=== PATIENT | male | born 1950 | race Caucasian/White ===

== ENCOUNTER 2016-11-30 08:10 | Inpatient (IN) ==
[2016-11-30 09:45] LABS: Basophils % 0.3 %; Eosinophils # 0.1 K/mcL (0.0-0.6); Eosinophils % 0.9 %; Hematocrit 42.3 % (37.5-50.1); Hemoglobin 13.8 g/dL (12.9-16.9); Immature Granulocytes % 0.4 % (0-4); Immature Platelets 8.9 % (1.1-6.1); Lymphocytes # 1.2 K/mcL (0.6-4.6); Mean Corpuscular HGB Conc 32.6 g/dL (31.6-35.5); Mean Corpuscular Hemoglobin 29.9 pg (28.0-33.3); Mean Corpuscular Volume 91.8 fL (83.0-100.0); Mean Platelet Volume 10.7 fL (9.4-12.4); Monocytes # 0.5 K/mcL (0.0-1.3); Monocytes % 6.9 %; Neutrophils # 5.2 K/mcL (1.6-8.9); Platelet Count 144 K/mcL (140-400); Red Blood Count 4.61 M/mcL (4.19-5.50); Red Cell Distribution Width 14.6 % (11.5-14.5); Segmented Neutrophils % 74.5 %
[2016-11-30 09:52] LABS: INR 1.1; Prothrombin Time 12.3 Seconds (9.4-12.1)
[2016-11-30 09:55] LABS: Activated Partial Thrombo Time 33.8 Seconds (26.0-36.0)
[2016-11-30 09:56] LABS: BUN/Creatinine Ratio 23 (6-26); Blood Urea Nitrogen 14 mg/dL (8-26); Calcium 8.8 mg/dL (8.6-10.8); Carbon Dioxide 27 mEq/L (19-29); Chloride 95 mEq/L (98-109); Glucose 80 mg/dL (70-99); Osmolality,Calculated 269 (280-300); Potassium 4.4 mEq/L (3.5-4.5); Sodium 130 mEq/L (136-145); eGFR For African Americans > 60 (> 60); eGFR For Non-African Americans > 60 (> 60)
[2016-12-01 07:22] LABS: Basophils % 0.1 %; Eosinophils % 0.4 %; Hematocrit 39.6 % (37.5-50.1); Immature Granulocytes % 0.1 % (0-4); Lymphocytes % 13.3 %; Mean Corpuscular HGB Conc 32.8 g/dL (31.6-35.5); Mean Corpuscular Hemoglobin 30.4 pg (28.0-33.3); Mean Corpuscular Volume 92.7 fL (83.0-100.0); Mean Platelet Volume 11.7 fL (9.4-12.4); Monocytes # 0.5 K/mcL (0.0-1.3); Platelet Count 122 K/mcL (140-400); Red Blood Count 4.27 M/mcL (4.19-5.50); Red Cell Distribution Width 14.6 % (11.5-14.5); Segmented Neutrophils % 79.1 %
[2016-12-01 08:06] LABS: BUN/Creatinine Ratio 18 (6-26); Blood Urea Nitrogen 12 mg/dL (8-26); Calcium 8.4 mg/dL (8.6-10.8); Carbon Dioxide 29 mEq/L (19-29); Chloride 90 mEq/L (98-109); Glucose 76 mg/dL (70-99); Osmolality,Calculated 265 (280-300); Potassium 3.9 mEq/L (3.5-4.5); Sodium 128 mEq/L (136-145); eGFR For African Americans > 60 (> 60); eGFR For Non-African Americans > 60 (> 60)
[2016-12-01 14:44] LABS: ABG Base Excess 3.9 mEq/L (-2.0 to 3.0); ABG HCO3 36.8 mEQ/L (21-27); ABG Oxygen Saturation 90 % (95-98); ABG PO2 75 mmHg (85-104); ABG TCO2 40.1 mEq/L (20-26)
[2016-12-01 14:46] LABS: ABG PCO2 108 mmHg (35-45); ABG PH 7.14 pH Units (7.32-7.45)
[2016-12-01 14:47] LABS: Blood Gas FiO2 28 %
[2016-12-01 16:58] LABS: ABG Base Excess 4.8 mEq/L (-2.0 to 3.0); ABG Oxygen Saturation 96 % (95-98); ABG PO2 98 mmHg (85-104)
[2016-12-01 17:00] LABS: ABG PCO2 99 mmHg (35-45); ABG PH 7.18 pH Units (7.32-7.45); Blood Gas FiO2 35 %
[2016-12-01 18:42] LABS: ABG Base Excess 8.4 mEq/L (-2.0 to 3.0); ABG HCO3 34.9 mEQ/L (21-27); ABG Oxygen Saturation 96 % (95-98); ABG PCO2 55 mmHg (35-45); ABG PH 7.41 pH Units (7.32-7.45); ABG PO2 79 mmHg (85-104); ABG TCO2 36.6 mEq/L (20-26); Blood Gas FiO2 35 %
[2016-12-02 04:37] LABS: Basophils % 0.3 %; Eosinophils # 0.1 K/mcL (0.0-0.6); Eosinophils % 0.9 %; Hematocrit 41.5 % (37.5-50.1); Hemoglobin 13.8 g/dL (12.9-16.9); Immature Granulocytes % 0.3 % (0-4); Lymphocytes # 1.5 K/mcL (0.6-4.6); Lymphocytes % 21.6 %; Mean Corpuscular HGB Conc 33.3 g/dL (31.6-35.5); Mean Corpuscular Hemoglobin 29.7 pg (28.0-33.3); Mean Corpuscular Volume 89.4 fL (83.0-100.0); Mean Platelet Volume 11.5 fL (9.4-12.4); Monocytes # 0.8 K/mcL (0.0-1.3); Monocytes % 11.6 %; Neutrophils # 4.4 K/mcL (1.6-8.9); Platelet Count 127 K/mcL (140-400); Red Blood Count 4.64 M/mcL (4.19-5.50); Red Cell Distribution Width 14.6 % (11.5-14.5); Segmented Neutrophils % 65.3 %
[2016-12-02 04:48] LABS: Ionized Calcium 1.09 mmol/L (1.15-1.35)
[2016-12-02 04:58] LABS: Alanine Aminotransferase 16 Units/L (0-55); Albumin 2.9 g/dL (3.5-5.0); Albumin/Globulin Ratio 0.7 (1.1-2.2); Alkaline Phosphatase 115 Units/L (38-126); Aspartate Amino Transferase 16 Units/L (5-34); BUN/Creatinine Ratio 13 (6-26); Bilirubin,Direct 0.5 mg/dL (0.0-0.5); Bilirubin,Indirect 0.5 mg/dL (0.0-1.2); Blood Urea Nitrogen 12 mg/dL (8-26); Carbon Dioxide 30 mEq/L (19-29); Chloride 93 mEq/L (98-109); Globulin 3.9 g/dL (2.4-3.5); Glucose 64 mg/dL (70-99); Magnesium 1.3 mg/dL (1.6-2.6); Osmolality,Calculated 274 (280-300); Phosphorous 1.2 mg/dL (2.3-4.7); Potassium 3.6 mEq/L (3.5-4.5); Sodium 133 mEq/L (136-145); Total Protein 6.8 g/dL (6.0-8.3); eGFR For African Americans > 60 (> 60); eGFR For Non-African Americans > 60 (> 60)
[2016-12-02 05:28] LABS: ABG Base Excess 12.2 mEq/L (-2.0 to 3.0); ABG HCO3 34.4 mEQ/L (21-27); ABG Oxygen Saturation 91 % (95-98); ABG PCO2 35 mmHg (35-45); ABG TCO2 35.5 mEq/L (20-26)
[2016-12-02 05:31] LABS: ABG PO2 50 mmHg (85-104)
[2016-12-03 04:00] LABS: ABG Base Excess 7.5 mEq/L (-2.0 to 3.0); ABG HCO3 33.7 mEQ/L (21-27); ABG Oxygen Saturation 96 % (95-98); ABG PCO2 52 mmHg (35-45); ABG PH 7.42 pH Units (7.32-7.45); ABG PO2 83 mmHg (85-104); ABG TCO2 35.3 mEq/L (20-26)
[2016-12-03 04:01] LABS: Blood Gas FiO2 40 %
[2016-12-03 04:45] LABS: Basophils % 0.2 %; Eosinophils # 0.1 K/mcL (0.0-0.6); Eosinophils % 0.6 %; Hematocrit 40.1 % (37.5-50.1); Hemoglobin 13.1 g/dL (12.9-16.9); Immature Granulocytes % 0.5 % (0-4); Lymphocytes # 1.4 K/mcL (0.6-4.6); Lymphocytes % 14.6 %; Mean Corpuscular HGB Conc 32.7 g/dL (31.6-35.5); Mean Corpuscular Hemoglobin 30.5 pg (28.0-33.3); Mean Corpuscular Volume 93.3 fL (83.0-100.0); Mean Platelet Volume 11.3 fL (9.4-12.4); Monocytes # 1.2 K/mcL (0.0-1.3); Monocytes % 12.2 %; Platelet Count 120 K/mcL (140-400); Red Cell Distribution Width 15.4 % (11.5-14.5); Segmented Neutrophils % 71.9 %
[2016-12-03 04:47] LABS: Ionized Calcium 1.09 mmol/L (1.15-1.35)
[2016-12-03 05:01] LABS: Albumin 2.7 g/dL (3.5-5.0); Albumin/Globulin Ratio 0.7 (1.1-2.2); Bilirubin,Direct 0.7 mg/dL (0.0-0.5); Bilirubin,Indirect 0.5 mg/dL (0.0-1.2); Bilirubin,Total 1.2 mg/dL (0.2-1.2); Calcium 8.9 mg/dL (8.6-10.8); Globulin 3.9 g/dL (2.4-3.5); Magnesium 1.4 mg/dL (1.6-2.6); Potassium 3.7 mEq/L (3.5-4.5); Total Protein 6.6 g/dL (6.0-8.3)
[2016-12-03 05:03] LABS: Phosphorous 3.1 mg/dL (2.3-4.7)
[2016-12-04 05:36] LABS: Ionized Calcium 1.03 mmol/L (1.15-1.35)
[2016-12-04 05:44] LABS: Basophils % 0.2 %; Eosinophils % 0.2 %; Hemoglobin 12.6 g/dL (12.9-16.9); Immature Granulocytes % 0.5 % (0-4); Lymphocytes # 1.5 K/mcL (0.6-4.6); Lymphocytes % 11.7 %; Mean Corpuscular HGB Conc 32.3 g/dL (31.6-35.5); Mean Corpuscular Hemoglobin 30.2 pg (28.0-33.3); Mean Corpuscular Volume 93.5 fL (83.0-100.0); Mean Platelet Volume 11.6 fL (9.4-12.4); Monocytes # 1.2 K/mcL (0.0-1.3); Monocytes % 9.4 %; Neutrophils # 9.8 K/mcL (1.6-8.9); Platelet Count 139 K/mcL (140-400); Red Blood Count 4.17 M/mcL (4.19-5.50)
[2016-12-04 05:47] LABS: Alanine Aminotransferase 16 Units/L (0-55); Albumin 2.6 g/dL (3.5-5.0); Albumin/Globulin Ratio 0.6 (1.1-2.2); Alkaline Phosphatase 93 Units/L (38-126); Aspartate Amino Transferase 27 Units/L (5-34); BUN/Creatinine Ratio 14 (6-26); Bilirubin,Direct 0.9 mg/dL (0.0-0.5); Blood Urea Nitrogen 15 mg/dL (8-26); Calcium 8.9 mg/dL (8.6-10.8); Carbon Dioxide 28 mEq/L (19-29); Chloride 94 mEq/L (98-109); Globulin 4.4 g/dL (2.4-3.5); Glucose 94 mg/dL (70-99); Magnesium 1.8 mg/dL (1.6-2.6); Osmolality,Calculated 279 (280-300); Phosphorous 3.2 mg/dL (2.3-4.7); Potassium 4.1 mEq/L (3.5-4.5); Sodium 134 mEq/L (136-145); eGFR For African Americans > 60 (> 60); eGFR For Non-African Americans > 60 (> 60)
[2016-12-04 05:48] LABS: Bilirubin,Total 1.9 mg/dL (0.2-1.2)
[2016-12-04 12:04] LABS: ABG Base Excess 6.8 mEq/L (-2.0 to 3.0); ABG HCO3 33.7 mEQ/L (21-27); ABG Oxygen Saturation 93 % (95-98); ABG PCO2 57 mmHg (35-45); ABG PH 7.38 pH Units (7.32-7.45); ABG PO2 69 mmHg (85-104); ABG TCO2 35.4 mEq/L (20-26)
[2016-12-04 12:05] LABS: Blood Gas FiO2 70 %
[2016-12-05 05:36] LABS: BUN/Creatinine Ratio 19 (6-26); Blood Urea Nitrogen 16 mg/dL (8-26); Calcium 8.8 mg/dL (8.6-10.8); Carbon Dioxide 29 mEq/L (19-29); Chloride 96 mEq/L (98-109); Glucose 86 mg/dL (70-99); Osmolality,Calculated 284 (280-300); Phosphorous 2.6 mg/dL (2.3-4.7); Potassium 4.1 mEq/L (3.5-4.5); Sodium 137 mEq/L (136-145); eGFR For African Americans > 60 (> 60); eGFR For Non-African Americans > 60 (> 60)
[2016-12-05 06:25] LABS: Basophils % 0.2 %; Eosinophils # 0.1 K/mcL (0.0-0.6); Eosinophils % 1.3 %; Hematocrit 41.1 % (37.5-50.1); Hemoglobin 13.2 g/dL (12.9-16.9); Immature Granulocytes % 0.5 % (0-4); Lymphocytes # 1.3 K/mcL (0.6-4.6); Lymphocytes % 12.8 %; Mean Corpuscular HGB Conc 32.1 g/dL (31.6-35.5); Mean Corpuscular Hemoglobin 30.3 pg (28.0-33.3); Mean Corpuscular Volume 94.5 fL (83.0-100.0); Mean Platelet Volume 11.8 fL (9.4-12.4); Monocytes % 9.9 %; Neutrophils # 7.4 K/mcL (1.6-8.9); Platelet Count 136 K/mcL (140-400); Red Blood Count 4.35 M/mcL (4.19-5.50); Red Cell Distribution Width 14.8 % (11.5-14.5); Segmented Neutrophils % 75.3 %
[2016-12-05 13:56] VITALS: BP 112/72
== END 2016-12-05 16:20 | disposition home or self-care (01) | DRG 208 ==
LOC: EMEROO 08:10 → 2NENU 08:10 → SUATTDRO 12-01 18:13 → 2NNU 12-03 16:34
PROVIDERS: ADMIT Internal Medicine; ATTEND Internal Medicine

== ENCOUNTER 2018-04-11 22:11 | Observation (INO) ==
[2018-04-11] MEDS ORDERED: 0.9 % Sodium Chloride 1,000 ML IVC ONE (22:38)
[2018-04-11 23:41] LABS: VBG HCO3 22 mEq/L (21-27); VBG PCO2 35 mmHg (41-51); VBG PH 7.42 pH Units (7.32-7.42); VBG PO2 105 mmHg (25-50)
--- NOTE | 2018-04-11 23:42 | Emergency Department Note ---
Disposition Clinical Impression: UTI (urinary tract infection) Qualifiers: Urinary tract infection type: acute cystitis Hematuria presence: with hematuria Qualified Code(s): N30.01 - Acute cystitis with hematuria Hydronephrosis Qualifiers: Qualified Code(s): N13.30 - Disposition: Admitted As Inpatient Condition: Good General Adult HPI - General Chief complaint: ED Urogenital-Male Stated complaint: UTI, headache Time Seen by Provider: 04/11/18 22:25 Source: patient Mode of arrival: private vehicle Limitations: no limitations Nursing Notes Reviewed: Yes Vital Signs Reviewed: Yes - History of Present Illness HPI Narrative: 68-year-old male with a history of quadriplegia, COPD, chronic A. fib without anticoagulation, pacer, colostomy, nephrectomy status post kidney cancer, chronic Rasheed catheter, pressure ulcers presents emergency department for UTI [address] Alfaro from urology. Dr. Alfaro had placed patient on doxycycline for this UTI which failed, they changed another antibiotic which he has been on for 7 days. Patient comes to the emergency department due to his catheter leaking, noticing heterogenous drainage which appears to be "pus". Patient also complaining of new onset headaches to the top of his head for the last week and half. Patient and family states he is unsure why they came on but they are throbbing, they are associated with his catheter leaking as states that when he has a really bad headache the catheter leaks even more. Patient follows with [facility] for his wounds and is status post debridement, orthopedic surgery for wound a few months ago. Patient family deny fever, difficulty breathing, shortness of breath. Patient is unable to feel if he becomes nauseous or not. states that he has had adequate production of stool in his bag and urine from the catheter. Patient does take aspirin 81 mg every day for the chronic A. fib. Apparently, he had been on anticoagulation however, this resulting in bleeding through his catheter so it was stopped. Patient and family deny confusion, alteration of mental status, increased weakness, visual disturbances, strokelike symptoms. Onset (ago): week(s) Pain Scale: 6 - Related Data Home Medications Medication Instructions Recorded Confirmed Aspirin Enteric Coated [Aspirin EC] 81 mg PO HS 05/25/15 11/25/17 Dantrolene Sodium 100 mg PO TID 05/30/16 11/25/17 traZODone [TraZODone] 50 mg PO HS 11/30/16 11/25/17 Ascorbate Calcium [Vitamin C] 500 mg PO DAILY 01/15/17 11/25/17 Multivit-Min/FA/Lycopen/Lutein 1 each PO DAILY 01/15/17 11/25/17 [Adults 50+ Multivitamin Tablet] Acidophilus Lactobacilli 02/03/18 Fluticasone Propionate Nasal 02/03/18 [Flonase] Furosemide [Lasix] 20 mg PO 04/12/18 04/12/18 Allergies Allergy/AdvReac Type Severity Reaction Status Date / Time latex Allergy Rash Verified 04/11/18 22:23 Sulfa (Sulfonamide Allergy Difficulty Verified 11/30/16 13:00 Antibiotics) Breathing All systems ED: reviewed and negative except as stated. Review of Systems: As Per HPI Past Medical History - Past Medical History Attestation: Yes The following information was validated with the patient. Source: patient Medical history: Reports: cancer, CHF, COPD Surgical history: Reports: cancer surgery, cholecystectomy, colostomy, pacemaker /AICD, other Psychiatric history: Reports: no psych history - Social History Smoking Status: Never smoker Smokeless Tobacco Status: No Alcohol use: Reports: none Drug use: Reports: none Physical Exam - General Limitations: no limitations General appearance: alert, in no apparent distress - Head Head exam: atraumatic, normocephalic, normal inspection - Eye Eye exam: Present: normal appearance, PERRL, EOMI - ENT ENT exam: mucous membranes moist - Neck Neck exam: Present: normal inspection, full ROM, trachea midline. Absent: tenderness, lymphadenopathy - Chest Chest inspection: Present: normal inspection, symmetric chest wall rise - Respiratory Respiratory exam: Present: normal lung sounds bilaterally - Cardiovascular Cardiovascular exam: Present: regular rate, normal rhythm, normal heart sounds - Abdominal Exam Abdominal exam: Present: soft, normal bowel sounds. Absent: distention, guarding, rebound, rigidity - Male exam: Present: scrotal swelling (Chronic), other (Full catheter in place noted with heterogenous urine, urine dark yellow, small amount of drainage from catheter at penile site) - Back Exam Back exam: Present: normal inspection, full ROM. Absent: tenderness - Neurological Exam Neurological exam: Present: alert, oriented X3 - Psychiatric Psychiatric exam: Present: normal affect, normal mood - Skin Skin exam: Present: warm, dry, intact, normal color, other (Wound VAC to right hip, drainage sanguinous, no signs of infection around wound, no pustular drainage to container) Course Course Narrative: Nontoxic appearing male in no acute distress. He is resting quietly in the bed. Alert and oriented 3, neurologically intact-to baseline. He follows conversation well. Respirations are easy and even, lungs clear to auscultate. Abdomen soft colostomy in place; scrotal swelling, chronic hydrocele, rasheed catheter patent and draining dark yellow urine with some heterogenous particles , small amount of leaking around insertion area, catheter clean. Wound VAC to right hip sealed, draining fluid without signs of purulence, kevin-wound in good condition. We will obtain basic labs, head CT, abd CT and reevaluate. Spoke with attending Dr. Koehler who is agreeable to plan of care - Reevaluation(s) Reevaluation #1: Patient has been resting comfortably, catheter change with a 20-[place] Rasheed which is what he uses at home, any urinary return and then noted with clots. Rasheed irrigated with minimal return, why states this is common and that Dr. Alfaro sometimes irrigates where he actually has to remove the clots due to bladder collapsing. I spoke with Dr. Haro who is on-call for urology regarding possibility of CBI, Dr. Haro states he is okay was CBI though it does take a very large bore catheter, he states attempt manual irrigation or just await consultation in AM. Time: 00:52 Reevaluation #2: CT scans returned, head CT negative for intercranial bleeding or acute abnormality. Abdominal CT shows mild hydronephrosis to a kidney obstruction or stricture at the UVJ. Patient has been resting quietly, speaking with his . No change in physical assessment. Urinalysis to be sent by culture. Started linezold IV. Spoke with hospitalist regarding admission, accepted patient and will add ceftriaxone as well for double coverage of recent cultures of urine. Urology will be consulted for admission. At this time patient will be admitted to the hospital. Family is agreeable with plan of care. After initially entering hospital hypersensitive, but admitted to hospital patient blood pressure had normalized, he remained afebrile, non-tachycardic, not hypoxic. I did not appreciate any signs of sepsis. Time: 02:37 Vital Signs Temperature 98.0 F 04/11/18 22:14 Pulse Rate 86 04/11/18 22:14 Respiratory Rate 16 04/11/18 22:14 Blood Pressure 91/71 04/11/18 22:14 O2 Sat by Pulse Oximetry 94 04/11/18 22:14 Temperature 98.0 F 04/12/18 03:40 Pulse Rate 77 04/12/18 03:40 Respiratory Rate 14 04/12/18 03:40 Blood Pressure 103/66 04/12/18 03:40 O2 Sat by Pulse Oximetry 96 04/12/18 03:40 Oxygen Delivery Oxygen Delivery Room Air Medical Decision Making - Medical Records Medical records reviewed: Yes I reviewed the patient's medical records. - Lab Data Lab results reviewed: Yes I reviewed the patient's lab results. Result diagrams: 04/11/18 23:22 04/11/18 23:22 Lab Results 04/11/18 04/11/18 04/11/18 Range/Units 23:22 23:22 23:22 WBC 10.7 (4.3-11.1) K/mcL RBC 4.64 (4.19-5.50) M/mcL Hgb 13.3 (12.9-16.9) g/dL Hct 41.9 (37.5-50.1) % MCV 90.3 (83.0-100.0) fL MCH 28.7 (28.0-33.3) pg MCHC 31.7 (31.6-35.5) g/dL RDW 17.4 H (11.5-14.5) % Plt Count 207 (140-400) K/mcL MPV 11.2 (9.4-12.4) fL Immature Gran % 0.8 (0-4) % Seg Neutrophils % 67.2 % Lymphocytes % 24.1 % Monocytes % 4.9 % Eosinophils % 2.5 % Basophils % 0.5 % Neutrophils # 7.2 (1.6-8.9) K/mcL Lymphocytes # 2.6 (0.6-4.6) K/mcL Monocytes # 0.5 (0.0-1.3) K/mcL Eosinophils # 0.3 (0.0-0.6) K/mcL Basophils # 0.1 (0.0-0.2) K/mcL PT 13.6 H (9.4-12.1) Seconds INR 1.2 APTT 34.0 (26.0-36.0) Seconds VBG pH (7.32-7.42) pH Units VBG pCO2 (41-51) mmHg VBG pO2 (25-50) mmHg VBG HCO3 (21-27) mEq/L Sodium 140 (136-145) mEq/L Potassium 3.8 (3.5-5.1) mEq/L Chloride 110 H (98-107) mEq/L Carbon Dioxide 21 L (23-29) mEq/L BUN 24 H (8-23) mg/dL Creatinine 0.79 (0.70-1.30) mg/dL Est GFR ( Amer) > 60 (> 60) Est GFR (Non-Af Amer) > 60 (> 60) BUN/Creatinine Ratio 30 H (6-26) Glucose 98 (70-105) mg/dL Calculated Osmolality 294 (280-300) Lactic Acid (0.5-2.2) mmol/L Calcium 8.5 L (8.6-10.3) mg/dL Ur Specimen Adequacy Urine Color (Yellow) Urine Clarity (Clear) Urine pH (5.0-8.0) pH Units Ur Specific [place] (1.010-1.025) Urine Protein (Neg-Trace) mg/dL Urine Glucose (UA) (Normal) mg/dL Urine Ketones (Negative) mg/dL Urine Blood (Negative) Urine Nitrite (Negative) Urine Bilirubin (Negative) Urine Urobilinogen (Normal) mg/dL Ur Leukocyte Esterase (Negative) Ur Culture Indicated? (NO) 04/11/18 04/11/18 04/12/18 Range/Units 23:22 23:32 00:40 WBC (4.3-11.1) K/mcL RBC (4.19-5.50) M/mcL Hgb (12.9-16.9) g/dL Hct (37.5-50.1) % MCV (83.0-100.0) fL MCH (28.0-33.3) pg MCHC (31.6-35.5) g/dL RDW (11.5-14.5) % Plt Count (140-400) K/mcL MPV (9.4-12.4) fL Immature Gran % (0-4) % Seg Neutrophils % % Lymphocytes % % Monocytes % % Eosinophils % % Basophils % % Neutrophils # (1.6-8.9) K/mcL Lymphocytes # (0.6-4.6) K/mcL Monocytes # (0.0-1.3) K/mcL Eosinophils # (0.0-0.6) K/mcL Basophils # (0.0-0.2) K/mcL PT (9.4-12.1) Seconds INR APTT (26.0-36.0) Seconds VBG pH 7.42 (7.32-7.42) pH Units VBG pCO2 35 L (41-51) mmHg VBG pO2 105 H (25-50) mmHg VBG HCO3 22 (21-27) mEq/L Sodium (136-145) mEq/L Potassium (3.5-5.1) mEq/L Chloride (98-107) mEq/L Carbon Dioxide (23-29) mEq/L BUN (8-23) mg/dL Creatinine (0.70-1.30) mg/dL Est GFR ( Amer) (> 60) Est GFR (Non-Af Amer) (> 60) BUN/Creatinine Ratio (6-26) Glucose (70-105) mg/dL Calculated Osmolality (280-300) Lactic Acid 1.5 (0.5-2.2) mmol/L Calcium (8.6-10.3) mg/dL Ur Specimen Adequacy See below A Urine Color Red A (Yellow) Urine Clarity Turbid A (Clear) Urine pH 7.0 (5.0-8.0) pH Units Ur Specific [place] 1.021 (1.010-1.025) Urine Protein >=1000 H (Neg-Trace) mg/dL Urine Glucose (UA) Normal (Normal) mg/dL Urine Ketones Negative (Negative) mg/dL Urine Blood Large H (Negative) Urine Nitrite Positive A (Negative) Urine Bilirubin Negative (Negative) Urine Urobilinogen Normal (Normal) mg/dL Ur Leukocyte Esterase Large H (Negative) Ur Culture Indicated? YES A (NO) - Radiology Data Radiology results reviewed: Yes I reviewed the patient's radiology results. Head CT 04/12/18 23:38 IMPRESSION: No acute intracranial abnormality. D/ / Mikhail Carter MD / Mikhail Carter MD Interpreting Provider: Mikhail Carter MD Abdomen/Pelvis CT 04/12/18 23:56 IMPRESSION: There has been interval development of mild right hydronephrosis and hydroureter with point of obstruction apparently at the UVJ. There is no evidence of an obstructing calculus. Obstruction may be secondary to stricture at the UVJ, bladder wall hypertrophy, outflow obstruction, acute/chronic cystitis and/or tumor. Correlation with cystoscopy and right retrograde may be helpful. D/ / Mikhail Carter MD / Mikhail Carter MD Interpreting Provider: Mikhail Carter MD
[2018-04-11 23:43] LABS: INR 1.2; Prothrombin Time 13.6 Seconds (9.4-12.1)
[2018-04-11 23:52] LABS: BUN/Creatinine Ratio 30 (6-26); Blood Urea Nitrogen 24 mg/dL (8-23); Calcium 8.5 mg/dL (8.6-10.3); Carbon Dioxide 21 mEq/L (23-29); Chloride 110 mEq/L (98-107); Glucose 98 mg/dL (70-105); Osmolality,Calculated 294 (280-300); Potassium 3.8 mEq/L (3.5-5.1); Sodium 140 mEq/L (136-145); eGFR For African Americans > 60 (> 60); eGFR For Non-African Americans > 60 (> 60)
[2018-04-12 00:10] LABS: Basophils # 0.1 K/mcL (0.0-0.2); Basophils % 0.5 %; Eosinophils # 0.3 K/mcL (0.0-0.6); Eosinophils % 2.5 %; Hematocrit 41.9 % (37.5-50.1); Hemoglobin 13.3 g/dL (12.9-16.9); Immature Granulocytes % 0.8 % (0-4); Lymphocytes # 2.6 K/mcL (0.6-4.6); Lymphocytes % 24.1 %; Mean Corpuscular HGB Conc 31.7 g/dL (31.6-35.5); Mean Corpuscular Hemoglobin 28.7 pg (28.0-33.3); Mean Corpuscular Volume 90.3 fL (83.0-100.0); Mean Platelet Volume 11.2 fL (9.4-12.4); Monocytes # 0.5 K/mcL (0.0-1.3); Monocytes % 4.9 %; Neutrophils # 7.2 K/mcL (1.6-8.9); Platelet Count 207 K/mcL (140-400); Red Blood Count 4.64 M/mcL (4.19-5.50); Red Cell Distribution Width 17.4 % (11.5-14.5); Segmented Neutrophils % 67.2 %
[2018-04-12 00:52] LABS: Bilirubin,Urine Negative (Negative); Blood,Urine Large (Negative); Clarity,Urine Turbid (Clear); Color,Urine Red (Yellow); Glucose,Urine (UA) Normal (Normal); Ketones,Urine Negative (Negative); Leukocyte Esterase,Urine Large (Negative); Nitrite,Urine Positive (Negative); Protein,Urine >=1000 mg/dL (Neg-Trace); Specific Gravity,Urine 1.021 (1.010-1.025); Urobilinogen,Urine Normal (Normal)
[2018-04-12] MEDS ORDERED: cefTRIAXone 1,000 MG in Water for inj. (sterile) 20 ML 10 ML IVP ONE (02:33)
--- NOTE | 2018-04-12 03:50 | Internal Med History&Physical ---
<Ivet Davis - Last Filed: 04/12/18 04:47> Date of Encounter: 04/12/18 Time of Encounter: 03:40 Internal Medicine - H&P: HPI Chief complaint: UTI and headache Admitted From: Emergency Dept Plans for Post Hospital Care: Home History of present illness: Mr. Garrido is a 68 year old male with past medical history of chronic indwelling catheter, paraplegia, colostomy, atrial fibrillation, pacemaker, nephrectomy status post kidney cancer presented to [facility] complaining of a UTI. He reported that he has had the UTI since January 2018 and that his urologist Dr. Alfaro has placed them on 3 different types of antibiotics which have failed in treatment such as doxycycline and the most recently a different antibiotic that he cannot remember. He reported that 2 weeks he started noticing blood and pus in his urine catheter bag so Dr. Alfaro had him stop taking his eliquis that he takes for his atrial fibrillation, however there is still no resolution to the hematuria and pus. Additionally, he has had "splitting" headaches over his forehead that worsen in intensity when his catheter gets clogged from the blood. He notes the urine in his catheter bag is foul-smelling and and leaking. He denies fever, chills, abdominal pain, nausea, vomiting, dysuria, chest pain, shortness of breath. Of note, he is a paraplegic for the past 22 years after a traumatic fall down stairs and has a colostomy bag, and a wound VAC over his left buttock from a decubitus ulcer that he follows with [facility] for. He has a DNR CCA. In the ED abdominal CT showed mild right hydronephrosis and hydroureter with obstruction at UVJ that may be due to stricture, bladder wall hypertrophy, outflow obstruction, tumor. Urinalysis indicated UTI with positive leukocyte esterase, nitrite, blood. Head CT was negative for acute intracranial process. They urologist Dr. Haro was consulted and is to evaluate the patient in the a.m. The patient was given a dose of IV fluids, Rocephin, and linezolid. Urine culture was sent. Past Med Surg Social Fam HX - Past Medical History Attestation: Yes The following information was validated with the patient. Source: patient Medical history: atrial fibrillation, cancer, CHF, COPD Additional medical history: Paraplegic. kidney cancer Psychiatric history: no psych history - Past Surgical History Surgical History: cancer surgery, cholecystectomy, colostomy, pacemaker/AICD, other Additional surgical history: colostomy,left nephrectomy, chronic catheter. wound surgery - Social History Smoking Status: Never smoker Smokeless Tobacco Status: No Alcohol use: none Drug use: none - Family History Mother Living Status: Father Family Member Ethnicity: Non- Living Status: Hx Family Cardiac Disorders: No Hx Family Respiratory Disorders: No Hx Family Cancer: Yes Hx Family GI Disorders: No Hx Family Endocrine Disorder: Yes Hx Family Neuromuscular Disorders: No Hx Family Neurologic Disorders: Yes Hx Family HEENT Disorders: No Hx Family Autoimmune Disorders: No Brother Hx Family GI Disorders: Yes Internal Medicine - H&P: Meds Aspirin Enteric Coated [Aspirin EC] 81 mg PO HS 05/25/15 [History] Dantrolene Sodium 100 mg PO TID 05/30/16 [History] traZODone [TraZODone] 50 mg PO HS 11/30/16 [History] Ascorbate Calcium [Vitamin C] 500 mg PO DAILY 01/15/17 [History] Multivit-Min/FA/Lycopen/Lutein [Adults 50+ Multivitamin Tablet] 1 each PO DAILY 01/15/17 [History] Acidophilus Lactobacilli 02/03/18 [History] Fluticasone Propionate Nasal [Flonase] 02/03/18 [History] Furosemide [Lasix] 20 mg PO 04/12/18 [History] 3 Allergy/AdvReac Type Severity Reaction Status Date / Time latex Allergy Rash Verified 04/11/18 22:23 Sulfa (Sulfonamide Allergy Difficulty Verified 11/30/16 13:00 Antibiotics) Breathing All Systems PM: A 10-system review of systems was performed and is negative for pertinent findings except as documented above in the HPI. - Constitutional Constitutional: no chills, no fever(s), no weakness - EENT Eyes: no loss of vision - Cardiovascular Cardiovascular ROS IM: no chest pain, no diaphoresis, no syncope - Respiratory Respiratory: no cough, no dyspnea, no wheezing - Gastrointestinal Gastrointestinal: no abdominal pain, no change in stool character, no nausea, no vomiting - Genitourinary Genitourinary ROS male: hematuria, other (Pus and urine), no dysuria - Musculoskeletal Musculoskeletal ROS IM: no back pain - Integumentary Integumentary IM: no erythema, no new lesions - Neurological Neurological ROS: headache(s), no confusion - Psychiatric Psychiatric: no confusion - Endocrine Endocrine IM: no cold intolerance - Hematologic/Lymphatic Hematologic/Lymphatic: easy bleeding - Constitutional Vitals: Temp Pulse Resp BP Pulse Ox 98.0 F 77 14 103/66 96 04/12/18 03:40 04/12/18 03:40 04/12/18 03:40 04/12/18 03:40 04/12/18 03:40 General appearance: Present: A&O X 3, pleasant, no acute distress - Head Head exam: Present: atraumatic, normal inspection - Respiratory Respiratory exam: Present: CTAB. Absent: rales, rhonchi - Cardiovascular Cardiovascular exam: Present: irregular rhythm. Absent: systolic murmur - GI/Abdominal GI/Abdominal exam: Present: normal bowel sounds, soft. Absent: guarding, rigid , tenderness Additional comments: Colostomy bag in place - Extremities Exam Extremities exam: Present: pedal edema. Absent: cyanotic, tenderness - Neurological Exam Neurological exam: Present: alert, oriented X3 - Psychiatric Psychiatric exam: Present: normal affect, normal mood - Skin Additional comments: Wound VAC in place over right buttocks Internal Med - H&P Results - Labs CBC & Chem 7: 04/11/18 23:22 04/11/18 23:22 - Impressions ITS Impressions Head CT 04/12/18 23:38 IMPRESSION: No acute intracranial abnormality. D/ / Mikhail Carter MD / Mikhail Carter MD Interpreting Provider: Mikhail Carter MD Abdomen/Pelvis CT 04/12/18 23:56 IMPRESSION: There has been interval development of mild right hydronephrosis and hydroureter with point of obstruction apparently at the UVJ. There is no evidence of an obstructing calculus. Obstruction may be secondary to stricture at the UVJ, bladder wall hypertrophy, outflow obstruction, acute/chronic cystitis and/or tumor. Correlation with cystoscopy and right retrograde may be helpful. D/ / Mikhail Carter MD / Mikhail Carter MD Interpreting Provider: Mikhail Carter MD - Assessment and plan (1) Hydronephrosis Current Visit: Yes Status: Acute Assessment and plan: Abdominal CT showed mild right hydronephrosis and hydroureter with obstruction at UVJ that may be due to stricture, bladder wall hypertrophy, outflow obstruction, tumor. -Urinalysis indicated UTI with positive leukocyte esterase, nitrite, blood -Urology consulted and will evaluate patient in a.m. -continue chronic indwelling Ulloa catheter Qualifiers: Qualified Code(s): N13.30 - Unspecified hydronephrosis (2) Hematuria Current Visit: Yes Status: Acute Assessment and plan: This is likely secondary to anticoagulation with eliquis for the patient's atrial fibrillation. He stopped taking his eliquis 2 weeks ago when hematuria started per recommendation of his urologist Dr. Alfaro. -Urinalysis demonstrated gross hematuria -hold eliquis Qualifiers: Qualified Code(s): R31.9 - Hematuria, unspecified (3) Chronic UTI Current Visit: No Status: Acute Assessment and plan: He has had chronic UTI since January 2018 for which he has failed out treatment therapy. He has a chronic indwelling catheter which is likely contributing. -Urinalysis demonstrated positive leukocyte esterase, nitrite, blood -afebrile, WBC WNL, lactic acid 1.5 plan -continue IV linezolid due to past urine culture 02/21/2018 positive for VRE. Will de-escalate antibiotics as able. -continue IV Rocephin -urine culture pending (4) Head ache Current Visit: Yes Status: Acute Assessment and plan: Most likely headache vs migraine. He has had "splitting" headaches on his forehead for the past week and a half since he started noticing the hematuria. He notices increase in headaches when the Ulloa calf gets clogged and an improvement of symptoms when the Ulloa catheter is flushed and blood is taken out of it. No nuchal rigidity, fever, chills, loss of vision. -Head CT negative for intracranial abnormality -he reports headache has improved since flushing of the catheter -Tylenol as needed -continue to monitor Qualifiers: Headache type: primary stabbing headache Qualified Code(s): G44.85 - Primary stabbing headache (5) Chronic indwelling Ulloa catheter Current Visit: No Status: Acute Assessment and plan: Chronic indwelling catheter due to paraplegia (6) Atrial fibrillation Current Visit: No Status: Chronic Assessment and plan: History of atrial fibrillation not taking rate limiting medication. He stopped taking his Eliquis for 2 weeks now since noticing the hematuria -hold eliquis Qualifiers: Atrial fibrillation type: chronic Qualified Code(s): I48.2 - Chronic atrial fibrillation (7) Paraplegia following spinal cord injury Current Visit: No Status: Chronic (8) Morbid obesity with BMI of 40.0-44.9, adult Current Visit: No Status: Chronic (9) Colostomy in place Current Visit: Yes Status: Acute Assessment and plan: chronic (10) DVT prophylaxis Current Visit: Yes Status: Acute Assessment and plan: SCD (11) Decubitus ulcer of ischial area Current Visit: Yes Status: Acute Assessment and plan: wound vac in place over ischial decubitus ulcer. -consult wound care Qualifiers: Qualified Code(s): L89.309 - Pressure ulcer of unspecified buttock, unspecified stage - Time Spent With Patient Total time spent is greater than 50% in coordination of care (as documented) at patient's floor/unit and/or counseling patient: <Bethany Salmeron - Last Filed: 04/12/18 05:18> Date of Encounter: 04/12/18 Internal Medicine - H&P: HPI History of present illness: Mr. Garrido is a 68 year old male All Systems PM: A 10-system review of systems was performed and is negative for pertinent findings except as documented above in the HPI. - Constitutional Vitals: Temp Pulse Resp BP Pulse Ox 98.0 F 77 14 103/66 96 04/12/18 03:40 04/12/18 03:40 04/12/18 03:40 04/12/18 03:40 04/12/18 03:40 Internal Med - H&P Results - Labs CBC & Chem 7: 04/11/18 23:22 04/11/18 23:22 - Impressions ITS Impressions Head CT 04/12/18 23:38 IMPRESSION: No acute intracranial abnormality. D/ / Mikhail Carter MD / Mikhail Carter MD Interpreting Provider: Mikhail Carter MD Abdomen/Pelvis CT 04/12/18 23:56 IMPRESSION: There has been interval development of mild right hydronephrosis and hydroureter with point of obstruction apparently at the UVJ. There is no evidence of an obstructing calculus. Obstruction may be secondary to stricture at the UVJ, bladder wall hypertrophy, outflow obstruction, acute/chronic cystitis and/or tumor. Correlation with cystoscopy and right retrograde may be helpful. D/ / Mikhail Carter MD / Mikhail Carter MD Interpreting Provider: Mikhail Carter MD - Attending Attestation Personally examined the patient, reviewed the resident's note. 68-year-old patient who is bedridden due to paraplegia secondary to trauma in the C-spine years ago, history of left renal cancer restart her post left nephrectomy,, status post colostomy done by Dr. Van in the past, chronic indwelling catheter with recurrent UTI with multiple organism such as Escherichia coli, Proteus mirabilis, VRE etc. Recently patient was given doxycycline for VRE treatment. Patient had hematuria therefore Eliquis was put on hold by his urologist but no improvement in hematuria in fact he noticed pus with generalized weakness and not feeling good. In ER initial lab with normal white count, no fever but had slightly low blood pressure therefore IV fluid bolus was given and CT abdomen performed with finding of right mild hydronephrosis and hydroureter with obstruction at the UVJ that could be due to stricture, bladder wall hypertrophy, outflow obstruction. ER physician talked to on-call urologist Dr. benito who advised to admit patient under hospitalist service continue antibiotic and he will consult. Reviewed previous urine culture and based on different sensitivity and failed outpatient therapy it was decided to his start linezolid light and Rocephin. Will make further decision on antibiotic based on urine culture report. Will consult ID if needed. Patient has wound VAC on right hip-surgery done at [facility]. Will consult wound care. Patient is high risk for decubitus ulcer therefore air mattress for pressure reduction will be ordered. - Assessment and plan (1) Chronic indwelling Ulloa catheter Current Visit: No Status: Acute (2) Chronic UTI Current Visit: No Status: Acute (3) Paraplegia following spinal cord injury Current Visit: No Status: Chronic (4) Morbid obesity with BMI of 40.0-44.9, adult Current Visit: No Status: Chronic (5) Atrial fibrillation Current Visit: No Status: Chronic Qualifiers: Atrial fibrillation type: chronic Qualified Code(s): I48.2 - Chronic atrial fibrillation (6) Hydronephrosis Current Visit: Yes Status: Acute Qualifiers: Qualified Code(s): N13.30 - Unspecified hydronephrosis (7) DVT prophylaxis Current Visit: Yes Status: Acute (8) Head ache Current Visit: Yes Status: Acute Qualifiers: Headache type: primary stabbing headache Qualified Code(s): G44.85 - Primary stabbing headache (9) Hematuria Current Visit: Yes Status: Acute Qualifiers: Qualified Code(s): R31.9 - Hematuria, unspecified (10) Colostomy in place Current Visit: Yes Status: Acute (11) Decubitus ulcer of ischial area Current Visit: Yes Status: Acute Qualifiers: Qualified Code(s): L89.309 - Pressure ulcer of unspecified buttock, unspecified stage - Time Spent With Patient Total time spent is greater than 50% in coordination of care (as documented) at patient's floor/unit and/or counseling patient:
[2018-04-12] MEDS ORDERED: Naloxone 0.4 MG/ML INJ IVP PRN ×2 (03:52→05:06)
[2018-04-12 06:19] LABS: Hematocrit 41.3 % (37.5-50.1); Hemoglobin 13.6 g/dL (12.9-16.9); Mean Corpuscular HGB Conc 32.9 g/dL (31.6-35.5); Mean Corpuscular Hemoglobin 29.9 pg (28.0-33.3); Mean Corpuscular Volume 90.8 fL (83.0-100.0); Mean Platelet Volume 11.3 fL (9.4-12.4); Platelet Count 174 K/mcL (140-400); Red Blood Count 4.55 M/mcL (4.19-5.50); Red Cell Distribution Width 17.2 % (11.5-14.5)
[2018-04-12 06:36] LABS: BUN/Creatinine Ratio 29 (6-26); Blood Urea Nitrogen 23 mg/dL (8-23); Calcium 8.5 mg/dL (8.6-10.3); Carbon Dioxide 23 mEq/L (23-29); Chloride 109 mEq/L (98-107); Glucose 100 mg/dL (70-105); Osmolality,Calculated 294 (280-300); Potassium 3.8 mEq/L (3.5-5.1); Sodium 140 mEq/L (136-145); eGFR For African Americans > 60 (> 60); eGFR For Non-African Americans > 60 (> 60)
--- NOTE | 2018-04-12 07:28 | Emergency Department Note ---
Disposition Clinical Impression: UTI (urinary tract infection) Qualifiers: Urinary tract infection type: acute cystitis Hematuria presence: with hematuria Qualified Code(s): N30.01 - Acute cystitis with hematuria Hydronephrosis Qualifiers: Qualified Code(s): N13.30 - Disposition: Admitted As Inpatient Condition: Good General Adult HPI - General Chief complaint: ED Urogenital-Male Stated complaint: UTI, headache Time Seen by Provider: 04/11/18 22:25 Source: patient Mode of arrival: private vehicle Limitations: no limitations Nursing Notes Reviewed: Yes Vital Signs Reviewed: Yes - History of Present Illness Pain Scale: 6 - Related Data Home Medications Medication Instructions Recorded Confirmed Aspirin Enteric Coated [Aspirin EC] 81 mg PO HS 05/25/15 11/25/17 Dantrolene Sodium 100 mg PO TID 05/30/16 11/25/17 traZODone [TraZODone] 50 mg PO HS 11/30/16 11/25/17 Ascorbate Calcium [Vitamin C] 500 mg PO DAILY 01/15/17 11/25/17 Multivit-Min/FA/Lycopen/Lutein 1 each PO DAILY 01/15/17 11/25/17 [Adults 50+ Multivitamin Tablet] Acidophilus Lactobacilli 02/03/18 Fluticasone Propionate Nasal 02/03/18 [Flonase] Furosemide [Lasix] 20 mg PO 04/12/18 04/12/18 Allergies Allergy/AdvReac Type Severity Reaction Status Date / Time latex Allergy Rash Verified 04/11/18 22:23 Sulfa (Sulfonamide Allergy Difficulty Verified 11/30/16 13:00 Antibiotics) Breathing Past Medical History - Past Medical History Medical history: Reports: cancer, CHF, COPD Surgical history: Reports: cancer surgery, cholecystectomy, colostomy, pacemaker /AICD, other Psychiatric history: Reports: no psych history - Social History Smoking Status: Never smoker Smokeless Tobacco Status: No Alcohol use: Reports: none Drug use: Reports: none Physical Exam - General Limitations: no limitations General appearance: alert, in no apparent distress Course Course Narrative: Patient seen in conjunction with [facility]. Patient with concern for complicated UTI and complaints about headache. Patient received CT of the abdomen showed hydronephrosis. Patient had catheter flushed and fixed and states that removal of the blood clot and properly functioning catheter has relieved a lot of his symptoms. Patient's abdomen is soft and nontender to palpation on my evaluation. He is comfortable and in no distress. Patient is nontoxic during my evaluation Patient's headache is now resolved. Patient will receive antibiotics for complicated UTI. CAT scan with concern for proximal obstruction leading to hydronephrosis. Urology has been consulted. Please see [facility]AP's note for further details. Vital Signs Temperature 98.0 F 04/11/18 22:14 Pulse Rate 86 04/11/18 22:14 Respiratory Rate 16 04/11/18 22:14 Blood Pressure 91/71 04/11/18 22:14 O2 Sat by Pulse Oximetry 94 04/11/18 22:14 Temperature 98.0 F 04/12/18 03:40 Pulse Rate 77 04/12/18 03:40 Respiratory Rate 14 04/12/18 03:40 Blood Pressure 103/66 04/12/18 03:40 O2 Sat by Pulse Oximetry 96 04/12/18 03:40 Oxygen Delivery Oxygen Delivery Room Air Medical Decision Making - Lab Data Result diagrams: 04/12/18 06:01 04/12/18 06:01 Lab Results 04/11/18 04/11/18 04/11/18 Range/Units 23:22 23:22 23:22 WBC 10.7 (4.3-11.1) K/mcL RBC 4.64 (4.19-5.50) M/mcL Hgb 13.3 (12.9-16.9) g/dL Hct 41.9 (37.5-50.1) % MCV 90.3 (83.0-100.0) fL MCH 28.7 (28.0-33.3) pg MCHC 31.7 (31.6-35.5) g/dL RDW 17.4 H (11.5-14.5) % Plt Count 207 (140-400) K/mcL MPV 11.2 (9.4-12.4) fL Immature Gran % 0.8 (0-4) % Seg Neutrophils % 67.2 % Lymphocytes % 24.1 % Monocytes % 4.9 % Eosinophils % 2.5 % Basophils % 0.5 % Neutrophils # 7.2 (1.6-8.9) K/mcL Lymphocytes # 2.6 (0.6-4.6) K/mcL Monocytes # 0.5 (0.0-1.3) K/mcL Eosinophils # 0.3 (0.0-0.6) K/mcL Basophils # 0.1 (0.0-0.2) K/mcL PT 13.6 H (9.4-12.1) Seconds INR 1.2 APTT 34.0 (26.0-36.0) Seconds VBG pH (7.32-7.42) pH Units VBG pCO2 (41-51) mmHg VBG pO2 (25-50) mmHg VBG HCO3 (21-27) mEq/L Sodium 140 (136-145) mEq/L Potassium 3.8 (3.5-5.1) mEq/L Chloride 110 H (98-107) mEq/L Carbon Dioxide 21 L (23-29) mEq/L BUN 24 H (8-23) mg/dL Creatinine 0.79 (0.70-1.30) mg/dL Est GFR ( Amer) > 60 (> 60) Est GFR (Non-Af Amer) > 60 (> 60) BUN/Creatinine Ratio 30 H (6-26) Glucose 98 (70-105) mg/dL Calculated Osmolality 294 (280-300) Lactic Acid (0.5-2.2) mmol/L Calcium 8.5 L (8.6-10.3) mg/dL Ur Specimen Adequacy Urine Color (Yellow) Urine Clarity (Clear) Urine pH (5.0-8.0) pH Units Ur Specific Gilbert (1.010-1.025) Urine Protein (Neg-Trace) mg/dL Urine Glucose (UA) (Normal) mg/dL Urine Ketones (Negative) mg/dL Urine Blood (Negative) Urine Nitrite (Negative) Urine Bilirubin (Negative) Urine Urobilinogen (Normal) mg/dL Ur Leukocyte Esterase (Negative) Ur Culture Indicated? (NO) 04/11/18 04/11/18 04/12/18 Range/Units 23:22 23:32 00:40 WBC (4.3-11.1) K/mcL RBC (4.19-5.50) M/mcL Hgb (12.9-16.9) g/dL Hct (37.5-50.1) % MCV (83.0-100.0) fL MCH (28.0-33.3) pg MCHC (31.6-35.5) g/dL RDW (11.5-14.5) % Plt Count (140-400) K/mcL MPV (9.4-12.4) fL Immature Gran % (0-4) % Seg Neutrophils % % Lymphocytes % % Monocytes % % Eosinophils % % Basophils % % Neutrophils # (1.6-8.9) K/mcL Lymphocytes # (0.6-4.6) K/mcL Monocytes # (0.0-1.3) K/mcL Eosinophils # (0.0-0.6) K/mcL Basophils # (0.0-0.2) K/mcL PT (9.4-12.1) Seconds INR APTT (26.0-36.0) Seconds VBG pH 7.42 (7.32-7.42) pH Units VBG pCO2 35 L (41-51) mmHg VBG pO2 105 H (25-50) mmHg VBG HCO3 22 (21-27) mEq/L Sodium (136-145) mEq/L Potassium (3.5-5.1) mEq/L Chloride (98-107) mEq/L Carbon Dioxide (23-29) mEq/L BUN (8-23) mg/dL Creatinine (0.70-1.30) mg/dL Est GFR ( Amer) (> 60) Est GFR (Non-Af Amer) (> 60) BUN/Creatinine Ratio (6-26) Glucose (70-105) mg/dL Calculated Osmolality (280-300) Lactic Acid 1.5 (0.5-2.2) mmol/L Calcium (8.6-10.3) mg/dL Ur Specimen Adequacy See below A Urine Color Red A (Yellow) Urine Clarity Turbid A (Clear) Urine pH 7.0 (5.0-8.0) pH Units Ur Specific Gilbert 1.021 (1.010-1.025) Urine Protein >=1000 H (Neg-Trace) mg/dL Urine Glucose (UA) Normal (Normal) mg/dL Urine Ketones Negative (Negative) mg/dL Urine Blood Large H (Negative) Urine Nitrite Positive A (Negative) Urine Bilirubin Negative (Negative) Urine Urobilinogen Normal (Normal) mg/dL Ur Leukocyte Esterase Large H (Negative) Ur Culture Indicated? YES A (NO)
--- NOTE | 2018-04-12 10:19 | Urology - Consult Note ---
Date of Encounter: 04/12/18 Time of Encounter: 10:17 - Assessment and Plan (1) Hematuria Current Visit: Yes Status: Acute Assessment and plan: 68-year-old woman with a history of gross hematuria. His urine seems to be clearing now. I would avoid anticoagulants at this time. He does not require clot evacuation. We can continue with the Ulloa catheter and hand irrigate as needed. I would avoid placing a 3-way catheter as the irrigation will probably just leak around the catheter. Qualifiers: Hematuria type: gross Qualified Code(s): R31.0 - Gross hematuria (2) UTI (urinary tract infection) Current Visit: Yes Status: Acute Assessment and plan: Await urine culture results. He is currently on ceftriaxone and linezolid. Management of his chronic UTI will be difficult given his chronic colonization. Qualifiers: Urinary tract infection type: acute cystitis Hematuria presence: with hematuria Qualified Code(s): N30.01 - Acute cystitis with hematuria (3) Hydronephrosis Current Visit: Yes Status: Acute Assessment and plan: He has right-sided hydroureteronephrosis. This may be due to poor compliance of his bladder and reflux. His renal function is remaining stable. He is making good urine output. I recommend observation at this time. He does not require stent placement.. Qualifiers: Qualified Code(s): N13.30 - Unspecified hydronephrosis Urology CN:HPI Consult date: 04/12/18 Reason for consult Urology: Other (hematuria) History of present illness: 68-year-old man presents with a history of hematuria and headaches. He is well- known to the urology service. He has a history of spinal cord injury and typically follows with Dr. Alfaro. He has an indwelling Ulloa catheter and has had chronic urinary tract infections. He was recently on Ellik was which led to hematuria and this was stopped. Over the last day he reported worsening hematuria and headaches. He came to the emergency department. A CT scan was obtained which showed evidence of right hydronephrosis as well as a good position to the Ulloa catheter. He has previously had a left nephrectomy. His renal function has remained stable and he continues to have good urine output. His catheter was irrigated. He was admitted for IV antibiotic and management. Today, his urine has a small amount of blood in it, but the tubing is mostly clear. He has some incontinence around his catheter. Past Med Surg Social Fam HX - Past Medical History Medical history: cancer, CHF, COPD Additional medical history: Paraplegic. kidney cancer Psychiatric history: no psych history - Past Surgical History Surgical History: cancer surgery, cholecystectomy, colostomy, pacemaker/AICD, other Additional surgical history: colostomy,left nephrectomy, chronic catheter. wound surgery - Social History Smoking Status: Never smoker Smokeless Tobacco Status: No Alcohol use: none Drug use: none - Family History Mother Name: janice Living Status: Father Name: Roc Garrido Family Member Ethnicity: Non- Living Status: Age at : 57 Hx Family Cardiac Disorders: No Hx Family Respiratory Disorders: No Hx Family Cancer: Yes Hx Family GI Disorders: No Hx Family Endocrine Disorder: Yes Hx Family Neuromuscular Disorders: No Hx Family Neurologic Disorders: Yes Hx Family HEENT Disorders: No Hx Family Autoimmune Disorders: No Brother Hx Family GI Disorders: Yes Medications and Allergies Aspirin Enteric Coated [Aspirin EC] 81 mg PO HS 05/25/15 [History] Dantrolene Sodium 100 mg PO TID 05/30/16 [History] traZODone [TraZODone] 50 mg PO HS 11/30/16 [History] Ascorbate Calcium [Vitamin C] 500 mg PO DAILY 01/15/17 [History] Multivit-Min/FA/Lycopen/Lutein [Adults 50+ Multivitamin Tablet] 1 each PO DAILY 01/15/17 [History] Acidophilus Lactobacilli 02/03/18 [History] Fluticasone Propionate Nasal [Flonase] 02/03/18 [History] Furosemide [Lasix] 20 mg PO 04/12/18 [History] 3 Allergy/AdvReac Type Severity Reaction Status Date / Time latex Allergy Rash Verified 04/11/18 22:23 Sulfa (Sulfonamide Allergy Difficulty Verified 11/30/16 13:00 Antibiotics) Breathing Review of Systems - Constitutional no chills, no fever(s) - EENT Nose, mouth and throat: headache(s), no dizziness - Cardiovascular no chest pain - Respiratory no dyspnea - Gastrointestinal no nausea, no vomiting - Genitourinary hematuria, no flank pain - Musculoskeletal no back pain - Integumentary no erythema, no rash - Neurological as per HPI, weakness - Psychiatric no suicidal ideation - Hematologic/Lymphatic easy bleeding - Allergic/Immunologic no wheezing Exam Initial Vital Signs Temp Pulse Resp BP Pulse Ox 98.0 F 86 16 91/71 94 04/11/18 22:14 04/11/18 22:14 04/11/18 22:14 04/11/18 22:14 04/11/18 22:14 - General physical appearance Present: well developed, well nourished, no distress - Eyes Absent: icteric - ENT Present: normal nares - Neck Present: trachea midline - Respiratory Present: normal respiratory effort - Cardiovascular Cardiovascular exam IM: RRR - Abdomen Abdomen: Present: soft - Genitourinary other ([address] [place] [address] Catheter irrigates only a small amount, and there is leakage around it. Minimal blood in tubing.) Urology Results - Labs 04/12/18 06:01 04/12/18 06:01 Abnormal lab results RDW 17.2 % (11.5-14.5) H 04/12/18 06:01 PT 13.6 Seconds (9.4-12.1) H 04/11/18 23:22 VBG pCO2 35 mmHg (41-51) L 04/11/18 23:32 VBG pO2 105 mmHg (25-50) H 04/11/18 23:32 Chloride 109 mEq/L (98-107) H 04/12/18 06:01 BUN/Creatinine Ratio 29 (6-26) H 04/12/18 06:01 Calcium 8.5 mg/dL (8.6-10.3) L 04/12/18 06:01 Ur Specimen Adequacy See below A 04/12/18 00:40 Urine Color Red (Yellow) A 04/12/18 00:40 Urine Clarity Turbid (Clear) A 04/12/18 00:40 Urine Protein >=1000 mg/dL (Neg-Trace) H 04/12/18 00:40 Urine Blood Large (Negative) H 04/12/18 00:40 Urine Nitrite Positive (Negative) A 04/12/18 00:40 Ur Leukocyte Esterase Large (Negative) H 04/12/18 00:40 Ur Culture Indicated? YES (NO) A 04/12/18 00:40 Diabetes panel 04/12/18 Range/Units 06:01 Sodium 140 (136-145) mEq/L Potassium 3.8 (3.5-5.1) mEq/L Chloride 109 H (98-107) mEq/L Carbon Dioxide 23 (23-29) mEq/L BUN 23 (8-23) mg/dL Creatinine 0.80 (0.70-1.30) mg/dL Glucose 100 (70-105) mg/dL Calcium 8.5 L (8.6-10.3) mg/dL Calcium panel 04/12/18 Range/Units 06:01 Calcium 8.5 L (8.6-10.3) mg/dL Pituitary panel 04/12/18 Range/Units 06:01 Sodium 140 (136-145) mEq/L Potassium 3.8 (3.5-5.1) mEq/L Chloride 109 H (98-107) mEq/L Carbon Dioxide 23 (23-29) mEq/L BUN 23 (8-23) mg/dL Creatinine 0.80 (0.70-1.30) mg/dL Glucose 100 (70-105) mg/dL Calcium 8.5 L (8.6-10.3) mg/dL Adrenal panel 04/12/18 Range/Units 06:01 Sodium 140 (136-145) mEq/L Potassium 3.8 (3.5-5.1) mEq/L Chloride 109 H (98-107) mEq/L Carbon Dioxide 23 (23-29) mEq/L BUN 23 (8-23) mg/dL Creatinine 0.80 (0.70-1.30) mg/dL Glucose 100 (70-105) mg/dL Calcium 8.5 L (8.6-10.3) mg/dL All other labs normal. - Imaging CT scan - abdomen: report reviewed, image reviewed CT scan - pelvis: report reviewed, image reviewed Consult Discharge Plan - Plan Referrals: Patrice Tejeda MD [Primary Care Provider] -
--- NOTE | 2018-04-12 18:22 | Event Note ---
Date of Encounter: 04/12/18 Time of Encounter: 14:16 Patient has no complaints currently. Headache resolved. Denies fevers/chills, n/v. VS: Reviewed Physical exam: gen NAD, AAOx3. CVS: RRR, Lungs: CTAB, ext: no edema A/P: 1. Hydronephrosis 2. Hematuria 3. Chronic UTI 4. Headache 5. Chronic indwelling rasheed catheter 6. Atrial fibrillation 7. Paraplegia following spinal injury 8. morbid obesity - Continue antibiotics - Urology following, recommendations appreciated - Follow- up cultures, will be best benefit to obtain culture to aid in treatment.
[2018-04-12] MEDS: traZODone 50 MG TABLET PO SCH (21:25)
[2018-04-13] MEDS: cefTRIAXone 1,000 MG in Water for inj. (sterile) 20 ML 10 ML IVP SCH ×2 (02:00→08:20)
[2018-04-13 05:27] LABS: BUN/Creatinine Ratio 21 (6-26); Blood Urea Nitrogen 16 mg/dL (8-23); Calcium 8.4 mg/dL (8.6-10.3); Carbon Dioxide 23 mEq/L (23-29); Chloride 110 mEq/L (98-107); Glucose 75 mg/dL (70-105); Osmolality,Calculated 288 (280-300); Sodium 139 mEq/L (136-145); eGFR For African Americans > 60 (> 60); eGFR For Non-African Americans > 60 (> 60)
[2018-04-13] MEDS ORDERED: Ondansetron 4 MG/2 ML VIAL IVP PRN (11:14)
--- NOTE | 2018-04-13 16:15 | Internal Med Progress Note ---
Date of Encounter: 04/13/18 Time of Encounter: 16:13 - Assessment and plan (1) Chronic UTI Current Visit: No Status: Acute Assessment and plan: He has had chronic UTI since January 2018 for which he has failed out treatment therapy. He has a chronic indwelling catheter which is likely contributing. -Urinalysis demonstrated positive leukocyte esterase, nitrite, blood -afebrile, WBC WNL, lactic acid 1.5 plan -continue IV linezolid due to past urine culture 02/21/2018 positive for VRE. Will de-escalate antibiotics as able. -continue IV Rocephin -urine culture pending (2) Chronic indwelling Ulloa catheter Current Visit: No Status: Acute Assessment and plan: Chronic indwelling catheter due to paraplegia (3) Paraplegia following spinal cord injury Current Visit: No Status: Chronic (4) Morbid obesity with BMI of 40.0-44.9, adult Current Visit: No Status: Chronic (5) Atrial fibrillation Current Visit: No Status: Chronic Assessment and plan: History of atrial fibrillation not taking rate limiting medication. He stopped taking his Eliquis for 2 weeks now since noticing the hematuria -hold eliquis Qualifiers: Atrial fibrillation type: chronic Qualified Code(s): I48.2 - Chronic atrial fibrillation (6) Hydronephrosis Current Visit: Yes Status: Acute Assessment and plan: Abdominal CT showed mild right hydronephrosis and hydroureter with obstruction at UVJ that may be due to stricture, bladder wall hypertrophy, outflow obstruction, tumor. -Urinalysis indicated UTI with positive leukocyte esterase, nitrite, blood -Urology consulted and will evaluate patient in a.m. -continue chronic indwelling Luloa catheter Qualifiers: Qualified Code(s): N13.30 - Unspecified hydronephrosis (7) DVT prophylaxis Current Visit: Yes Status: Acute Assessment and plan: SCD (8) Head ache Current Visit: Yes Status: Acute Assessment and plan: Most likely headache vs migraine. He has had "splitting" headaches on his forehead for the past week and a half since he started noticing the hematuria. He notices increase in headaches when the Ulloa calf gets clogged and an improvement of symptoms when the Ulloa catheter is flushed and blood is taken out of it. No nuchal rigidity, fever, chills, loss of vision. -Head CT negative for intracranial abnormality -he reports headache has improved since flushing of the catheter -Tylenol as needed -continue to monitor Qualifiers: Headache type: primary stabbing headache Qualified Code(s): G44.85 - Primary stabbing headache (9) Hematuria Current Visit: Yes Status: Acute Assessment and plan: This is likely secondary to anticoagulation with eliquis for the patient's atrial fibrillation. He stopped taking his eliquis 2 weeks ago when hematuria started per recommendation of his urologist Dr. Alfaro. -Urinalysis demonstrated gross hematuria -hold eliquis Qualifiers: Hematuria type: gross Qualified Code(s): R31.0 - Gross hematuria (10) Colostomy in place Current Visit: Yes Status: Acute Assessment and plan: chronic (11) Decubitus ulcer of ischial area Current Visit: Yes Status: Acute Assessment and plan: wound vac in place over ischial decubitus ulcer. -consult wound care Qualifiers: Qualified Code(s): L89.309 - Pressure ulcer of unspecified buttock, unspecified stage - Time Spent With Patient Total time spent is greater than 50% in coordination of care (as documented) at patient's floor/unit and/or counseling patient: - Subjective Interval history: Patient had SBP in 180s earlier, now was running 82/59 with HR 81. Now is back within normal limits. He denies chest pain, fevers/chills, n/v. - Constitutional Vitals: Temp Pulse Resp BP Pulse Ox 97.9 F 81 16 108/77 94 04/13/18 15:03 04/13/18 15:03 04/13/18 15:03 04/13/18 16:03 04/13/18 15:03 General appearance: Present: A&O X 3, pleasant, no acute distress Exam: - Head Head exam: Present: atraumatic, normal inspection - Respiratory Respiratory exam: Present: CTAB. Absent: rales, rhonchi - Cardiovascular Cardiovascular exam: Present: irregular rhythm. Absent: systolic murmur - GI/Abdominal GI/Abdominal exam: Present: normal bowel sounds, soft. Absent: guarding, rigid , tenderness Additional comments: Colostomy bag in place - Extremities Exam Extremities exam: Present: pedal edema. Absent: cyanotic, tenderness - Neurological Exam Neurological exam: Present: alert, oriented X3 - Psychiatric Psychiatric exam: Present: normal affect, normal mood - Skin Additional comments: Wound VAC in place over right buttocks Internal Medicine: Result - Labs CBC & Chem 7: 04/12/18 06:01 04/13/18 04:04 Labs: BMP 04/13/18 04:04 Sodium 139 Potassium 4.0 Chloride 110 H Carbon Dioxide 23 BUN 16 Creatinine 0.75 Glucose 75 Calcium 8.4 L - ABG Interpretation ABG results: PT/INR, D-dimer PT 13.6 Seconds (9.4-12.1) H 04/11/18 23:22 - VTE Documentation of Mechanical Device: Intermittent pneumatic compression device Consult Discharge Plan - Plan Referrals: Patrice Tejeda MD [Primary Care Provider] -
[2018-04-13] MEDS: traZODone 50 MG TABLET PO SCH (21:41)
--- NOTE | 2018-04-14 06:50 | Urology Progress Note ---
Date of Encounter: 04/13/18 Time of Encounter: 08:30 - Assessment and Plan (1) Hematuria Current Visit: Yes Status: Acute Assessment and plan: Resolved at this time. Will monitor. Qualifiers: Hematuria type: gross Qualified Code(s): R31.0 - Gross hematuria (2) UTI (urinary tract infection) Current Visit: Yes Status: Acute Assessment and plan: Await culture results. Qualifiers: Urinary tract infection type: acute cystitis Hematuria presence: with hematuria Qualified Code(s): N30.01 - Acute cystitis with hematuria (3) Hydronephrosis Current Visit: Yes Status: Acute Assessment and plan: Urine output is good. Creatinine is stable. Will monitor. Qualifiers: Qualified Code(s): N13.30 - Unspecified hydronephrosis Progress Note Narrative: Doing well. Urine is clear. He is noting some nausea. Mild incontinence around catheter at times. Objective Initial Vital Signs Temp Pulse Resp BP Pulse Ox 98.0 F 86 16 91/71 94 04/11/18 22:14 04/11/18 22:14 04/11/18 22:14 04/11/18 22:14 04/11/18 22:14 - General physical appearance Present: well developed, well nourished, no distress - Respiratory Present: normal respiratory effort - Abdomen Present: soft - Genitourinary Urine Appearance: Present: Clear - Labs 04/12/18 06:01 04/13/18 04:04 - VTE Documentation of Mechanical Device: Intermittent pneumatic compression device Consult Discharge Plan - Plan Referrals: Patrice Tejeda MD [Primary Care Provider] -
[2018-04-14 07:28] LABS: BUN/Creatinine Ratio 19 (6-26); Blood Urea Nitrogen 15 mg/dL (8-23); Calcium 8.4 mg/dL (8.6-10.3); Carbon Dioxide 23 mEq/L (23-29); Chloride 109 mEq/L (98-107); Glucose 96 mg/dL (70-105); Osmolality,Calculated 289 (280-300); Potassium 3.8 mEq/L (3.5-5.1); Sodium 139 mEq/L (136-145); eGFR For African Americans > 60 (> 60); eGFR For Non-African Americans > 60 (> 60)
[2018-04-14] MEDS ORDERED: Aspirin Enteric Coated 81 MG Tablet PO SCH (09:00)
[2018-04-14] MEDS ORDERED: Loratadine 10 MG TABLET PO SCH (09:00)
[2018-04-14] MEDS ORDERED: Furosemide 20 MG TABLET PO SCH (09:00)
[2018-04-14] MEDS ORDERED: Ascorbic Acid 500 MG TABLET PO SCH (09:00)
--- NOTE | 2018-04-14 09:35 | Internal Med Progress Note ---
Date of Encounter: 04/14/18 Time of Encounter: 09:15 - Assessment and plan (1) Chronic UTI Current Visit: Yes Status: Acute Assessment and plan: Pt has had multiple attempts at outpt tx for UTI. Has had a UTI since 01/22. Chonic indwelling catheter at this time shows no erythema or s/s of infxn however it is most likely contributing to the uti. UA (+) for leukocyte esterase, blood, nitrite, protein >1000 Pt is afrebile. 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 Pt is on IV rocephin. Urine cx pending. (2) Hematuria Current Visit: Yes Status: Acute Assessment and plan: Most likely due to the anticoagulation with eliquis. Eliquis held for the last 2 wks as per urologist. UA was (+) for blood. Eliquis held. Qualifiers: Hematuria type: gross Qualified Code(s): R31.0 - Gross hematuria (3) Hydronephrosis Current Visit: Yes Status: Acute Assessment and plan: Abdominal CT showed mild right hydronephrosis and hydroureter with obstruction at UVJ that may be due to stricture, bladder wall hypertrophy, outflow obstruction, tumor. -Urinalysis indicated UTI with positive leukocyte esterase, nitrite, blood -Urology consulted -continue chronic indwelling Ulloa catheter likely contributig to the chronic UTI Qualifiers: Qualified Code(s): N13.30 - Unspecified hydronephrosis (4) Chronic indwelling Ulloa catheter Current Visit: No Status: Chronic Assessment and plan: Chronic indwelling catheter due to paraplegia . No s/s of infxn at this time but may be contributing to chronic UTI (5) Paraplegia following spinal cord injury Current Visit: No Status: Chronic Assessment and plan: Pt has no sensation from nipple area down. (6) Morbid obesity with BMI of 40.0-44.9, adult Current Visit: No Status: Chronic Assessment and plan: Encourage low fat, low cholesterol diet. (7) Atrial fibrillation Current Visit: No Status: Chronic Assessment and plan: Not on rate control rx. His eliquis was held due to the hematuria he noticed. Continue to hold eliquis. Qualifiers: Atrial fibrillation type: chronic Qualified Code(s): I48.2 - Chronic atrial fibrillation (8) DVT prophylaxis Current Visit: Yes Status: Acute Assessment and plan: SCD . Hold anticoag because of hematuria. (9) Head ache Current Visit: Yes Status: Resolved Assessment and plan: Tylonal prn. Continue to monitor s/s of headache. He had a headache when he started noticing the hematuria. He says his headache has improved and that he currently doesn't have one. Denies any neck pain, fever, vision changes, chills. No nuchal rigifity. CT negative for intracranial abnormality Qualifiers: Headache type: primary stabbing headache Qualified Code(s): G44.85 - Primary stabbing headache (10) Colostomy in place Current Visit: No Status: Chronic Assessment and plan: Chronic issue. Continue to montior for erythema or infxn. (11) Decubitus ulcer of ischial area Current Visit: No Status: Chronic Assessment and plan: wound vac in place over ischial decubitus ulcer. -consult wound care Qualifiers: Pressure injury stage: unspecified pressure injury stage Laterality: left Qualified Code(s): L89.329 - Pressure ulcer of left buttock, unspecified stage - Time Spent With Patient Total time spent is greater than 50% in coordination of care (as documented) at patient's floor/unit and/or counseling patient: 25 - 35 minutes - Subjective Interval history: Pt is seen at bedside. He was admitted 2/2 chronic UTI that was resistant to tx. He is currently on Linezolid and rocephin IV day 2. He has no new complaints. He is a paraplegic from the nipple area down. He denies any pain, CP , SOB, N/V/D. He denies any headache at this time, states that since catheter was changed he has been headache free. - Constitutional Vitals: Temp Pulse Resp BP Pulse Ox 97.6 F 68 16 93/63 94 04/14/18 07:11 04/14/18 07:11 04/14/18 07:11 04/14/18 07:11 04/14/18 07:11 General appearance: Present: A&O X 3, pleasant, no acute distress, obese - Head Head exam: Present: atraumatic, normal inspection - Neck Neck exam general surgery: Present: supple - Respiratory Respiratory exam: Present: decreased breath sounds Additional comments: decreased breath sounds 2/2 body habitus - Cardiovascular Cardiovascular exam: Present: RRR, +S1, +S2 - GI/Abdominal GI/Abdominal exam: Present: soft, no peritoneal signs Additional comments: obese abdomen makes exam difficult , cannot palpate any masses - Additional comments: no signs of erythema around the catheter - Extremities Exam Extremities exam: Present: normal capillary refill Additional comments: cannot perform strength testing due to paraplegia - Neurological Exam Neurological exam: Present: altered, oriented X3 - Skin Skin exam: Present: intact Additional comments: wound vac on left sided pressure ulcer Internal Medicine: Result - Labs CBC & Chem 7: 04/12/18 06:01 04/14/18 06:53 Labs: BMP 04/14/18 06:53 Sodium 139 Potassium 3.8 Chloride 109 H Carbon Dioxide 23 BUN 15 Creatinine 0.81 Glucose 96 Calcium 8.4 L - ABG Interpretation ABG results: PT/INR, D-dimer PT 13.6 Seconds (9.4-12.1) H 04/11/18 23:22 - VTE Documentation of Mechanical Device: Intermittent pneumatic compression device Consult Discharge Plan - Plan Referrals: Saroj Munoz DO [Partnered Physician] - 04/23/18 11:30 am Patrice Tejeda MD [Primary Care Provider] - 04/28/18 2:00 pm Tomas Del Angel MD [Partnered Physician] - 05/27/18 1:45 pm
[2018-04-14] MEDS: cefTRIAXone 1,000 MG in Water for inj. (sterile) 20 ML 10 ML IVP SCH (10:04)
[2018-04-14 11:22] VITALS: BP 92/58
--- NOTE | 2018-04-14 13:40 | Discharge Summary ---
<Andrei Odell S - Last Filed: 04/14/18 14:02> - NOTES TO OUTPATIENT PROVIDER Notes to Outpatient Provider: Pt has hx of chronic UTI most likely secondary to chronic indwelling catheter, he was admitted for hematuria and multiple failed outpt tx. Pt is to be on outpt IV rocephin and Linezolid. Hematuria resolves after eliquis d/c. This needs to be evaluated outpt to determine if Eliquis can be restarted. Orders not resulted at time of discharge: Pending orders 04/14/18 10:32 Culture,Urine [RM] Routine 04/15/18 04:00 BMP [Basic Metabolic Panel] AM 0400 Complete Blood Count [HEME] AM 0400 Date of Encounter: 04/14/18 Time of Encounter: 13:37 - Discharge Diagnosis (1) Chronic UTI Priority: Primary Status: Chronic Assessment and Plan: Pt has had multiple attempts at outpt tx for UTI. Has had a UTI since 01/22. Chonic indwelling catheter at this time shows no erythema or s/s of infxn however it is most likely contributing to the uti. UA (+) for leukocyte esterase, blood, nitrite, protein >1000 Pt is afrebile. 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 Pt is on IV rocephin. Pt to be tx at home with rocephin and Linezolid (2) Hematuria Priority: Primary Status: Resolved Assessment and Plan: Most likely due to the anticoagulation with eliquis. Eliquis held for the last 2 wks as per urologist. UA was (+) for blood. Eliquis held. Follow up outpatient basis to determine if eliquis should be restarted Qualifiers: Hematuria type: gross Qualified Code(s): R31.0 - Gross hematuria (3) Hydronephrosis Priority: Primary Status: Resolved Assessment and Plan: Abdominal CT showed mild right hydronephrosis and hydroureter with obstruction at UVJ that may be due to stricture, bladder wall hypertrophy, outflow obstruction, tumor. -Urinalysis indicated UTI with positive leukocyte esterase, nitrite, blood -Urology consulted -continue chronic indwelling Ulloa catheter likely contributig to the chronic UTI Resolving as per second renal study (4) Chronic indwelling Ulloa catheter Priority: Secondary Status: Chronic Assessment and Plan: Chronic indwelling catheter due to paraplegia . 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 (6) Morbid obesity with BMI of 40.0-44.9, adult Priority: Secondary Status: Chronic Assessment and Plan: Encourage low fat, low cholesterol diet. (7) Atrial fibrillation Priority: Secondary Status: Chronic Assessment and Plan: Not on rate control rx. His eliquis was held due to the hematuria he noticed. Continue to hold eliquis. Pt should be worked up on outpatient basis for eliquis to be restaretd Qualifiers: Atrial fibrillation type: chronic Qualified Code(s): I48.2 - Chronic atrial fibrillation (8) DVT prophylaxis Priority: Secondary Status: Acute Assessment and Plan: SCD . Hold anticoag because of hematuria. (9) Head ache Priority: Secondary Status: Resolved Assessment and Plan: Tylonal prn. Continue to monitor s/s of headache. He had a headache when he started noticing the hematuria. He says his headache has improved and that he currently doesn't have one. Denies any neck pain, fever, vision changes, chills. No nuchal rigifity. CT negative for intracranial abnormality Qualifiers: Headache type: primary stabbing headache Qualified Code(s): G44.85 - Primary stabbing headache (10) Colostomy in place Priority: Secondary Status: Chronic Assessment and Plan: Chronic issue. Continue to montior for erythema or infxn. (11) Decubitus ulcer of ischial area Priority: Secondary Status: Chronic Assessment and Plan: wound vac in place over ischial decubitus ulcer. -consult wound care Qualifiers: Pressure injury stage: unspecified pressure injury stage Laterality: left Qualified Code(s): L89.329 - Pressure ulcer of left buttock, unspecified stage Hospital course: Mr. Garrido is a 68 year old male who was admitted for chronic UTI with multiple failed outpt abx therapies. He had hematuria that was discontinued 2 weeks ago 2 /2 hematuria noticed in the urine, hematuria has since resolved. He also had c/ o headache, which have also resolved. There was hydronephrosis seen on CT scan, which has also resolved. Pt to be d/c on Linzeolid and Rocephin. Trazodone discontinued because of possible serotonin syndrome as an adverse affect and given hydroxyzine for prn insomnia. Pt to have home health and is encouraged to eat a low fat low cholesterol diet. Discharge discussed with: patient Time spent discussing smoking cessation with patient: 3 to 10 minutes - Time Spent with Patient Total time spent providing and/or coordinating discharge services: Less than 30 minutes - Discharge Medications Prescriptions: HydrOXYzine 10 mg PO HS 10 Days #10 tablet Ondansetron [Zuplenz] 4 mg PO 1-2XD PRN 10 Days #10 tab PRN Reason: Nausea Home Medications: Ascorbate Calcium [Vitamin C] 500 mg PO DAILY 04/12/18 [History] Aspirin [Lo-Dose Aspirin EC] 81 mg PO DAILY 04/12/18 [History] Cetirizine HCl [Zyrtec] 10 mg PO DAILY 04/12/18 [History] Furosemide [Lasix] 20 mg PO DAILY 04/12/18 [History] Linezolid [Zyvox] 600 mg PO BID 04/12/18 [History] HydrOXYzine 10 mg PO HS 10 Days #10 tablet 04/14/18 [Rx] Ondansetron [Zuplenz] 4 mg PO 1-2XD PRN 10 Days #10 tab 04/14/18 [Rx] hydrALAZINE [HydrALAZINE] 10 mg IVP Q6H PRN vial 04/14/18 [Rx] Allergies/Adverse Reactions: 3 Allergy/AdvReac Type Severity Reaction Status Date / Time latex Allergy Rash Verified 04/11/18 22:23 Sulfa (Sulfonamide Allergy Difficulty Verified 11/30/16 13:00 Antibiotics) Breathing Date of admission: 04/12/18 02:46 Primary care physician: Patrice Tejeda MD Consults: 04/12/18 03:54 Consult to Urology [CONS] Routine Consulting Provider: Urology Mady Reason for Consult: right hydronephrosis and hydroureter with obstruction at UVJ. no calculus. ED called already Call Completed: Yes Consult to Wound Care [CONS] Routine Reason for Consult: wound vac on right buttock Call Completed: No 04/12/18 05:27 Consult to [employer] Worker [CONS] Routine Reason for SW Consult: may need home health care for wound - Constitutional Vitals: Temp Pulse Resp BP Pulse Ox 97.5 F L 89 16 92/58 95 04/14/18 11:21 04/14/18 11:21 04/14/18 11:21 04/14/18 11:21 04/14/18 11:21 General appearance: Present: A&O X 3, pleasant, no acute distress, obese - Head Head exam: Present: atraumatic, normal inspection - Neck Neck exam general surgery: Present: supple - Respiratory Respiratory exam: Present: decreased breath sounds Additional comments: secondary to body habitus - Cardiovascular Cardiovascular exam: Present: irregular rhythm - GI/Abdominal GI/Abdominal exam: Present: soft, no peritoneal signs - Neurological Exam Neurological exam: Present: no focal deficits - Skin Additional comments: wound vac on left sided sacral decubitus ulcer - Patient Status Disposition: Home Health Service Condition: Good Functional capacity at discharge: bed bound Overall status at discharge: patient is progressing back to baseline - Discharge Instructions Follow Up With: Saroj Munoz DO [Partnered Physician] - 04/23/18 11:30 am Patrice Tejeda MD [Primary Care Provider] - 04/28/18 2:00 pm Tomas Del Angel MD [Partnered Physician] - 05/27/18 1:45 pm - Diet and Activity Activity: other Diet: low fat, low cholesterol, low salt diet - VTE Documentation of Mechanical Device: Intermittent pneumatic compression device <Naz Ryan - Last Filed: 04/14/18 18:08> Orders not resulted at time of discharge: Pending orders 04/14/18 10:32 Culture,Urine [RM] Routine Date of Encounter: 04/14/18 - Discharge Diagnosis (1) Chronic indwelling Ulloa catheter Status: Chronic (2) Chronic UTI Status: Chronic (3) Paraplegia following spinal cord injury Status: Chronic (4) Morbid obesity with BMI of 40.0-44.9, adult Status: Chronic (5) Atrial fibrillation Status: Chronic Qualifiers: Atrial fibrillation type: chronic Qualified Code(s): I48.2 - Chronic atrial fibrillation (6) Hydronephrosis Status: Resolved Qualifiers: Qualified Code(s): N13.30 - Unspecified hydronephrosis (7) DVT prophylaxis Status: Acute (8) Head ache Status: Resolved Qualifiers: Headache type: primary stabbing headache Qualified Code(s): G44.85 - Primary stabbing headache (9) Hematuria Status: Resolved Qualifiers: Hematuria type: gross Qualified Code(s): R31.0 - Gross hematuria (10) Colostomy in place Status: Chronic (11) Decubitus ulcer of ischial area Status: Chronic Qualifiers: Pressure injury stage: unspecified pressure injury stage Laterality: left Qualified Code(s): L89.329 - Pressure ulcer of left buttock, unspecified stage Hospital course: Mr. Garrido is a 68 year old male - Time Spent with Patient Total time spent providing and/or coordinating discharge services: Date of admission: 04/12/18 02:46 Primary care physician: Patrice Tejeda MD Consults: 04/12/18 03:54 Consult to Urology [CONS] Routine Consulting Provider: Urology Mady Reason for Consult: right hydronephrosis and hydroureter with obstruction at UVJ. no calculus. ED called already Call Completed: Yes Consult to Wound Care [CONS] Routine Reason for Consult: wound vac on right buttock Call Completed: No 04/12/18 05:27 Consult to [employer] Worker [CONS] Routine Reason for SW Consult: may need home health care for wound - Constitutional Vitals: Temp Pulse Resp BP Pulse Ox 97.5 F L 89 16 92/58 95 04/14/18 11:21 04/14/18 11:21 04/14/18 11:21 04/14/18 11:21 04/14/18 11:21 - Attending Attestation I examined this patient and my medical decision-making was reviewed with the Resident Physician. I agree with the documented findings, disposition and treatment plan as described except to the extent set forth below.
--- NOTE | 2018-04-14 13:59 | Physician Discharge Referral ---
Home Health/Hosp Referral Info Transfer to: Home Health Attending Provider: Dr. 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 For more information, call the [facility] Quit Line at 5-649-FZUY-NOW. - Diet/Nutrition Diet/Nutrition Orders: Cardiac - Activity Activity Orders: Bedrest - Services Needed Following services are medically necessary services: Home Health Aide - Transfer Medications Prescriptions: HydrOXYzine 10 mg PO HS 10 Days #10 tablet Ondansetron [Zuplenz] 4 mg PO 1-2XD PRN 10 Days #10 tab PRN Reason: Nausea Home Medications: Ascorbate Calcium [Vitamin C] 500 mg PO DAILY 04/12/18 [History] Aspirin [Lo-Dose Aspirin EC] 81 mg PO DAILY 04/12/18 [History] Cetirizine HCl [Zyrtec] 10 mg PO DAILY 04/12/18 [History] Furosemide [Lasix] 20 mg PO DAILY 04/12/18 [History] Linezolid [Zyvox] 600 mg PO BID 04/12/18 [History] HydrOXYzine 10 mg PO HS 10 Days #10 tablet 04/14/18 [Rx] Ondansetron [Zuplenz] 4 mg PO 1-2XD PRN 10 Days #10 tab 04/14/18 [Rx] hydrALAZINE [HydrALAZINE] 10 mg IVP Q6H PRN vial 04/14/18 [Rx] Allergies/Adverse Reactions: 3 Allergy/AdvReac Type Severity Reaction Status Date / Time latex Allergy Rash Verified 04/11/18 22:23 Sulfa (Sulfonamide Allergy Difficulty Verified 11/30/16 13:00 Antibiotics) Breathing Certification: Further, I certify that my clinical findings support that this patient is homebound (i.e. absences from home require considerable and taxing effort and are for medical reasons or [facility] services or infrequently or short duration when for other reasons) because: Homebound Reason: Patient requires assistance of a person or device to safely leave home Attestation: My signature below is to certify that this patient is under my care and that I, or nurse practitioner, or a physician's museum assistant working with me, has a face-to -face encounter with this patient.
== END 2018-04-14 15:46 | disposition home health service (06) ==
LOC: EMEROO 22:11 → 3BNU 22:11
PROVIDERS: ADMIT General Practice; ATTEND General Practice

== ENCOUNTER 2019-02-04 20:41 | Inpatient (IN) ==
--- NOTE | 2019-02-04 21:26 | Emergency Department Note ---
Disposition Clinical Impression: Cellulitis of scrotum, Paraplegia following spinal cord injury, Chronic indwelling Ulloa catheter Disposition: Admitted As Inpatient General Adult HPI - General Chief complaint: ED General Medical Stated complaint: scrotal problem Time Seen by Provider: 02/04/19 20:48 Source: patient, EMS Limitations: no limitations - History of Present Illness Pain Scale: 10 - Related Data Home Medications Medication Instructions Recorded Confirmed Ascorbate Calcium [Vitamin C] 500 mg PO DAILY 04/12/18 04/12/18 Aspirin [Lo-Dose Aspirin EC] 81 mg PO DAILY 04/12/18 04/12/18 Cetirizine HCl [Zyrtec] 10 mg PO DAILY 04/12/18 04/12/18 Furosemide [Lasix] 20 mg PO DAILY 04/12/18 04/12/18 Previous Rx's Medication Instructions Recorded HydrOXYzine 10 mg PO HS 10 Days #10 tablet 04/14/18 Ondansetron [Zuplenz] 4 mg PO 1-2XD PRN 10 Days #10 tab 04/14/18 hydrALAZINE [HydrALAZINE] 10 mg IVP Q6H PRN vial 04/14/18 Allergies Allergy/AdvReac Type Severity Reaction Status Date / Time latex Allergy Rash Verified 04/11/18 22:23 Sulfa (Sulfonamide Allergy Difficulty Verified 11/30/16 13:00 Antibiotics) Breathing Past Medical History - Past Medical History Medical history: Reports: cancer, CHF, COPD Surgical history: Reports: cancer surgery, cholecystectomy, colostomy, pacemaker/AICD, other Psychiatric history: Reports: no psych history - Social History Smoking Status: Never smoker Smokeless Tobacco Status: No Alcohol use: Reports: none Drug use: Reports: none Physical Exam - General Limitations: no limitations General appearance: alert, in no apparent distress Course Vital Signs Temperature 98.7 F 02/04/19 20:46 Pulse Rate 76 02/04/19 20:46 Respiratory Rate 15 02/04/19 20:46 Blood Pressure 115/83 02/04/19 20:46 O2 Sat by Pulse Oximetry 94 02/04/19 20:46 Temperature 98.3 F 02/04/19 23:17 Pulse Rate 77 02/05/19 00:37 Respiratory Rate 18 02/05/19 00:37 Blood Pressure 123/76 02/05/19 00:37 O2 Sat by Pulse Oximetry 91 02/05/19 00:37 Oxygen Delivery Oxygen Delivery Room Air Medical Decision Making - Lab Data Result diagrams: 02/04/19 21:59 02/04/19 21:59 Lab Results 02/04/19 02/04/19 02/04/19 Range/Units 21:59 21:59 21:59 WBC 23.7 H (4.3-11.1) K/mcL RBC 4.03 L (4.19-5.50) M/mcL Hgb 11.9 L (12.9-16.9) g/dL Hct 37.8 (37.5-50.1) % MCV 93.8 (83.0-100.0) fL MCH 29.5 (28.0-33.3) pg MCHC 31.5 L (31.6-35.5) g/dL RDW 16.0 H (11.5-14.5) % Plt Count 132 L (140-400) K/mcL MPV 11.4 (9.4-12.4) fL Immature Gran % 0.9 (0-4) % Seg Neutrophils % 82.7 % Lymphocytes % 6.1 % Monocytes % 10.2 % Eosinophils % 0.0 % Basophils % 0.1 % Neutrophils # 19.6 H (1.6-8.9) K/mcL Lymphocytes # 1.4 (0.6-4.6) K/mcL Monocytes # 2.4 H (0.0-1.3) K/mcL Eosinophils # 0.0 (0.0-0.6) K/mcL Basophils # 0.0 (0.0-0.2) K/mcL Sodium 134 L (136-145) mEq/L Potassium 3.5 (3.5-5.1) mEq/L Chloride 97 L (98-107) mEq/L Carbon Dioxide 29 (23-29) mEq/L BUN 19 (8-23) mg/dL Creatinine 0.91 (0.70-1.30) mg/dL Est GFR ( Amer) > 60 (> 60) Est GFR (Non-Af Amer) > 60 (> 60) BUN/Creatinine Ratio 21 (6-26) Glucose 106 H (70-105) mg/dL Calculated Osmolality 281 (280-300) Lactic Acid 0.9 (0.5-2.2) mmol/L Calcium 8.8 (8.6-10.3) mg/dL Urine Color (Yellow) Urine Clarity (Clear) Urine pH (5.0-8.0) pH Units Ur Specific [place] (1.010-1.025) Urine Protein (Neg-Trace) mg/dL Urine Glucose (UA) (Normal) mg/dL Urine Ketones (Negative) mg/dL Urine Blood (Negative) Urine Nitrite (Negative) Urine Bilirubin (Negative) Urine Urobilinogen (Normal) mg/dL Ur Leukocyte Esterase (Negative) Urine Microscopic RBC (0-3) per hpf Urine Microscopic WBC (0-3) per hpf Ur Squamous Epith Cells (None-Few) per lpf Amorphous Sediment (Few) Urine Bacteria (None-Few) per hpf Hyaline Casts (None-Few) per lpf Ur Culture Indicated? (NO) 02/04/19 Range/Units 23:56 WBC (4.3-11.1) K/mcL RBC (4.19-5.50) M/mcL Hgb (12.9-16.9) g/dL Hct (37.5-50.1) % MCV (83.0-100.0) fL MCH (28.0-33.3) pg MCHC (31.6-35.5) g/dL RDW (11.5-14.5) % Plt Count (140-400) K/mcL MPV (9.4-12.4) fL Immature Gran % (0-4) % Seg Neutrophils % % Lymphocytes % % Monocytes % % Eosinophils % % Basophils % % Neutrophils # (1.6-8.9) K/mcL Lymphocytes # (0.6-4.6) K/mcL Monocytes # (0.0-1.3) K/mcL Eosinophils # (0.0-0.6) K/mcL Basophils # (0.0-0.2) K/mcL Sodium (136-145) mEq/L Potassium (3.5-5.1) mEq/L Chloride (98-107) mEq/L Carbon Dioxide (23-29) mEq/L BUN (8-23) mg/dL Creatinine (0.70-1.30) mg/dL Est GFR ( Amer) (> 60) Est GFR (Non-Af Amer) (> 60) BUN/Creatinine Ratio (6-26) Glucose (70-105) mg/dL Calculated Osmolality (280-300) Lactic Acid (0.5-2.2) mmol/L Calcium (8.6-10.3) mg/dL Urine Color Yellow (Yellow) Urine Clarity Turbid A (Clear) Urine pH 6.5 (5.0-8.0) pH Units Ur Specific [place] < 1.005 L (1.010-1.025) Urine Protein 30 H (Neg-Trace) mg/dL Urine Glucose (UA) Normal (Normal) mg/dL Urine Ketones Negative (Negative) mg/dL Urine Blood Small H (Negative) Urine Nitrite Negative (Negative) Urine Bilirubin Negative (Negative) Urine Urobilinogen Normal (Normal) mg/dL Ur Leukocyte Esterase Large H (Negative) Urine Microscopic RBC 0-3 (0-3) per hpf Urine Microscopic WBC TNTC H (0-3) per hpf Ur Squamous Epith Cells Many H (None-Few) per lpf Amorphous Sediment Few (Few) Urine Bacteria Many H (None-Few) per hpf Hyaline Casts None Seen (None-Few) per lpf Ur Culture Indicated? YES A (NO) Critical Care Time Critical Care Time: Yes Total Critical Care Time: 30 Attestation: The high probability of a clinically significant, sudden or life threatening deterioration of the [] system(s) required my full and direct attention, intervention and personal management. The aggregate critical care time was [] minutes. This time is in addition to time spent performing reported procedures but includes the following: [] Data Review and interpretation [] Patient assessment and monitoring of vital signs [] Documentation [] Medication orders and management Attestation Statement - Attestation Attestation: I reviewed the residents documentation and agree with the residents assessment and plan of care. I have personally had face to face time with the patient. (Brief History, Brief Exam, and MDM) I personally supervised and was present for the rushing/critical portions of the following procedures completed by the resident: (add procedures performed here). [id number] time provided Patient arrives by EMS. He has a history of paraplegia. Concern for fever and scrotal swelling. Case discussed by me with the resident physician
--- NOTE | 2019-02-04 21:45 | Emergency Department Note ---
Disposition Clinical Impression: Cellulitis of scrotum, Paraplegia following spinal cord injury, Chronic indwelling Ulloa catheter Disposition: Admitted As Inpatient General Adult HPI - General Chief complaint: ED General Medical Stated complaint: scrotal problem Time Seen by Provider: 02/04/19 20:48 Source: patient, EMS Limitations: no limitations Nursing Notes Reviewed: Yes Vital Signs Reviewed: Yes - History of Present Illness HPI Narrative: 68-year-old male with history of paraplegic from T7 who presents the emergency department with complaints of scrotal swelling and fever. The patient has reportedly had this problem before and been treated with Lasix but over the last 2 days it has become increasingly red, warm and significantly more swollen than previously. He otherwise had a fever up to 100.2. He has had no vomiting, chest pain, shortness of breath. There is been no changes in his urination though he does have an indwelling Ulloa catheter. History is limited given the patient has no sensation below the nipples. Pain Scale: 10 - Related Data Home Medications Medication Instructions Recorded Confirmed Ascorbate Calcium [Vitamin C] 500 mg PO DAILY 04/12/18 04/12/18 Aspirin [Lo-Dose Aspirin EC] 81 mg PO DAILY 04/12/18 04/12/18 Cetirizine HCl [Zyrtec] 10 mg PO DAILY 04/12/18 04/12/18 Furosemide [Lasix] 20 mg PO DAILY 04/12/18 04/12/18 Previous Rx's Medication Instructions Recorded HydrOXYzine 10 mg PO HS 10 Days #10 tablet 04/14/18 Ondansetron [Zuplenz] 4 mg PO 1-2XD PRN 10 Days #10 tab 04/14/18 hydrALAZINE [HydrALAZINE] 10 mg IVP Q6H PRN vial 04/14/18 Allergies Allergy/AdvReac Type Severity Reaction Status Date / Time latex Allergy Rash Verified 04/11/18 22:23 Sulfa (Sulfonamide Allergy Difficulty Verified 11/30/16 13:00 Antibiotics) Breathing Review of Systems: ROS per history of present illness, all other systems reviewed and negative or normal. All systems ED: reviewed and negative except as stated. Review of Systems: As Per HPI Past Medical History - Past Medical History Medical history: Reports: cancer, CHF, COPD Surgical history: Reports: cancer surgery, cholecystectomy, colostomy, pacemaker/AICD, other Psychiatric history: Reports: no psych history - Social History Smoking Status: Never smoker Smokeless Tobacco Status: No Alcohol use: Reports: none Drug use: Reports: none Physical Exam General: Conversant. No apparent distress. Follow commands. Appears stated age. Obese Neck: No JVD. Trachea midline. Neck supple. Eyes: PERRL. No scleral icterus. HENT: Normocephalic and atraumatic. Moist mucus membranes. Cardiovascular: Regular rate and rhythm. Normal S1 and S2. No murmurs appreciated. Normal capillary refill. Extremities well perfused with 2+ distal pulses bilaterally. No edema. Pulmonary: Normal and equal breath sounds bilaterally, anteriorly and posteriorly. No wheezes, rales, or rhonchi. Not in respiratory distress. Speaks in full sentences. Abdomen: Soft, nondistended, and tontender. No bruits or masses. No guarding. Exam limited by body habitus. Neuro: Alert and oriented x3. No slurred speech. No focal deficits noted. Skin: No rashes noted on visualized skin. Musculoskeletal: Moves upper extremity without complaints, unable to move lower extremities due to paraplegia. Psych: Normal mood. Pleasant. Makes appropriate eye contact. - General Limitations: no limitations General appearance: alert, in no apparent distress Course - Consultations Consultation #1: Discussed case with Dr. Alfaro, urology who advises not to remove the catheter as he is a very difficult to obtain catheterization. He recommends sending the urine for culture regardless of urinalysis. He recommends broad-spectrum antibiotics and he will see the patient in consultation during admission. Time: 23:54 Vital Signs Temperature 98.7 F 02/04/19 20:46 Pulse Rate 76 02/04/19 20:46 Respiratory Rate 15 02/04/19 20:46 Blood Pressure 115/83 02/04/19 20:46 O2 Sat by Pulse Oximetry 94 02/04/19 20:46 Temperature 98.3 F 02/04/19 23:17 Pulse Rate 77 02/05/19 00:37 Respiratory Rate 18 02/05/19 00:37 Blood Pressure 123/76 02/05/19 00:37 O2 Sat by Pulse Oximetry 91 02/05/19 00:37 Oxygen Delivery Oxygen Delivery Room Air Medical Decision Making - [facility] Narrative Medical decision making narrative: 68 yo M with history of T7 paraplegia who presents to the emergency department for scrotal swelling/erythema and fever. Upon arrival he is not tachycardic, febrile. He is normotensive. The patient does have scrotal edema and that erythema concerning for cellulitis. Given he is a paraplegic we did obtain ultrasound Doppler to evaluate for torsion since he does not have sensation. Otherwise we obtained a septic evaluation including CBC, BMP, lactate, cultures and urine culture. The patient does have a significant leukocytosis of 23.7 without lactic acidosis. BMP appears proximally the patient's baseline without significant electrolyte abnormality. Chest x-ray shows questionable pneumonia but given that he does not feel short of breath do not believe this is in fact infectious. CT abdomen shows no evidence of kidney stone but does show evidence of hydrocele vs pyocele which is confirmed by scrotal ultrasound. I did contact urology, Dr. Alfaro who knows the patient very well and he advises us not to remove the Ulloa catheter as he is a very difficult to obtain patient. He recommends urinalysis and urine culture. We started the patient on vancomycin and Zosyn and obtained blood cultures. Discussed the case with on- call hospitalist, Dr. Dumont who agrees with plan for admission and accepts the patient on to the inpatient service. All the patient agrees with and understands the course of treatment plan including plan for admission. All questions answered. - Medical Records Medical records reviewed: Yes I reviewed the patient's medical records. - Lab Data Lab results reviewed: Yes I reviewed the patient's lab results. Result diagrams: 02/04/19 21:59 02/04/19 21:59 Lab Results 02/04/19 02/04/19 02/04/19 Range/Units 21:59 21:59 21:59 WBC 23.7 H (4.3-11.1) K/mcL RBC 4.03 L (4.19-5.50) M/mcL Hgb 11.9 L (12.9-16.9) g/dL Hct 37.8 (37.5-50.1) % MCV 93.8 (83.0-100.0) fL MCH 29.5 (28.0-33.3) pg MCHC 31.5 L (31.6-35.5) g/dL RDW 16.0 H (11.5-14.5) % Plt Count 132 L (140-400) K/mcL MPV 11.4 (9.4-12.4) fL Immature Gran % 0.9 (0-4) % Seg Neutrophils % 82.7 % Lymphocytes % 6.1 % Monocytes % 10.2 % Eosinophils % 0.0 % Basophils % 0.1 % Neutrophils # 19.6 H (1.6-8.9) K/mcL Lymphocytes # 1.4 (0.6-4.6) K/mcL Monocytes # 2.4 H (0.0-1.3) K/mcL Eosinophils # 0.0 (0.0-0.6) K/mcL Basophils # 0.0 (0.0-0.2) K/mcL Sodium 134 L (136-145) mEq/L Potassium 3.5 (3.5-5.1) mEq/L Chloride 97 L (98-107) mEq/L Carbon Dioxide 29 (23-29) mEq/L BUN 19 (8-23) mg/dL Creatinine 0.91 (0.70-1.30) mg/dL Est GFR ( Amer) > 60 (> 60) Est GFR (Non-Af Amer) > 60 (> 60) BUN/Creatinine Ratio 21 (6-26) Glucose 106 H (70-105) mg/dL Calculated Osmolality 281 (280-300) Lactic Acid 0.9 (0.5-2.2) mmol/L Calcium 8.8 (8.6-10.3) mg/dL Urine Color (Yellow) Urine Clarity (Clear) Urine pH (5.0-8.0) pH Units Ur Specific [place] (1.010-1.025) Urine Protein (Neg-Trace) mg/dL Urine Glucose (UA) (Normal) mg/dL Urine Ketones (Negative) mg/dL Urine Blood (Negative) Urine Nitrite (Negative) Urine Bilirubin (Negative) Urine Urobilinogen (Normal) mg/dL Ur Leukocyte Esterase (Negative) 02/04/19 Range/Units 23:56 WBC (4.3-11.1) K/mcL RBC (4.19-5.50) M/mcL Hgb (12.9-16.9) g/dL Hct (37.5-50.1) % MCV (83.0-100.0) fL MCH (28.0-33.3) pg MCHC (31.6-35.5) g/dL RDW (11.5-14.5) % Plt Count (140-400) K/mcL MPV (9.4-12.4) fL Immature Gran % (0-4) % Seg Neutrophils % % Lymphocytes % % Monocytes % % Eosinophils % % Basophils % % Neutrophils # (1.6-8.9) K/mcL Lymphocytes # (0.6-4.6) K/mcL Monocytes # (0.0-1.3) K/mcL Eosinophils # (0.0-0.6) K/mcL Basophils # (0.0-0.2) K/mcL Sodium (136-145) mEq/L Potassium (3.5-5.1) mEq/L Chloride (98-107) mEq/L Carbon Dioxide (23-29) mEq/L BUN (8-23) mg/dL Creatinine (0.70-1.30) mg/dL Est GFR ( Amer) (> 60) Est GFR (Non-Af Amer) (> 60) BUN/Creatinine Ratio (6-26) Glucose (70-105) mg/dL Calculated Osmolality (280-300) Lactic Acid (0.5-2.2) mmol/L Calcium (8.6-10.3) mg/dL Urine Color Yellow (Yellow) Urine Clarity Turbid A (Clear) Urine pH 6.5 (5.0-8.0) pH Units Ur Specific [place] < 1.005 L (1.010-1.025) Urine Protein 30 H (Neg-Trace) mg/dL Urine Glucose (UA) Normal (Normal) mg/dL Urine Ketones Negative (Negative) mg/dL Urine Blood Small H (Negative) Urine Nitrite Negative (Negative) Urine Bilirubin Negative (Negative) Urine Urobilinogen Normal (Normal) mg/dL Ur Leukocyte Esterase Large H (Negative) - Radiology Data Radiology results reviewed: Yes I reviewed the patient's radiology results. Scrotum Ultrasound 02/04/19 21:24 IMPRESSION: 1. Large complex left hydrocele. Differential considerations include hematocele versus pyocele. Clinical correlation is necessary. 2. No sonographic evidence of testicular torsion. 3. Left epididymis is not visualized. 4. Small simple right hydrocele. D/ / Indy Kidd / Indy Kidd Interpreting Provider: Indy Kidd Chest X-Ray 02/04/19 21:27 IMPRESSION: Left-sided airspace disease and effusion may represent pneumonia. D/ / Edison Sky MD / Edison Sky MD Interpreting Provider: Edison Sky MD Abdomen/Pelvis CT 02/04/19 21:45 IMPRESSION: Fluid is seen in the scrotum with overlying skin thickening. No obvious soft tissue gas. Correlate with clinical exam Asymmetric injection of the fat is seen surrounding the proximal right and left thigh. Focal fluid collection is seen posterior to the right femur, the sterility of which is indeterminate. Correlate for signs of cellulitis Small pleural effusions with adjacent airspace disease, either atelectasis or pneumonia Sclerotic foci in the vertebral body, either bone islands or sclerotic mets, similar to prior D/ / Clay Contreras MD / Clay Contreras MD Interpreting Provider: Clay Contreras MD - EKG Data EKG #1 EKG attestation: Yes I reviewed and interpreted this EKG. EKG results narrative: Ventricularly paced rhythm rate of 66. Normal axis. Negative [place]. No change when compared with prior from 01/15/17.
[2019-02-04 22:09] LABS: Basophils % 0.1 %; Hematocrit 37.8 % (37.5-50.1); Hemoglobin 11.9 g/dL (12.9-16.9); Immature Granulocytes % 0.9 % (0-4); Lymphocytes # 1.4 K/mcL (0.6-4.6); Lymphocytes % 6.1 %; Mean Corpuscular HGB Conc 31.5 g/dL (31.6-35.5); Mean Corpuscular Hemoglobin 29.5 pg (28.0-33.3); Mean Corpuscular Volume 93.8 fL (83.0-100.0); Mean Platelet Volume 11.4 fL (9.4-12.4); Monocytes # 2.4 K/mcL (0.0-1.3); Monocytes % 10.2 %; Neutrophils # 19.6 K/mcL (1.6-8.9); Platelet Count 132 K/mcL (140-400); Red Blood Count 4.03 M/mcL (4.19-5.50); Segmented Neutrophils % 82.7 %
[2019-02-04 22:28] LABS: BUN/Creatinine Ratio 21 (6-26); Blood Urea Nitrogen 19 mg/dL (8-23); Calcium 8.8 mg/dL (8.6-10.3); Carbon Dioxide 29 mEq/L (23-29); Chloride 97 mEq/L (98-107); Glucose 106 mg/dL (70-105); Osmolality,Calculated 281 (280-300); Potassium 3.5 mEq/L (3.5-5.1); Sodium 134 mEq/L (136-145); eGFR For Non-African Americans > 60 (> 60)
[2019-02-04] MEDS ORDERED: Piperacillin/Tazobactam 3.375 GM in 0.9 % Sodium Chloride Mini Bag 100 ML IVPB ONE (23:35)
[2019-02-04] MEDS ORDERED: 0.9 % Sodium Chloride 1,000 ML IVC STA (23:35)
[2019-02-05 00:26] LABS: Bilirubin,Urine Negative (Negative); Blood,Urine Small (Negative); Clarity,Urine Turbid (Clear); Color,Urine Yellow (Yellow); Glucose,Urine (UA) Normal (Normal); Ketones,Urine Negative (Negative); Leukocyte Esterase,Urine Large (Negative); Nitrite,Urine Negative (Negative); PH,Urine 6.5 pH Units (5.0-8.0); Protein,Urine 30 mg/dL (Neg-Trace); Specific Gravity,Urine < 1.005 (1.010-1.025); Urobilinogen,Urine Normal (Normal)
[2019-02-05 00:28] LABS: Bacteria,Urine Many per hpf (None-Few); Hyaline Casts,Urine None Seen per lpf (None-Few); Squamous Epithelial Cell,Urine Many per lpf (None-Few); WBC,Urine TNTC per hpf (0-3)
[2019-02-05] MEDS ORDERED: *HR* HYDROcodone/Acet 5/325 mg TABLET PO ONE (00:30)
[2019-02-05 00:39] LABS: Amorphous Sediment,Urine Few (Few); RBC,Urine 0-3 per hpf (0-3)
[2019-02-05] MEDS ORDERED: Naloxone 0.4 MG/ML INJ IVP PRN (02:40)
[2019-02-05] MEDS ORDERED: Acetaminophen 325 MG TABLET PO PRN (02:40)
[2019-02-05] MEDS ORDERED: 0.9 % Sodium Chloride w KCl 20 MEQ/1,000 ML MLS IVC SCH (02:45)
--- NOTE | 2019-02-05 02:57 | Internal Med History&Physical ---
Date of Encounter: 02/05/19 Time of Encounter: : Internal Medicine - H&P: HPI Chief complaint: fever, scrotal redness and swelling Admitted From: Emergency Dept Plans for Post Hospital Care: Home History of present illness: Mr. Garrido is a 68 year old male who presents to the ER tonight with complaints of fevers, chills, and redness and swelling in the scrotum. Because of the symptom development and fevers, his brought him to ER for evaluation. He was found to have evidence of cellulitis of the scrotum. Imaging with ultrasound and pelvis CT did not suggest any surgical emergency. ER staff contacted Dr. Alfaro from urology and discussed the case with him as well. He recommended treatment with IV antibiotics for suspected cellulitis, admission to hospitalist service, and that he would see patient in consultation. Furthermore, he recommended not removing or replacing the Ulloa catheter due to difficulty replacing it. Upon my assessment of the patient in the ER, he is lying in bed comfortably w ithout any complaints. He has a chronic indwelling Ulloa catheter due to neurogenic bladder. He has an old T7 spinal cord injury rendering him paralyzed from his chest down. He does not have any sensation in his scrotum/pelvis and cannot tell if he is having pain, redness, or swelling. However, with the fever onset and prior history of scrotal cellulitis, his checked the scrotum and noted the significant change. Regarding the catheter, he has it changed periodically by urology. It is technically difficult to replace and, therefore, Dr. Alfaro requested from the ER that the Ulloa catheter not be changed until he sees patient. Past Med Surg Social Fam HX - Past Medical History Attestation: Yes The following information was validated with the patient. Source: patient, old records reviewed, obtained from family Medical history: cancer, CHF, COPD Additional medical history: Paraplegic. kidney cancer (1999) Psychiatric history: no psych history - Past Surgical History Surgical History: cancer surgery, cholecystectomy, colostomy, pacemaker/AICD, other Additional surgical history: colostomy,left nephrectomy, chronic catheter. wound surgery - Social History Smoking Status: Never smoker Smokeless Tobacco Status: No Alcohol use: none Drug use: none Current living situation: Home, With Family Activity Level: Mostly sedentary Recent Out of Country Travel Within the Last 8 Weeks: No - Family History Mother Living Status: Father Family Member Ethnicity: Non- Living Status: Hx Family Cardiac Disorders: No Hx Family Respiratory Disorders: No Hx Family Cancer: Yes Hx Family GI Disorders: No Hx Family Endocrine Disorder: Yes Hx Family Neuromuscular Disorders: No Hx Family Neurologic Disorders: Yes Hx Family HEENT Disorders: No Hx Family Autoimmune Disorders: No Brother Hx Family GI Disorders: Yes Internal Medicine - H&P: Meds Ascorbate Calcium [Vitamin C] 500 mg PO DAILY 04/12/18 [History] Aspirin [Lo-Dose Aspirin EC] 81 mg PO DAILY 04/12/18 [History] Cetirizine HCl [Zyrtec] 10 mg PO DAILY 04/12/18 [History] Furosemide [Lasix] 40 mg PO BID 04/12/18 [History] Dantrolene Sodium PO TID 02/05/19 [History] traZODone [TraZODone] 100 mg PO HS 02/05/19 [History] Allergy/AdvReac Type Severity Reaction Status Date / Time latex Allergy Rash Verified 04/11/18 22:23 Sulfa (Sulfonamide Allergy Difficulty Verified 11/30/16 13:00 Antibiotics) Breathing - Constitutional Constitutional: chills, fatigue, fever(s), no night sweats - EENT Eyes: no blurry vision, no change in vision Ears: no ear pain, no tinnitus Nose, mouth and throat: no nasal congestion, no sinus pressure, no sore throat - Cardiovascular Cardiovascular ROS IM: no chest pain, no dyspnea - Respiratory Respiratory: no cough, no chest congestion, no excessive phlegm production - Gastrointestinal Gastrointestinal: no abdominal pain, no diarrhea, no hematemesis, no hematochezia, no melena, no vomiting - Genitourinary Genitourinary ROS male: no difficulty urinating, no dysuria - Musculoskeletal Musculoskeletal ROS IM: no arthralgias - Integumentary Integumentary IM: no rash, no jaundice - Neurological Neurological ROS: no dizziness, no focal weakness, no headache(s) - Psychiatric Psychiatric: no anxiety, no depression - Endocrine Endocrine IM: no polydipsia, no polyuria - Allergic/Immunologic Allergic/Immunologic: no GI upset with certain foods - Constitutional Vitals: Temp Pulse Resp BP Pulse Ox 98.3 F 62 18 116/72 90 02/04/19 23:17 02/05/19 01:09 02/05/19 01:09 02/05/19 01:09 02/05/19 01:09 General appearance: Present: cooperative, A&O X 3, pleasant, no acute distress, answers questions appropriately Exam: ill, non-toxic appearing - Head Head exam: Present: atraumatic, normal inspection - Eye Eye exam: Present: EOMI, PERRL. Absent: scleral icterus Pupils: Present: normal accommodation - ENT ENT exam: Present: mucous membranes dry, normal exam, normal oropharynx - Neck Neck exam general surgery: Present: full ROM, supple, trachea midline. Absent: lymphadenopathy, tenderness, nuchal rigidity, thyromegaly - Respiratory Respiratory exam: Present: CTAB. Absent: chest wall tenderness, rales, respiratory distress, rhonchi, wheezes - Cardiovascular Cardiovascular exam: Present: +S1, +S2. Absent: diastolic murmur, systolic murmur Additional comments: palpable pacer in chest - GI/Abdominal GI/Abdominal exam: Present: normal bowel sounds, soft. Absent: guarding, hepatomegaly, mass, rebound, splenomegaly, tenderness - exam: Present: scrotal swelling External exam: Present: erythema Additional comments: large left hydrocele, mild redness to scrotum - Extremities Exam Extremities exam: Present: pedal edema (non-pitting), warm, radial pulses palpable and symmetrical - Neurological Exam Neurological exam: Present: alert, CN II-XII intact, oriented X3 Additional comments: paralyzed from nipples down - Psychiatric Psychiatric exam: Present: normal affect, normal mood - Skin Skin exam: Present: dry, intact, warm Internal Med - H&P Results - Labs CBC & Chem 7: 02/04/19 21:59 02/04/19 21:59 Labs: Short CBC 02/04/19 Range/Units 21:59 WBC 23.7 H (4.3-11.1) K/mcL Hgb 11.9 L (12.9-16.9) g/dL Hct 37.8 (37.5-50.1) % Plt Count 132 L (140-400) K/mcL Neutrophils # 19.6 H (1.6-8.9) K/mcL BMP 02/04/19 21:59 Sodium 134 L Potassium 3.5 Chloride 97 L Carbon Dioxide 29 BUN 19 Creatinine 0.91 Glucose 106 H Calcium 8.8 Urine 02/04/19 Range/Units 23:56 Urine Color Yellow (Yellow) Urine Clarity Turbid A (Clear) Urine pH 6.5 (5.0-8.0) pH Units Ur Specific [place] < 1.005 L (1.010-1.025) Urine Protein 30 H (Neg-Trace) mg/dL Urine Glucose (UA) Normal (Normal) mg/dL - EKG Data -: EKG Interpreted by Myself - EKG Data Prior EKG available for review: yes EKG comments: 02/05/19 03:41 paced rhythm - Impressions ITS Impressions Scrotum Ultrasound 02/04/19 21:24 IMPRESSION: 1. Large complex left hydrocele. Differential considerations include hematocele versus pyocele. Clinical correlation is necessary. 2. No sonographic evidence of testicular torsion. 3. Left epididymis is not visualized. 4. Small simple right hydrocele. D/ / Indy Kidd / Indy Kidd Interpreting Provider: Indy Kidd Chest X-Ray 02/04/19 21:27 IMPRESSION: Left-sided airspace disease and effusion may represent pneumonia. D/ / Edison Sky MD / Edison Sky MD Interpreting Provider: Edison Sky MD Abdomen/Pelvis CT 02/04/19 21:45 IMPRESSION: Fluid is seen in the scrotum with overlying skin thickening. No obvious soft tissue gas. Correlate with clinical exam Asymmetric injection of the fat is seen surrounding the proximal right and left thigh. Focal fluid collection is seen posterior to the right femur, the sterility of which is indeterminate. Correlate for signs of cellulitis Small pleural effusions with adjacent airspace disease, either atelectasis or pneumonia Sclerotic foci in the vertebral body, either bone islands or sclerotic mets, similar to prior D/ / Clay Contreras MD / Clay Contreras MD Interpreting Provider: Clay Contreras MD - Diagnostic Studies Chest x-ray Status: image reviewed by me (LLL infiltrate) - Assessment and Plan (1) Catheter-associated urinary tract infection Current Visit: Yes Status: Acute Assessment and plan: 1. Urine culture and blood culture obtained. 2. Will continue IV antibiotics and monitor clinically. 3. IVF hydration. 4. Monitor hemodyamics. Qualifiers: Indwelling urinary catheter type: indwelling urethral catheter Encounter type: initial encounter Qualified Code(s): T83.511A - Infection and inflammatory reaction due to indwelling urethral catheter, initial encounter; N39.0 - Urinary tract infection, site not specified (2) LLL pneumonia Current Visit: Yes Status: Acute Assessment and plan: 1. Will continue antibiotics and follow clinically. 2. Oxygen and aerosols as needed for support. 3. Will ask RT to perform chest physiotherapy. Qualifiers: Pneumonia type: due to unspecified organism Qualified Code(s): J18.1 - Lobar pneumonia, unspecified organism (3) Cellulitis of scrotum Current Visit: Yes Status: Acute Assessment and plan: 1. Antibiotics as above. 2. Urology consult -- ER discussed with Dr. Alfaro. (4) DVT prophylaxis Current Visit: Yes Status: Acute Assessment and plan: 1. Heparin SQ.
[2019-02-05] MEDS: *HR* Heparin 5,000 UNIT/ML VIAL SQ SCH ×3 (05:28→20:57)
[2019-02-05 05:36] LABS: Monocytes % 9.1 %
[2019-02-05 05:37] LABS: Basophils % 0.1 %; Hematocrit 38.2 % (37.5-50.1); Hemoglobin 11.8 g/dL (12.9-16.9); Immature Granulocytes % 1.6 % (0-4); Lymphocytes # 1.1 K/mcL (0.6-4.6); Lymphocytes % 4.1 %; Mean Corpuscular HGB Conc 30.9 g/dL (31.6-35.5); Mean Corpuscular Hemoglobin 29.7 pg (28.0-33.3); Mean Corpuscular Volume 96.2 fL (83.0-100.0); Mean Platelet Volume 11.9 fL (9.4-12.4); Monocytes # 2.3 K/mcL (0.0-1.3); Neutrophils # 21.9 K/mcL (1.6-8.9); Platelet Count 128 K/mcL (140-400); Red Blood Count 3.97 M/mcL (4.19-5.50); Red Cell Distribution Width 16.3 % (11.5-14.5); Segmented Neutrophils % 85.1 %
[2019-02-05 06:00] LABS: Platelet Estimate Decreased (Normal)
[2019-02-05 06:01] LABS: Anisocytosis 1+ (Not Present)
[2019-02-05 06:19] LABS: Alanine Aminotransferase 5 Units/L (7-52); Albumin 3.1 g/dL (3.5-5.7); Albumin/Globulin Ratio 0.9 (1.1-2.2); Alkaline Phosphatase 105 Units/L (34-104); Aspartate Amino Transferase 9 Units/L (13-39); BUN/Creatinine Ratio 21 (6-26); Bilirubin,Total 1.8 mg/dL (0.3-1.0); Blood Urea Nitrogen 20 mg/dL (8-23); Calcium 8.2 mg/dL (8.6-10.3); Carbon Dioxide 29 mEq/L (23-29); Chloride 99 mEq/L (98-107); Globulin 3.6 g/dL (2.4-3.5); Glucose 95 mg/dL (70-105); Magnesium 1.8 mg/dL (1.6-2.6); Osmolality,Calculated 284 (280-300); Phosphorous 3.1 mg/dL (2.7-4.5); Potassium 3.5 mEq/L (3.5-5.1); Sodium 136 mEq/L (136-145); Total Protein 6.7 g/dL (6.4-8.9); eGFR For Non-African Americans > 60 (> 60)
--- NOTE | 2019-02-05 07:12 | Urology - Consult Note ---
Date of Encounter: 02/05/19 Time of Encounter: 07:10 - Assessment and Plan (1) Cellulitis of scrotum Current Visit: Yes Status: Acute Assessment and plan: I agree there is evidence of cellulitis of the scrotum. At the same time I do not see any signs of abscess or necrotizing fasciitis. At this point no surgical intervention is required. It is possible for the patient to develop infection of a hydrocele and if he does not improve clinically over the next few days may need to consider drainage of the hydrocele. I do not want to consider this at this time as it can introduce worsening infection into the scrotum. We will have the nurses change the catheter today. Follow urine culture. Continue broad-spectrum antibiotics. Urology CN:KATHRYN Consult date: 02/05/19 Reason for consult Urology: Other History of present illness: Patient well-known to the urology service. History of quadriplegia. Neurogenic bladder. Admitted with possible scrotal cellulitis. He has had fever at home. States he still feels "rough" Past Med Surg Social Fam HX - Past Medical History Medical history: cancer, CHF, COPD Additional medical history: Paraplegic. kidney cancer (1999) Psychiatric history: no psych history - Past Surgical History Surgical History: cancer surgery, cholecystectomy, colostomy, pacemaker/AICD, other Additional surgical history: colostomy,left nephrectomy, chronic catheter. wound surgery - Social History Smoking Status: Never smoker Smokeless Tobacco Status: No Alcohol use: none Drug use: none - Family History Mother Living Status: Father Family Member Ethnicity: Non- Living Status: Hx Family Cardiac Disorders: No Hx Family Respiratory Disorders: No Hx Family Cancer: Yes Hx Family GI Disorders: No Hx Family Endocrine Disorder: Yes Hx Family Neuromuscular Disorders: No Hx Family Neurologic Disorders: Yes Hx Family HEENT Disorders: No Hx Family Autoimmune Disorders: No Brother Hx Family GI Disorders: Yes Medications and Allergies Ascorbate Calcium [Vitamin C] 500 mg PO DAILY 04/12/18 [History] Aspirin [Lo-Dose Aspirin EC] 81 mg PO DAILY 04/12/18 [History] Cetirizine HCl [Zyrtec] 10 mg PO DAILY 04/12/18 [History] Furosemide [Lasix] 40 mg PO BID 04/12/18 [History] Dantrolene Sodium PO TID 02/05/19 [History] traZODone [TraZODone] 100 mg PO HS 02/05/19 [History] Allergy/AdvReac Type Severity Reaction Status Date / Time latex Allergy Rash Verified 04/11/18 22:23 Sulfa (Sulfonamide Allergy Difficulty Verified 11/30/16 13:00 Antibiotics) Breathing Review of Systems - Constitutional chills, fatigue, fever(s), malaise, weakness - EENT Nose, mouth and throat: no dizziness - Cardiovascular no chest pain - Respiratory no cough - Gastrointestinal no abdominal pain - Genitourinary no hematuria - Musculoskeletal no back pain - Neurological no confusion - Psychiatric no anxiety - Hematologic/Lymphatic no easy bleeding - Allergic/Immunologic no throat swelling Exam Initial Vital Signs Temp Pulse Resp BP Pulse Ox 98.7 F 76 15 115/83 94 02/04/19 20:46 02/04/19 20:46 02/04/19 20:46 02/04/19 20:46 02/04/19 20:46 - General physical appearance Present: no distress - Eyes Present: PERRL - Neck Present: no masses, no lymphadenopathy - Respiratory Present: normal respiratory effort - Cardiovascular Cardiovascular exam IM: RRR - Abdomen Abdomen: Present: soft - Neurologic Absent: disoriented, confused - Additional Findings Patient with spastic quadriplegia Abdomen is obese but soft and benign Ulloa catheter in place draining slightly cloudy urine Penis without evidence of edema or erythema Enlarged scrotum consistent with known hydrocele. Overlying skin is somewhat taut and only mildly erythematous this morning. I did not appreciate any signs of abscess. Urology Results - Labs 02/05/19 04:43 02/05/19 04:43 Abnormal lab results WBC 25.7 K/mcL (4.3-11.1) H 02/05/19 04:43 RBC 3.97 M/mcL (4.19-5.50) L 02/05/19 04:43 Hgb 11.8 g/dL (12.9-16.9) L 02/05/19 04:43 MCHC 30.9 g/dL (31.6-35.5) L 02/05/19 04:43 RDW 16.3 % (11.5-14.5) H 02/05/19 04:43 Plt Count 128 K/mcL (140-400) L 02/05/19 04:43 21.9 K/mcL (1.6-8.9) H 02/05/19 04:43 2.3 K/mcL (0.0-1.3) H 02/05/19 04:43 Decreased (Normal) L 02/05/19 04:43 1+ (Not Present) A 02/05/19 04:43 Sodium 134 mEq/L (136-145) L 02/04/19 21:59 Chloride 97 mEq/L (98-107) L 02/04/19 21:59 Glucose 106 mg/dL (70-105) H 02/04/19 21:59 Calcium 8.2 mg/dL (8.6-10.3) L 02/05/19 04:43 1.8 mg/dL (0.3-1.0) H 02/05/19 04:43 AST 9 Units/L (13-39) L 02/05/19 04:43 ALT 5 Units/L (7-52) L 02/05/19 04:43 105 Units/L (34-104) H 02/05/19 04:43 3.1 g/dL (3.5-5.7) L 02/05/19 04:43 3.6 g/dL (2.4-3.5) H 02/05/19 04:43 0.9 (1.1-2.2) L 02/05/19 04:43 Turbid (Clear) A 02/04/19 23:56 Ur Specific [place] < 1.005 (1.010-1.025) L 02/04/19 23:56 30 mg/dL (Neg-Trace) H 02/04/19 23:56 Small (Negative) H 02/04/19 23:56 Ur Leukocyte Esterase Large (Negative) H 02/04/19 23:56 TNTC per hpf (0-3) H 02/04/19 23:56 Ur Squamous Epith Cells Many per lpf (None-Few) H 02/04/19 23:56 Many per hpf (None-Few) H 02/04/19 23:56 Ur Culture Indicated? YES (NO) A 02/04/19 23:56 Diabetes panel 02/04/19 02/05/19 Range/Units 21:59 04:43 Sodium 134 L 136 (136-145) mEq/L Potassium 3.5 3.5 (3.5-5.1) mEq/L Chloride 97 L 99 (98-107) mEq/L Carbon Dioxide 29 29 (23-29) mEq/L BUN 19 20 (8-23) mg/dL Creatinine 0.91 0.96 (0.70-1.30) mg/dL Glucose 106 H 95 (70-105) mg/dL Calcium 8.8 8.2 L (8.6-10.3) mg/dL AST 9 L (13-39) Units/L ALT 5 L (7-52) Units/L Alkaline Phosphatase 105 H (34-104) Units/L Albumin 3.1 L (3.5-5.7) g/dL Calcium panel 02/04/19 02/05/19 Range/Units 21:59 04:43 Calcium 8.8 8.2 L (8.6-10.3) mg/dL Phosphorus 3.1 (2.7-4.5) mg/dL Albumin 3.1 L (3.5-5.7) g/dL Pituitary panel 02/04/19 02/05/19 Range/Units 21:59 04:43 Sodium 134 L 136 (136-145) mEq/L Potassium 3.5 3.5 (3.5-5.1) mEq/L Chloride 97 L 99 (98-107) mEq/L Carbon Dioxide 29 29 (23-29) mEq/L BUN 19 20 (8-23) mg/dL Creatinine 0.91 0.96 (0.70-1.30) mg/dL Glucose 106 H 95 (70-105) mg/dL Calcium 8.8 8.2 L (8.6-10.3) mg/dL Adrenal panel 02/04/19 02/05/19 Range/Units 21:59 04:43 Sodium 134 L 136 (136-145) mEq/L Potassium 3.5 3.5 (3.5-5.1) mEq/L Chloride 97 L 99 (98-107) mEq/L Carbon Dioxide 29 29 (23-29) mEq/L BUN 19 20 (8-23) mg/dL Creatinine 0.91 0.96 (0.70-1.30) mg/dL Glucose 106 H 95 (70-105) mg/dL Calcium 8.8 8.2 L (8.6-10.3) mg/dL Total Bilirubin 1.8 H (0.3-1.0) mg/dL AST 9 L (13-39) Units/L ALT 5 L (7-52) Units/L Alkaline Phosphatase 105 H (34-104) Units/L Albumin 3.1 L (3.5-5.7) g/dL All other labs normal. Consult Discharge Plan - Plan Referrals: Patrice Tejeda MD [Primary Care Provider] -
[2019-02-05] MEDS ORDERED: Aminoglycoside Consult 1 EACH MC ONE (07:31)
[2019-02-05] MEDS: Loratadine 10 MG TABLET PO SCH (08:57)
[2019-02-05] MEDS: Aspirin Enteric Coated 81 MG Tablet PO SCH (08:57)
[2019-02-05] MEDS: Piperacillin/Tazobactam 3.375 GM in 0.9 % Sodium Chloride Mini Bag 100 ML IVPB SCH ×2 (08:57→15:57)
[2019-02-05] MEDS: Ascorbic Acid 500 MG TABLET PO SCH (08:57)
[2019-02-05] MEDS: Acetaminophen 325 MG TABLET PO PRN (10:59)
[2019-02-05] MEDS ORDERED: 0.9 % Sodium Chloride 500 ML IVC ONE (12:24)
[2019-02-05] MEDS: Ondansetron 4 MG/2 ML VIAL IVP PRN (12:25)
[2019-02-05] MEDS ORDERED: D5% in 0.9% NACL 1,000 ML IVC SCH (12:55)
--- NOTE | 2019-02-05 14:41 | Event Note ---
Date of Encounter: 02/05/19 Time of Encounter: 14:31 I have seen and evaluated the patient at bedside. patient reports feeling weakness. denies chest pain, shortness of breath, nausea or vomiting. denies abdominal pain. Physical exam Vitals: reviewed General: Alert and oriented x3. In mild distress due to generalized weakness HEENT: EOM, pupils equal, round and reactive. Cardiovascular: Irregularly irregular, normal S1 & S2, no rubs, murmurs or gallops. Lungs: CTA b/l, no wheezes or crackles. Abdomen: Obese, soft, non-tender, no rigidity. Extremities: paraplegic : scrotal erythema and edema. Neurological: No acute focal neurological deficits Rest of the physical exam is non contributory Assessment 1. Sepsis 2. UTI 3. Scrotal cellulitis 4. Hydrocele 5. tachybrady syndrome s/p pacemaker 6. VTE prophylaxis 7. CHF? 8. 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 discontinue vancomycin started on linezolid discontinue trazadone continue piperacillin/tazobactam 3.375mg/IV Q8HRs blood culture: no growth, pending final report Urine culture: incubating Will repeat TTE, patient with a Hx of CHF per and needs aggressive IV fluids resuscitation last echo 2 years ago. NS 500 ml blous D5NS @100 ml/hr for maintenance fluid heparin subQ for DVT prophylaxis Urologist recommendations appreciated
--- NOTE | 2019-02-05 14:53 | Urology Procedure Note ---
Date of Encounter: 02/05/19 Time of Encounter: 14:30 Procedures:Urology - Catheter Insertion (Urinary) Prophylactic antibiotics given: No Bladder Scan/Ultrasound used before catheterization: No Preparation: Povidone-Iodine, Lidocaine Jelly Type of catheter inserted: 2 way, silastic Catheter Tamazight Size: 20 Topical anesthesia used: No Results: successfully catheterized-immediate flow Urine Appearance: Clear Patient tolerated procedure: well, no complications Complications: none Additional comments: I was called to place a catheter after multiple attempts from nursing staff. Patient has significant scrotal edema and uncircumcised, buried penis. Patient lying in dorsolithotomy position with his at bedside. Patient was prepped and draped in normal sterile fashion. Patient's nurse assisted me with suprapu bic retraction, and I was able to visualize the urethra. A 20-Tamazight Silastic catheter was passed through the urethra into the bladder. I met some resistance proximally but was able to advance with minimal resistance. I instilled 20 mL into the catheter balloon. Scant return of urine was observed, but patient's nurse reports he soaked his bed prior to catheter insertion. Patient tolerated the procedure well without complication.
--- NOTE | 2019-02-05 14:54 | Electrocardiograph Report ---
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
[2019-02-05] MEDS ORDERED: Perflutren Lipid Microsphere 1.3 ML in 0.9 % Sodium Chloride 8.7 ML IVP ONE (17:42)
[2019-02-05] MEDS: D5% in 0.9% NACL 1,000 ML IVC SCH (20:58)
[2019-02-05] MEDS ORDERED: traZODone 50 MG TABLET PO SCH (21:00)
[2019-02-06] MEDS: Piperacillin/Tazobactam 3.375 GM in 0.9 % Sodium Chloride Mini Bag 100 ML IVPB SCH ×3 (00:02→16:40)
[2019-02-06] MEDS: *HR* Heparin 5,000 UNIT/ML VIAL SQ SCH ×3 (05:12→23:59)
[2019-02-06 07:15] LABS: BUN/Creatinine Ratio 20 (6-26); Blood Urea Nitrogen 24 mg/dL (8-23); Calcium 8.5 mg/dL (8.6-10.3); Carbon Dioxide 29 mEq/L (23-29); Chloride 99 mEq/L (98-107); Glucose 118 mg/dL (70-105); Magnesium 1.8 mg/dL (1.6-2.6); Osmolality,Calculated 289 (280-300); Phosphorous 3.5 mg/dL (2.7-4.5); Potassium 3.9 mEq/L (3.5-5.1); Sodium 137 mEq/L (136-145); eGFR For Non-African Americans 59 (> 60)
[2019-02-06 07:18] LABS: Hemoglobin 11.5 g/dL (12.9-16.9); Red Cell Distribution Width 16.3 % (11.5-14.5)
[2019-02-06 07:19] LABS: Lymphocytes # 0.9 K/mcL (0.6-4.6); Mean Corpuscular HGB Conc 30.3 g/dL (31.6-35.5); Mean Corpuscular Hemoglobin 29.7 pg (28.0-33.3); Mean Corpuscular Volume 98.2 fL (83.0-100.0); Mean Platelet Volume 11.8 fL (9.4-12.4); Monocytes # 1.6 K/mcL (0.0-1.3); Platelet Count 122 K/mcL (140-400); Red Blood Count 3.87 M/mcL (4.19-5.50)
[2019-02-06 07:47] LABS: Platelet Estimate Slight Decrease (Normal)
[2019-02-06 07:54] LABS: Neutrophils # 22.8 K/mcL (1.6-8.9)
[2019-02-06] MEDS: Loratadine 10 MG TABLET PO SCH (09:00)
[2019-02-06] MEDS: Aspirin Enteric Coated 81 MG Tablet PO SCH (09:00)
[2019-02-06] MEDS: Acetaminophen 325 MG TABLET PO PRN (09:00)
[2019-02-06] MEDS: Ondansetron 4 MG/2 ML VIAL IVP PRN (09:00)
[2019-02-06] MEDS: Ascorbic Acid 500 MG TABLET PO SCH (09:00)
--- NOTE | 2019-02-06 09:27 | Urology Progress Note ---
<Violeta Schmitt N - Last Filed: 02/06/19 09:24> Date of Encounter: 02/06/19 Time of Encounter: 08:00 - Assessment and Plan (1) Cellulitis of scrotum Current Visit: Yes Status: Acute Assessment and plan: Patient is a 68-year-old male who presents with scrotal cellulitis. Vital signs are stable and afebrile. Patient is receiving IV Zosyn and vancomycin. Dr. Alfaro will be in to reevaluate patient later today. Progress Note Subjective: no new complaints Narrative: Patient seen and examined lying in bed in no apparent distress. Ulloa catheter is indwelling and draining cloudy, yellow urine into bedside bag. Patient denies any fever or chills. Objective Initial Vital Signs Temp Pulse Resp BP Pulse Ox 98.7 F 76 15 115/83 94 02/04/19 20:46 02/04/19 20:46 02/04/19 20:46 02/04/19 20:46 02/04/19 20:46 - General physical appearance Present: no distress, no pain, obese - Respiratory Present: normal expansion, normal respiratory effort - Abdomen Present: soft, non tender - Genitourinary scrotal mass/hydrocele: bilateral (Diffuse erythematous, edematous scrotum) Urine Appearance: Present: Cloudy - Integumentary Present: no rash, no growths - Musculoskeletal Present: other (Bilateral contracted lower extremities) - Psychiatric Present: oriented to time, oriented to person, oriented to place, speech is normal, memory intact - Labs 02/06/19 06:23 02/06/19 06:23 Diabetes panel 02/06/19 Range/Units 06:23 Sodium 137 (136-145) mEq/L Potassium 3.9 (3.5-5.1) mEq/L Chloride 99 (98-107) mEq/L Carbon Dioxide 29 (23-29) mEq/L BUN 24 H (8-23) mg/dL Creatinine 1.22 (0.70-1.30) mg/dL Glucose 118 H (70-105) mg/dL Calcium 8.5 L (8.6-10.3) mg/dL Calcium panel 02/06/19 Range/Units 06:23 Calcium 8.5 L (8.6-10.3) mg/dL Phosphorus 3.5 (2.7-4.5) mg/dL Pituitary panel 02/06/19 Range/Units 06:23 Sodium 137 (136-145) mEq/L Potassium 3.9 (3.5-5.1) mEq/L Chloride 99 (98-107) mEq/L Carbon Dioxide 29 (23-29) mEq/L BUN 24 H (8-23) mg/dL Creatinine 1.22 (0.70-1.30) mg/dL Glucose 118 H (70-105) mg/dL Calcium 8.5 L (8.6-10.3) mg/dL Adrenal panel 02/06/19 Range/Units 06:23 Sodium 137 (136-145) mEq/L Potassium 3.9 (3.5-5.1) mEq/L Chloride 99 (98-107) mEq/L Carbon Dioxide 29 (23-29) mEq/L BUN 24 H (8-23) mg/dL Creatinine 1.22 (0.70-1.30) mg/dL Glucose 118 H (70-105) mg/dL Calcium 8.5 L (8.6-10.3) mg/dL Consult Discharge Plan - Plan Referrals: Patrice Tejeda MD [Primary Care Provider] - <Dennis Alfaro - Last Filed: 02/07/19 07:50> Date of Encounter: 02/07/19 - Assessment and Plan (1) Cellulitis of scrotum Current Visit: Yes Status: Acute Assessment and plan: Agree with assessment from physician clothing sales assistant. Exam not concerning. No need for surgical intervention at this time Objective Initial Vital Signs Temp Pulse Resp BP Pulse Ox 98.7 F 76 15 115/83 94 02/04/19 20:46 02/04/19 20:46 02/04/19 20:46 02/04/19 20:46 02/04/19 20:46 - Labs 02/07/19 02:20 02/07/19 02:20 Diabetes panel 02/07/19 Range/Units 02:20 Sodium 136 (136-145) mEq/L Potassium 4.1 (3.5-5.1) mEq/L Chloride 103 (98-107) mEq/L Carbon Dioxide 24 (23-29) mEq/L BUN 28 H (8-23) mg/dL Creatinine 1.46 H (0.70-1.30) mg/dL Glucose 114 H (70-105) mg/dL Calcium 8.3 L (8.6-10.3) mg/dL Calcium panel 02/07/19 Range/Units 02:20 Calcium 8.3 L (8.6-10.3) mg/dL Phosphorus 3.8 (2.7-4.5) mg/dL Pituitary panel 02/07/19 Range/Units 02:20 Sodium 136 (136-145) mEq/L Potassium 4.1 (3.5-5.1) mEq/L Chloride 103 (98-107) mEq/L Carbon Dioxide 24 (23-29) mEq/L BUN 28 H (8-23) mg/dL Creatinine 1.46 H (0.70-1.30) mg/dL Glucose 114 H (70-105) mg/dL Calcium 8.3 L (8.6-10.3) mg/dL Adrenal panel 02/07/19 Range/Units 02:20 Sodium 136 (136-145) mEq/L Potassium 4.1 (3.5-5.1) mEq/L Chloride 103 (98-107) mEq/L Carbon Dioxide 24 (23-29) mEq/L BUN 28 H (8-23) mg/dL Creatinine 1.46 H (0.70-1.30) mg/dL Glucose 114 H (70-105) mg/dL Calcium 8.3 L (8.6-10.3) mg/dL
[2019-02-06] MEDS: D5% in 0.9% NACL 1,000 ML IVC SCH (11:30)
--- NOTE | 2019-02-06 12:06 | Internal Med Progress Note ---
Hospitalist Progress Note - Encounter Date of Encounter: 02/06/19 Time of Encounter: 12:04 - Subjective Interval History: I have seen and evaluated the patient at bedside. Patient reports feeling better than yesterday, stronger. Reports feeling nauseated after he took some medications. denies shortness of breath, or chest pain. denies abdominal pain. - Exam Vitals: Temp Pulse Resp BP Pulse Ox 97.9 F 84 19 99/57 94 02/06/19 10:40 02/06/19 10:40 02/06/19 10:40 02/06/19 10:40 02/06/19 10:40 Exam: Vitals: reviewed General: Alert and oriented x3. In mild distress due to nausea Cardiovascular: RRR, normal S1 & S2, no rubs, murmurs or gallops. Lungs: CTA b/l, no wheezes or crackles. Abdomen: Obese, soft, non-tender, no rigidity. ostomy bag. Extremities: paraplegic : scrotal erythema and edema. Neurological: No acute focal neurological deficits Rest of the physical exam is non contributory - Assessment and Plan (1) Sepsis Current Visit: Yes Status: Acute Assessment and Plan: Secondary to pneumonia, scrotal cellulitis, and urinary tract infection. patient hypotensive on presentation. Appropriately resuscitated. Plan Discontinue linezolid We will restart vancomycin per pharmacy protocol Continue piperacillin/tazobactam 3.375 mg IV every 8 hours. Continue D5/0.9NS @75ml/hr Urine culture: Gram-negative rods, pending sensitivity and specificity. Blood cultures: no growth, pending final report. IR consulted. 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 patient off anticoagulation and medications for rate control potline monitor (7) NAN on CPAP Current Visit: No Status: Chronic Assessment and Plan: Nocturnal BiPAP. (8) Hydrocele Current Visit: Yes Status: Chronic Assessment and Plan: Urology recommendation appreciated. DVT Prophylaxis: On heparin 5000 units subcutaneous twice a day. - Time Spent with Patient Total time spent is greater than 50% in coordination of care (as documented) at patient's floor/unit and/or counseling patient: Greater than 35 minutes (45) Plan of Care Discussed with: patient (his and the nurse.) Internal Medicine: Result - Labs CBC & Chem 7: 02/06/19 06:23 02/06/19 06:23 Labs: Short CBC 02/06/19 Range/Units 06:23 WBC 24.6 H (4.3-11.1) K/mcL Hgb 11.5 L (12.9-16.9) g/dL Hct 38.0 (37.5-50.1) % Plt Count 122 L (140-400) K/mcL Neutrophils # 22.8 H (1.6-8.9) K/mcL BMP 02/06/19 06:23 Sodium 137 Potassium 3.9 Chloride 99 Carbon Dioxide 29 BUN 24 H Creatinine 1.22 Glucose 118 H Calcium 8.5 L Consult Discharge Plan - Plan Referrals: Patrice Tejeda MD [Primary Care Provider] - (1) Sepsis Qualifiers: Sepsis type: sepsis due to unspecified organism Qualified Code(s): A41.9 - Sepsis, unspecified organism (3) Catheter-associated urinary tract infection Qualifiers: Indwelling urinary catheter type: indwelling urethral catheter Encounter type: initial encounter Qualified Code(s): T83.511A - Infection and inflammatory reaction due to indwelling urethral catheter, initial encounter; N39.0 - Urinary tract infection, site not specified (4) LLL pneumonia Qualifiers: Pneumonia type: due to unspecified organism Qualified Code(s): J18.1 - Lobar pneumonia, unspecified organism (6) Atrial fibrillation Qualifiers: Atrial fibrillation type: chronic Qualified Code(s): I48.2 - Chronic atrial fibrillation (8) Hydrocele Qualifiers: Hydrocele type: unspecified Qualified Code(s): N43.3 - Hydrocele, unspecified
[2019-02-06] MEDS ORDERED: D5% in 0.9% NACL 1,000 ML IVC SCH (17:58)
[2019-02-07] MEDS: traZODone 50 MG TABLET PO SCH ×2 (00:04→21:19)
[2019-02-07 02:30] LABS: Basophils % 0.2 %; Hematocrit 37.6 % (37.5-50.1); Hemoglobin 11.4 g/dL (12.9-16.9); Immature Granulocytes % 1.9 % (0-4); Lymphocytes # 1.1 K/mcL (0.6-4.6); Lymphocytes % 4.4 %; Mean Corpuscular HGB Conc 30.3 g/dL (31.6-35.5); Mean Corpuscular Hemoglobin 30.2 pg (28.0-33.3); Mean Corpuscular Volume 99.5 fL (83.0-100.0); Mean Platelet Volume 11.5 fL (9.4-12.4); Monocytes # 1.8 K/mcL (0.0-1.3); Monocytes % 7.5 %; Neutrophils # 20.5 K/mcL (1.6-8.9); Platelet Count 123 K/mcL (140-400); Red Blood Count 3.78 M/mcL (4.19-5.50); Red Cell Distribution Width 16.3 % (11.5-14.5)
[2019-02-07 02:45] LABS: Calcium 8.3 mg/dL (8.6-10.3); Magnesium 1.9 mg/dL (1.6-2.6); Phosphorous 3.8 mg/dL (2.7-4.5); Potassium 4.1 mEq/L (3.5-5.1)
[2019-02-07] MEDS: *HR* Heparin 5,000 UNIT/ML VIAL SQ SCH ×3 (05:17→21:19)
[2019-02-07 05:40] LABS: ABG Base Excess -1 mEq/L (-2 to 3); ABG HCO3 29 mEq/L (21-27); ABG Oxygen Saturation 91 % (95-98); ABG PCO2 76 mmHg (35-45); ABG PH 7.19 pH Units (7.32-7.45); ABG PO2 77 mmHg (85-104); ABG TCO2 32 mEq/L (20-26)
[2019-02-07] MEDS ORDERED: Ringers Solution, Lactated 1,000 ML IVC SCH (07:30)
--- NOTE | 2019-02-07 08:44 | Urology Progress Note ---
Date of Encounter: 02/07/19 Time of Encounter: 08:41 - Assessment and Plan (1) Cellulitis of scrotum Current Visit: Yes Status: Acute Assessment and plan: Appears to be resolving. No surgical intervention. (2) Acute renal insufficiency Current Visit: Yes Status: Acute Assessment and plan: Creatinine has risen today. I suspect that this is intrinsic rather than obstructive as he is on vancomycin and has been ill with infection. Consider stopping vancomycin and increasing IV fluids. If no improvement in his renal function he would require a renal ultrasound. Progress Note Narrative: Patient resting comfortably in evaluation. States no change in symptoms Objective Initial Vital Signs Temp Pulse Resp BP Pulse Ox 98.7 F 76 15 115/83 94 02/04/19 20:46 02/04/19 20:46 02/04/19 20:46 02/04/19 20:46 02/04/19 20:46 - General physical appearance Present: no distress, chronically ill - Additional Exam Very mild erythema to scrotum. Scrotal distention consistent with hydrocele is stable. Urine clear - Labs 02/07/19 02:20 02/07/19 02:20 Diabetes panel 02/07/19 Range/Units 02:20 Sodium 136 (136-145) mEq/L Potassium 4.1 (3.5-5.1) mEq/L Chloride 103 (98-107) mEq/L Carbon Dioxide 24 (23-29) mEq/L BUN 28 H (8-23) mg/dL Creatinine 1.46 H (0.70-1.30) mg/dL Glucose 114 H (70-105) mg/dL Calcium 8.3 L (8.6-10.3) mg/dL Calcium panel 02/07/19 Range/Units 02:20 Calcium 8.3 L (8.6-10.3) mg/dL Phosphorus 3.8 (2.7-4.5) mg/dL Pituitary panel 02/07/19 Range/Units 02:20 Sodium 136 (136-145) mEq/L Potassium 4.1 (3.5-5.1) mEq/L Chloride 103 (98-107) mEq/L Carbon Dioxide 24 (23-29) mEq/L BUN 28 H (8-23) mg/dL Creatinine 1.46 H (0.70-1.30) mg/dL Glucose 114 H (70-105) mg/dL Calcium 8.3 L (8.6-10.3) mg/dL Adrenal panel 02/07/19 Range/Units 02:20 Sodium 136 (136-145) mEq/L Potassium 4.1 (3.5-5.1) mEq/L Chloride 103 (98-107) mEq/L Carbon Dioxide 24 (23-29) mEq/L BUN 28 H (8-23) mg/dL Creatinine 1.46 H (0.70-1.30) mg/dL Glucose 114 H (70-105) mg/dL Calcium 8.3 L (8.6-10.3) mg/dL Consult Discharge Plan - Plan Referrals: Patrice Tejeda MD [Primary Care Provider] -
[2019-02-07] MEDS: Piperacillin/Tazobactam 3.375 GM in 0.9 % Sodium Chloride Mini Bag 100 ML IVPB SCH ×4 (10:15→23:10)
[2019-02-07] MEDS: Aspirin Enteric Coated 81 MG Tablet PO SCH (10:16)
[2019-02-07] MEDS: Ascorbic Acid 500 MG TABLET PO SCH (10:16)
[2019-02-07] MEDS: Loratadine 10 MG TABLET PO SCH (10:16)
[2019-02-07] MEDS ORDERED: Ipratropium/Albuterol Neb 3 ML IH PRN (12:05)
--- NOTE | 2019-02-07 12:10 | Internal Med Progress Note ---
Hospitalist Progress Note - Encounter Date of Encounter: 02/07/19 Time of Encounter: 12:08 - Subjective Interval History: I have seen and evaluated the patient at bedside. Patient reports feels better today than for the past couple of days. denies headache, nausea or vomiting. denies shortness of breath. - Exam Vitals: Temp Pulse Resp BP Pulse Ox 98.1 F 72 12 110/72 98 02/07/19 11:37 02/07/19 11:37 02/07/19 11:37 02/07/19 11:37 02/07/19 11:37 Exam: Vitals: reviewed General: Alert and oriented x3. In mild distress due to being on BiPap Cardiovascular: RRR, normal S1 & S2, no rubs, murmurs or gallops. Lungs: CTA b/l, no wheezes or crackles. Abdomen: Obese, soft, non-tender, no rigidity. ostomy bag. Extremities: paraplegic : scrotal erythema and edema slight improvement Neurological: No acute focal neurological deficits Rest of the physical exam is non contributory - Assessment and Plan (1) Sepsis Current Visit: Yes Status: Acute Assessment and Plan: septic picture on presentation improving. BP has responded to fluids resuscitation. Plan discontinue vancomycin continue piperacillin/tazobactam 3.375mg/IV Q8HRs urine culture: grew pansensitive pseudomonas Blood culture: no growth, pending final report IR consulted. for investigation of Tubular collection of fluid marginates the right femur posteriorly, measuring 8.5 cm x 2.[address] abd/pelvis ESR and CRP ordered (2) Cellulitis of scrotum Current Visit: Yes Status: Acute Assessment and Plan: Plan of care as above (3) Catheter-associated urinary tract infection Current Visit: Yes Status: Acute Assessment and Plan: Urine culture grew: Pansensitive pseudomonas. Patient is on piperacillin/tazobactam 3.375 mg IV every 8 hours. (4) LLL pneumonia Current Visit: Yes Status: Acute Assessment and Plan: XR/XR chest 1V portable IMPRESSION: Slight worsening of pleural and parenchymal opacity within the lower half left hemithorax over the past 2 days. The asymmetric distribution would favor left lower lobe pneumonia over asymmetric pulmonary edema. Possible dependent pulmonary edema or endobronchial spread of pneumonia right lower lobe. Continue piperacillin/tazobactam. 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 (6) Atrial fibrillation Current Visit: No Status: Chronic Assessment and Plan: s/p pacemaker. 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 (9) Acute hypercapnic respiratory failure Current Visit: Yes Status: Acute Assessment and Plan: Patient placed on BiPAP. alternate with O2 by nasal cannula, titrate for O2Sat >92%. started on bronchodilators will repeat chest x-ray. diminished breath sounds on auscultation b/l. incentive spirometry if tolerated pulmonary toileting IV fluids discontinue due to signs of volume overload on chest x-ray (10) ANDREW (acute kidney injury) Current Visit: No Status: Acute Assessment and Plan: patient with only one kidney. s/p nephrectomy due to kidney ca. Multifactorial possible secondary to sepsis on presentation versus antibiotics, vancomycin. will not start the patient on IV hydration due to resspiratory failure on BiPap and signs of volume overload on x-ray vancomycin discontinued We will reassess kidney function tomorrow morning. DVT Prophylaxis: Heparin subQ - Summary of Assessment and Plan Summary of Assessment and Plan: patient to remain in the hospital due to resolving sepsis. ANDREW. and hypercapnic respiratory failure. - Time Spent with Patient Total time spent is greater than 50% in coordination of care (as documented) at patient's floor/unit and/or counseling patient: Greater than 35 minutes (45) Plan of Care Discussed with: patient (his and the nurse.) Internal Medicine: Result - Labs CBC & Chem 7: 02/07/19 02:20 02/07/19 02:20 Labs: Short CBC 02/07/19 Range/Units 02:20 WBC 23.9 H (4.3-11.1) K/mcL Hgb 11.4 L (12.9-16.9) g/dL Hct 37.6 (37.5-50.1) % Plt Count 123 L (140-400) K/mcL Neutrophils # 20.5 H (1.6-8.9) K/mcL BMP 02/07/19 02:20 Sodium 136 Potassium 4.1 Chloride 103 Carbon Dioxide 24 BUN 28 H Creatinine 1.46 H Glucose 114 H Calcium 8.3 L - ABG Interpretation ABG results: ABG ABG pH 7.19 pH Units (7.32-7.45) L* 02/07/19 05:34 ABG pCO2 76 mmHg (35-45) H* 02/07/19 05:34 ABG pO2 77 mmHg (85-104) L 02/07/19 05:34 ABG O2 Saturation 91 % (95-98) L 02/07/19 05:34 - Impressions Impressions Chest X-Ray 02/06/19 13:25 IMPRESSION: Slight worsening of pleural and parenchymal opacity within the lower half left hemithorax over the past 2 days. The asymmetric distribution would favor left lower lobe pneumonia over asymmetric pulmonary edema. Possible dependent pulmonary edema or endobronchial spread of pneumonia right lower lobe. D/ / Hari Cruz MD / Hari Cruz MD Interpreting Provider: Hari Cruz MD Consult Discharge Plan - Plan Referrals: Patrice Tejeda MD [Primary Care Provider] - __ (1) Sepsis Qualifiers: Sepsis type: sepsis due to unspecified organism Qualified Code(s): A41.9 - Sepsis, unspecified organism (3) Catheter-associated urinary tract infection Qualifiers: Indwelling urinary catheter type: indwelling urethral catheter Encounter type: initial encounter Qualified Code(s): T83.511A - Infection and inflammatory reaction due to indwelling urethral catheter, initial encounter; N39.0 - Urinary tract infection, site not specified (4) LLL pneumonia Qualifiers: Pneumonia type: due to unspecified organism Qualified Code(s): J18.1 - Lobar pneumonia, unspecified organism (6) Atrial fibrillation Qualifiers: Atrial fibrillation type: chronic Qualified Code(s): I48.2 - Chronic atrial fibrillation (8) Hydrocele Qualifiers: Hydrocele type: unspecified Qualified Code(s): N43.3 - Hydrocele, unspecified
[2019-02-07 14:42] LABS: ABG Base Excess 0 mEq/L (-2 to 3); ABG HCO3 30 mEq/L (21-27); ABG Oxygen Saturation 98 % (95-98); ABG PCO2 77 mmHg (35-45); ABG PO2 127 mmHg (85-104); ABG TCO2 33 mEq/L (20-26); Blood Gas Modality NIV
[2019-02-07 17:29] LABS: ABG Base Excess 0 mEq/L (-2 to 3); ABG HCO3 29 mEq/L (21-27); ABG Oxygen Saturation 95 % (95-98); ABG PCO2 70 mmHg (35-45); ABG PH 7.23 pH Units (7.32-7.45); ABG PO2 92 mmHg (85-104); ABG TCO2 32 mEq/L (20-26); Blood Gas Modality BiLevel
[2019-02-08] MEDS: *HR* Heparin 5,000 UNIT/ML VIAL SQ SCH ×3 (05:31→20:01)
[2019-02-08 07:58] LABS: Basophils # 0.1 K/mcL (0.0-0.2); Basophils % 0.3 %; Eosinophils # 0.1 K/mcL (0.0-0.6); Eosinophils % 0.3 %; Hematocrit 35.6 % (37.5-50.1); Hemoglobin 10.9 g/dL (12.9-16.9); Immature Granulocytes % 0.9 % (0-4); Lymphocytes # 0.9 K/mcL (0.6-4.6); Mean Corpuscular HGB Conc 30.6 g/dL (31.6-35.5); Mean Corpuscular Hemoglobin 29.8 pg (28.0-33.3); Mean Corpuscular Volume 97.3 fL (83.0-100.0); Mean Platelet Volume 11.3 fL (9.4-12.4); Monocytes # 1.2 K/mcL (0.0-1.3); Monocytes % 6.7 %; Neutrophils # 16.1 K/mcL (1.6-8.9); Platelet Count 145 K/mcL (140-400); Red Blood Count 3.66 M/mcL (4.19-5.50); Red Cell Distribution Width 15.9 % (11.5-14.5); Segmented Neutrophils % 86.8 %
[2019-02-08 08:17] LABS: Calcium 8.7 mg/dL (8.6-10.3); Magnesium 2.1 mg/dL (1.6-2.6); Potassium 3.9 mEq/L (3.5-5.1)
[2019-02-08] MEDS: Piperacillin/Tazobactam 3.375 GM in 0.9 % Sodium Chloride Mini Bag 100 ML IVPB SCH ×2 (08:26→16:55)
[2019-02-08] MEDS: Ascorbic Acid 500 MG TABLET PO SCH (08:26)
[2019-02-08] MEDS: Loratadine 10 MG TABLET PO SCH (08:26)
[2019-02-08] MEDS: Aspirin Enteric Coated 81 MG Tablet PO SCH (08:26)
--- NOTE | 2019-02-08 11:53 | Urology Progress Note ---
Date of Encounter: 02/08/19 Time of Encounter: 11:49 - Assessment and Plan (1) Cellulitis of scrotum Current Visit: Yes Status: Acute (2) Acute renal insufficiency Current Visit: Yes Status: Acute Assessment and plan: See procedure note for catheter placement. He did obtain renal ultrasound. Patient has a solitary kidney with worsening renal function. Issues with his catheter. After cystoscopy I am now convinced the catheter is in his bladder. If he continues to have worsening renal function and any evidence of hydronephrosis would need to consider nephrostomy tube. Urine outputs may be unreliable with leakage around the catheter Progress Note Narrative: Patient remains on BiPAP. Issues with catheter leaking with minimal output Objective Initial Vital Signs Temp Pulse Resp BP Pulse Ox 98.7 F 76 15 115/83 94 02/04/19 20:46 02/04/19 20:46 02/04/19 20:46 02/04/19 20:46 02/04/19 20:46 - General physical appearance Present: no distress - Additional Exam Almost all scrotal erythema has resolved - Labs 02/08/19 07:48 02/08/19 07:48 Diabetes panel 02/08/19 Range/Units 07:48 Sodium 138 (136-145) mEq/L Potassium 3.9 (3.5-5.1) mEq/L Chloride 103 (98-107) mEq/L Carbon Dioxide 25 (23-29) mEq/L BUN 35 H (8-23) mg/dL Creatinine 1.50 H (0.70-1.30) mg/dL Glucose 81 (70-105) mg/dL Calcium 8.7 (8.6-10.3) mg/dL Calcium panel 02/08/19 02/08/19 Range/Units 07:48 07:48 Calcium 8.7 (8.6-10.3) mg/dL Phosphorus 2.9 (2.7-4.5) mg/dL Pituitary panel 02/08/19 Range/Units 07:48 Sodium 138 (136-145) mEq/L Potassium 3.9 (3.5-5.1) mEq/L Chloride 103 (98-107) mEq/L Carbon Dioxide 25 (23-29) mEq/L BUN 35 H (8-23) mg/dL Creatinine 1.50 H (0.70-1.30) mg/dL Glucose 81 (70-105) mg/dL Calcium 8.7 (8.6-10.3) mg/dL Adrenal panel 02/08/19 Range/Units 07:48 Sodium 138 (136-145) mEq/L Potassium 3.9 (3.5-5.1) mEq/L Chloride 103 (98-107) mEq/L Carbon Dioxide 25 (23-29) mEq/L BUN 35 H (8-23) mg/dL Creatinine 1.50 H (0.70-1.30) mg/dL Glucose 81 (70-105) mg/dL Calcium 8.7 (8.6-10.3) mg/dL Procedures:Urology - Cystoscopy Time out performed: Yes Reason for Cystoscopy: Catheter placement Preparation: Povidone-Iodine Irrigation Fluid Used: Yes (Sterile water) Patient tolerated procedure: well Additional comments: I attempted to place a catheter at his bedside with a zip wire but the zip wire continued to coil back suggesting it may not have entered his bladder. Because of this difficulty I elected to obtain a flexible cystoscope. I was able to guide the flexible cystoscope into the bladder. Patient had a small clot within the bladder and otherwise the bladder appeared to be low capacity. I passed a zip wire under direct vision. Despite passing the wire under direct vision into the bladder and continued to coil out the urethra. I removed the cystoscope and placed a 22-Portuguese catheter over the zip wire and inflated the balloon with 20 mL. Despite the issues with the wire I feel the catheter is in appropriate position. Consult Discharge Plan - Plan Referrals: Patrice Tejeda MD [Primary Care Provider] -
[2019-02-08 12:03] LABS: ABG Base Excess 0 mEq/L (-2 to 3); ABG HCO3 27 mEq/L (21-27); ABG Oxygen Saturation 95 % (95-98); ABG PCO2 54 mmHg (35-45); ABG PH 7.31 pH Units (7.32-7.45); ABG PO2 84 mmHg (85-104); ABG TCO2 29 mEq/L (20-26); Blood Gas PEEP 8 cm H2O; Blood Gas Respiration Rate 18
--- NOTE | 2019-02-08 12:34 | Internal Med Progress Note ---
Hospitalist Progress Note - Encounter Date of Encounter: 02/08/19 Time of Encounter: 12:31 - Subjective Interval History: I have seen and evaluated the patient at bedside. Patient in no distress, denies shortness of breath, somnolence, nausea or vomiting. denies chest pain or abdominal pain. - Exam Vitals: Temp Pulse Resp BP Pulse Ox 97.9 F 72 18 106/68 97 02/08/19 07:19 02/08/19 07:19 02/08/19 07:19 02/08/19 07:19 02/08/19 07:19 Exam: Vitals: reviewed General: Alert and oriented x3. In no distress Cardiovascular: RRR, normal S1 & S2, no rubs, murmurs or gallops. Lungs: decreased air entry b/l, no wheezes or crackles. Abdomen: Obese, soft, non-tender, no rigidity. ostomy bag. Extremities: paraplegic : scrotal erythema and edema Neurological: No acute focal neurological deficits Rest of the physical exam is non contributory - Assessment and Plan (1) Sepsis Current Visit: Yes Status: Resolved Assessment and Plan: septic picture on presentation resolved. Plan continue piperacillin/tazobactam 3.375mg/IV Q8HRs urine culture: ingram-sensitive pseudomonas Blood culture: no growth, pending final report IR consulted. for investigation of Tubular collection of fluid marginates the right femur posteriorly, measuring 8.5 cm x 2.[address] abd/pelvis, pending evaluation (2) Cellulitis of scrotum Current Visit: Yes Status: Acute Assessment and Plan: edema and erythema improving. on IV antibiotics (3) Catheter-associated urinary tract infection Current Visit: Yes Status: Acute Assessment and Plan: U/C: ingram-sensitive pseudomonas. on piperacillin/tazobactam (4) LLL pneumonia Current Visit: Yes Status: Acute Assessment and Plan: repeated chest x-ray yesterday with worsening pneumonia vs pulmonary edema. 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 s/p pacemaker. off anticoagulation and rate control medication continue telemetry monitoring (7) NAN on CPAP Current Visit: No Status: Chronic Assessment and Plan: nocturnal BiPap (8) Hydrocele Current Visit: Yes Status: Chronic Assessment and Plan: Plan of care per urology recommendations (9) Acute hypercapnic respiratory failure Current Visit: Yes Status: Acute Assessment and Plan: patient AOX. in no respiratory distress Plan continue bronchodilators repeat abg discontinue BiPap, start O2 by nasal cannula, titrate for O2 sat >88% Nocturnal Bipap. (10) ANDREW (acute kidney injury) Current Visit: No Status: Acute Assessment and Plan: worsening kidney function is multifactorial, possible due to obstructive uropathy, there is a concern from the urologist team the rasheed catheter was not in the right position. catheter reposition by urology. retro-peritoneal us ordered. nephrology consulted, patient with only one kidney. unable to start IV fluids due to pulm vascular congestion/edema on chest x-ray and patient with hypoxemia. will reassess kidney function tomorrow morning (11) CHF (congestive heart failure) Current Visit: Yes Status: Suspected Assessment and Plan: Limited Echo LVEF 60%. Borderline mild concentric left ventricular hypertrophy. Right ventricle is dilated. Function on this limited study is grossly normal. patient on furosemide 40mg/PO BID in the outpatient setting. held due to ANDREW and hypotension on presentation. (12) Decubitus ulcer of ischial area Current Visit: No Status: Chronic DVT Prophylaxis: on heparin subQ - Summary of Assessment and Plan Summary of Assessment and Plan: patient to remain in the hospital due to ANDREW. resolving sepsis - Time Spent with Patient Total time spent is greater than 50% in coordination of care (as documented) at patient's floor/unit and/or counseling patient: Greater than 35 minutes (40) Plan of Care Discussed with: patient (his and the nurse) Internal Medicine: Result - Labs CBC & Chem 7: 02/08/19 07:48 02/08/19 07:48 Labs: Short CBC 02/08/19 Range/Units 07:48 WBC 18.5 H (4.3-11.1) K/mcL Hgb 10.9 L (12.9-16.9) g/dL Hct 35.6 L (37.5-50.1) % Plt Count 145 (140-400) K/mcL Neutrophils # 16.1 H (1.6-8.9) K/mcL BMP 02/08/19 07:48 Sodium 138 Potassium 3.9 Chloride 103 Carbon Dioxide 25 BUN 35 H Creatinine 1.50 H Glucose 81 Calcium 8.7 - ABG Interpretation ABG results: ABG ABG pH 7.31 pH Units (7.32-7.45) L 02/08/19 11:57 ABG pCO2 54 mmHg (35-45) H 02/08/19 11:57 ABG pO2 84 mmHg (85-104) L 02/08/19 11:57 ABG O2 Saturation 95 % (95-98) 02/08/19 11:57 - Impressions Impressions Chest X-Ray 02/07/19 12:04 IMPRESSION: 1. Congestive heart failure. 2. Left basilar consolidation and left pleural effusion are presumably related to congestive heart failure, however pneumonia is a consideration as well. 3. Calcific atherosclerosis aorta. 4. Cardiomegaly. D/ / Herbert Moseley / Herbert Moseley Interpreting Provider: Herbert Moseley Consult Discharge Plan - Plan Referrals: Patrice Tejeda MD [Primary Care Provider] - (1) Sepsis Qualifiers: Sepsis type: sepsis due to unspecified organism Qualified Code(s): A41.9 - Sepsis, unspecified organism (3) Catheter-associated urinary tract infection Qualifiers: Indwelling urinary catheter type: indwelling urethral catheter Encounter type: initial encounter Qualified Code(s): T83.511A - Infection and inflammatory reaction due to indwelling urethral catheter, initial encounter; N39.0 - Urinary tract infection, site not specified (4) LLL pneumonia Qualifiers: Pneumonia type: due to unspecified organism Qualified Code(s): J18.1 - Lobar pneumonia, unspecified organism (6) Atrial fibrillation Qualifiers: Atrial fibrillation type: chronic Qualified Code(s): I48.2 - Chronic atrial fibrillation (8) Hydrocele Qualifiers: Hydrocele type: unspecified Qualified Code(s): N43.3 - Hydrocele, unspecified (11) CHF (congestive heart failure) Qualifiers: Heart failure type: unspecified Heart failure chronicity: unspecified Qualified Code(s): I50.9 - Heart failure, unspecified (12) Decubitus ulcer of ischial area Qualifiers: Pressure injury stage: unspecified pressure injury stage Laterality: left Qualified Code(s): L89.329 - Pressure ulcer of left buttock, unspecified stage
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
[2019-02-08 19:14] LABS: Uric Acid 6.5 mg/dL (2.3-7.6)
[2019-02-08] MEDS: traZODone 50 MG TABLET PO SCH (20:01)
[2019-02-09] MEDS: Piperacillin/Tazobactam 3.375 GM in 0.9 % Sodium Chloride Mini Bag 100 ML IVPB SCH ×3 (00:18→17:51)
[2019-02-09] MEDS: *HR* Heparin 5,000 UNIT/ML VIAL SQ SCH ×3 (05:10→21:07)
--- NOTE | 2019-02-09 07:24 | Urology Progress Note ---
Date of Encounter: 02/09/19 Time of Encounter: 07:21 - Assessment and Plan (1) Cellulitis of scrotum Current Visit: Yes Status: Acute (2) Acute renal insufficiency Current Visit: Yes Status: Acute Assessment and plan: output unreliable. BUN/Cr pending today. renal ultrasound pending today. discussed possible nephrostomy with nephrology yesterday. recs to follow Progress Note Narrative: continued leakage around the cath but some UO as well. Objective Initial Vital Signs Temp Pulse Resp BP Pulse Ox 98.7 F 76 15 115/83 94 02/04/19 20:46 02/04/19 20:46 02/04/19 20:46 02/04/19 20:46 02/04/19 20:46 - Additional Exam urine in rasheed clear. - Labs 02/08/19 07:48 02/08/19 07:48 Diabetes panel 02/08/19 Range/Units 07:48 Sodium 138 (136-145) mEq/L Potassium 3.9 (3.5-5.1) mEq/L Chloride 103 (98-107) mEq/L Carbon Dioxide 25 (23-29) mEq/L BUN 35 H (8-23) mg/dL Creatinine 1.50 H (0.70-1.30) mg/dL Glucose 81 (70-105) mg/dL Calcium 8.7 (8.6-10.3) mg/dL Calcium panel 02/08/19 02/08/19 Range/Units 07:48 07:48 Calcium 8.7 (8.6-10.3) mg/dL Phosphorus 2.9 (2.7-4.5) mg/dL Pituitary panel 02/08/19 Range/Units 07:48 Sodium 138 (136-145) mEq/L Potassium 3.9 (3.5-5.1) mEq/L Chloride 103 (98-107) mEq/L Carbon Dioxide 25 (23-29) mEq/L BUN 35 H (8-23) mg/dL Creatinine 1.50 H (0.70-1.30) mg/dL Glucose 81 (70-105) mg/dL Calcium 8.7 (8.6-10.3) mg/dL Adrenal panel 02/08/19 Range/Units 07:48 Sodium 138 (136-145) mEq/L Potassium 3.9 (3.5-5.1) mEq/L Chloride 103 (98-107) mEq/L Carbon Dioxide 25 (23-29) mEq/L BUN 35 H (8-23) mg/dL Creatinine 1.50 H (0.70-1.30) mg/dL Glucose 81 (70-105) mg/dL Calcium 8.7 (8.6-10.3) mg/dL Consult Discharge Plan - Plan Referrals: Patrice Tejeda MD [Primary Care Provider] -
[2019-02-09] MEDS: Loratadine 10 MG TABLET PO SCH (08:27)
[2019-02-09] MEDS: Aspirin Enteric Coated 81 MG Tablet PO SCH (08:27)
[2019-02-09] MEDS: Ascorbic Acid 500 MG TABLET PO SCH (08:27)
[2019-02-09 08:30] LABS: Basophils % 0.3 %; Eosinophils # 0.1 K/mcL (0.0-0.6); Eosinophils % 0.3 %; Hematocrit 36.3 % (37.5-50.1); Hemoglobin 11.3 g/dL (12.9-16.9); Immature Granulocytes % 1.5 % (0-4); Lymphocytes # 0.9 K/mcL (0.6-4.6); Lymphocytes % 5.9 %; Mean Corpuscular HGB Conc 31.1 g/dL (31.6-35.5); Mean Corpuscular Hemoglobin 29.8 pg (28.0-33.3); Mean Corpuscular Volume 95.8 fL (83.0-100.0); Mean Platelet Volume 10.8 fL (9.4-12.4); Monocytes # 1.4 K/mcL (0.0-1.3); Monocytes % 9.1 %; Platelet Count 145 K/mcL (140-400); Red Blood Count 3.79 M/mcL (4.19-5.50); Red Cell Distribution Width 15.9 % (11.5-14.5); Segmented Neutrophils % 82.9 %
[2019-02-09 11:01] LABS: BUN/Creatinine Ratio 25 (6-26); Blood Urea Nitrogen 31 mg/dL (8-23); Calcium 8.6 mg/dL (8.6-10.3); Carbon Dioxide 28 mEq/L (23-29); Chloride 105 mEq/L (98-107); Glucose 80 mg/dL (70-105); Magnesium 2.1 mg/dL (1.6-2.6); Osmolality,Calculated 300 (280-300); Phosphorous 2.2 mg/dL (2.7-4.5); Potassium 3.6 mEq/L (3.5-5.1); Sodium 142 mEq/L (136-145); eGFR For Non-African Americans 58 (> 60)
[2019-02-09] MEDS ORDERED: Furosemide 20 MG TABLET PO SCH (12:00)
--- NOTE | 2019-02-09 12:00 | Internal Med Progress Note ---
Hospitalist Progress Note - Encounter Date of Encounter: 02/09/19 Time of Encounter: 11:58 - Subjective Interval History: I have seen and evaluated the patient at bedside. patient more alert and awake, in no distress, denies chest pain, nausea, vomiting or abdominal pain. - Exam Vitals: Temp Pulse Resp BP Pulse Ox 97.7 F 103 16 111/75 93 02/09/19 11:20 02/09/19 11:20 02/09/19 11:20 02/09/19 11:20 02/09/19 11:20 Exam: Vitals: reviewed General: Alert and oriented x4. In no distress Cardiovascular: RRR, normal S1 & S2, no rubs, murmurs or gallops. Lungs: decreased air entry b/l, no wheezes or crackles. Abdomen: Obese, soft, non-tender, no rigidity. ostomy bag. NABS in all 4 quadrants Extremities: paraplegic : scrotal erythema and edema improving Neurological: No acute focal neurological deficits Rest of the physical exam is non contributory - Assessment and Plan (1) Sepsis Current Visit: Yes Status: Resolved Assessment and Plan: septic picture on presentation resolved. Plan continue piperacillin/tazobactam 3.375mg/IV Q8HRs urine culture: ingram-sensitive pseudomonas Blood culture: no growth, pending final report IR called for investigation of Tubular collection of fluid marginates the right femur posteriorly, measuring 8.5 cm x 2.[address] abd/pelvis as per patient's the patient had a wound in the left hep area and had a flap insertion at [facility] in October 2018, during that admission they believe the patient had infection in the bone was treated with IV antibiotics for 6 weeks. per patient's he also received antibiotics pellets in the joint. will consult ID for antibiotics management (2) Cellulitis of scrotum Current Visit: Yes Status: Acute Assessment and Plan: patient on piperacillin/tazobactam 3.375mg/IV Q8HRs (3) Catheter-associated urinary tract infection Current Visit: Yes Status: Acute Assessment and Plan: U/C: ingram-sensitive pseudomonas. continue piperacillin/tazobactam (4) LLL pneumonia Current Visit: Yes Status: Acute Assessment and Plan: sputum cultured ordered. 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 s/p pacemaker. telemetry monitoring (7) NAN on CPAP Current Visit: No Status: Chronic Assessment and Plan: on nocturnal Bipap. (8) Hydrocele Current Visit: Yes Status: Chronic Assessment and Plan: Plan of care per urology recommendations (9) Acute hypercapnic respiratory failure Current Visit: Yes Status: Acute Assessment and Plan: patient with significant improvement on respiratory status. no wheezing on auscultation. continue bronchodilators Q4RT scheduled. incentive spirometry (10) ANDREW (acute kidney injury) Current Visit: No Status: Suspected Assessment and Plan: renal function improving. retroperitoneal US: no hydronephrosis. (11) CHF (congestive heart failure) Current Visit: Yes Status: Suspected Assessment and Plan: fluids restrictive diet to 1.5 litters a day. will resume low dose of furosemide 20mg/PO daily. daily weight, plus strict intake and output. (12) Decubitus ulcer of ischial area Current Visit: No Status: Chronic Assessment and Plan: care per wound care DVT Prophylaxis: On heparin subQ - Summary of Assessment and Plan Summary of Assessment and Plan: patient to remain in the hospital for resolving sepsis. hypercapnic repiratory failure . potential discharge in 1-2 days. - Time Spent with Patient Total time spent is greater than 50% in coordination of care (as documented) at patient's floor/unit and/or counseling patient: Greater than 35 minutes (45) Plan of Care Discussed with: patient (his and the nurse) Internal Medicine: Result - Labs CBC & Chem 7: 02/09/19 08:15 02/09/19 10:21 Labs: Short CBC 02/09/19 Range/Units 08:15 WBC 15.6 H (4.3-11.1) K/mcL Hgb 11.3 L (12.9-16.9) g/dL Hct 36.3 L (37.5-50.1) % Plt Count 145 (140-400) K/mcL Neutrophils # 13.0 H (1.6-8.9) K/mcL BMP 02/09/19 10:21 Sodium 142 Potassium 3.6 Chloride 105 Carbon Dioxide 28 BUN 31 H Creatinine 1.25 Glucose 80 Calcium 8.6 - ABG Interpretation ABG results: ABG ABG pH 7.31 pH Units (7.32-7.45) L 02/08/19 11:57 ABG pCO2 54 mmHg (35-45) H 02/08/19 11:57 ABG pO2 84 mmHg (85-104) L 02/08/19 11:57 ABG O2 Saturation 95 % (95-98) 02/08/19 11:57 - Impressions Impressions Retroperitoneum Ultrasound 02/09/19 09:00 IMPRESSION: Right renal cyst. The patient has undergone previous left nephrectomy. The bladder was not imaged as it was decompressed on the Ulloa catheter at the time of imaging. D/ / 02/09/2019 11:00:02 Maykel Kendall MD / dimas Interpreting Provider: Maykel Kendall MD Consult Discharge Plan - Plan Referrals: Patrice Tejeda MD [Primary Care Provider] - (1) Sepsis Qualifiers: Sepsis type: sepsis due to unspecified organism Qualified Code(s): A41.9 - Sepsis, unspecified organism (3) Catheter-associated urinary tract infection Qualifiers: Indwelling urinary catheter type: indwelling urethral catheter Encounter typ e: initial encounter Qualified Code(s): T83.511A - Infection and inflammatory reaction due to indwelling urethral catheter, initial encounter; N39.0 - Urinary tract infection, site not specified (4) LLL pneumonia Qualifiers: Pneumonia type: due to unspecified organism Qualified Code(s): J18.1 - Lobar pneumonia, unspecified organism (6) Atrial fibrillation Qualifiers: Atrial fibrillation type: chronic Qualified Code(s): I48.2 - Chronic atrial fibrillation (8) Hydrocele Qualifiers: Hydrocele type: unspecified Qualified Code(s): N43.3 - Hydrocele, unspecified (11) CHF (congestive heart failure) Qualifiers: Heart failure type: unspecified Heart failure chronicity: unspecified Qualified Code(s): I50.9 - Heart failure, unspecified (12) Decubitus ulcer of ischial area Qualifiers: Pressure injury stage: unspecified pressure injury stage Laterality: left Qualified Code(s): L89.329 - Pressure ulcer of left buttock, unspecified stage
--- NOTE | 2019-02-09 12:58 | Nephrology Progress Note ---
Date of Encounter: 02/09/19 Time of Encounter: 12:00 - Assessment and Plan (1) ANDREW (acute kidney injury) Current Visit: No Status: Suspected SCr improved at 1.2, GFR UOP not documented (2) Acute hypercapnic respiratory failure Current Visit: Yes Status: Acute (3) Catheter-associated urinary tract infection Current Visit: Yes Status: Acute Qualifiers: Indwelling urinary catheter type: indwelling urethral catheter Encounter type: initial encounter Qualified Code(s): T83.511A - Infection and inflammatory reaction due to indwelling urethral catheter, initial encounter; N39.0 - Urinary tract infection, site not specified (4) Cellulitis of scrotum Current Visit: Yes Status: Acute (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 (6) History of nephrectomy Current Visit: No Status: Acute Subjective Interval history: Pt seen and examined Objective - Vital Signs Vital signs: Vital Signs Temp Pulse Resp BP Pulse Ox 02/09/19 11:20 97.7 F 103 16 111/75 93 02/09/19 06:29 98.0 F 75 24 173/113 98 02/09/19 04:29 98.5 F 87 16 136/73 96 02/09/19 00:34 18 150/94 98 02/08/19 23:37 99.4 F 83 17 150/94 98 02/08/19 22:02 18 98/59 97 02/08/19 16:31 98.5 F 86 18 98/59 97 02/08/19 13:06 97.7 F 99 16 118/62 95 Intake and Output 02/08/19 02/09/19 02/09/19 23:59 07:59 15:59 Intake Total 160 / 840 100 / 200 100 / 200 Balance 160 / 840 100 / 200 100 / 200 Intake: IV Fluids 100 / 300 100 / 100 Zosyn 3.375 GM In 0.9 % Sodium 100 / 300 100 / 100 Chloride (Mini-Bag +) 100 ML @ 25 mls/hr IVPB Q8HR VERONICA Rx#: [id number] Oral 60 / 540 100 / 100 Other: Meal Dinner Lunch Percent of Meal Consumed 15% 15% # Urine Diapers 1 Blood Glucose* 83 - Lab 02/09/19 08:15 02/09/19 10:21 Most recent lab results 02/09/19 10:21 Calcium 8.6 Phosphorus 2.2 L Magnesium 2.1 Consult Discharge Plan - Plan Referrals: Patrice Tejeda MD [Primary Care Provider] -
--- NOTE | 2019-02-09 14:11 | Infectious Disease Consult ---
Infectious Disease-Consult - Encounter Date/Time Date of Encounter: 02/09/19 Time of Encounter: 14:08 - Data of Consult Patient: new to practice Reason for consult: "sepsis. recently treated for sepsis joint. Tubular collection of fluid marginates the right femur posteriorly, measuring 8.5 cm x 2.[address] abd/pelvis" Consult date: 02/09/19 Requesting Physician: Rd Batista MD Primary Care Provider: Patrice Tejeda MD - HPI HPI: Patient is a 68-year-old gentleman who is not the best historian presented to [place] on 02/04/2019 with scrotal swelling and fever. We are consulted on 2018 for antibiotic recommendations. Patient is a 68-year-old gentleman with past medical history mentioned below including paraplegia at the level of T7, CHF, COPD and history of cancer of the kidney a year 1999 presented apparently with fever and scrotal redness and swelling. Based on the patient he tells me he has had the scrotal swelling for months but records say otherwise. Patient also has a neurogenic bladder with indwelling Ulloa catheter. Apparently patient was having fevers at home. Exact details are not known because the patient is not the best historian. Since admission, patient has been afebrile, tachycardic without tachypnea. Otherwise hemodynamically stable. Presenting labs revealed a WBC of 23.7 with 83% neutrophils no bands. Chemistry revealed a BUN of 19, creatinine 0.91 lactic acidosis 0.9. Bilirubin was elevated with a total bilirubin of 1.8 AST of 9 ALT of 5 and alkaline phosphatase of 105. A urinalysis was obtained and it revealed pyuria, large leukocyte esterase. The urine culture grew pseudomonas aeruginosa that was pansensitive. Patient blood cultures from 02/04/2019 2 out of 2 sets were negative. Imaging included an ultrasound of the scrotum which revealed large complex left hydrocele. Differential consideration includes hematocele versus pyocele. Chest x-ray was obtained which revealed left sided airspace disease and effusion meropenem present pneumonia. CT abdomen and pelvis revealed fluid is seen in the scrotum was overlying skin thickening no obvious soft tissue gas. Asymmetric injection of the fat is seen surrounding the proximal right and left Focal fluid collection is seen posterior to the right femur the sterility of which is indeterminate. Small pleural effusion with adjacent airspace disease concerning for atelectasis versus pneumonia. Fluid in the right hip get aspirated and a total of 25 mL of straw-colored fluid was removed and sent for multiple diagnostic tests - ROS Review of Systems: 10 point review of systems done, negative other for what mentioned in the histo ry of present illness - Results CBC & Chem 7: 02/09/19 08:15 02/09/19 10:21 - Exam Vitals: Temp Pulse Resp BP Pulse Ox 97.7 F 92 16 126/70 95 02/09/19 11:20 02/09/19 13:37 02/09/19 11:20 02/09/19 13:37 02/09/19 13:37 Exam: Gen. laying in bed awake alert comfortable no acute distress HEAD: Normocephalic atraumatic EYES: PERRLA, EOMI, no conjunctival hemorrhage, sclera anicteric ENT: Mucous membranes moist, no oral thrush NECK: Supple. No meningeal signs. No masses LUNGS: Chest expanding symmetrically. Lungs sounds audible both lung tirado. No wheezing, no rhonchi CV: RRR, S1S2, ABDOMEN: Soft, nontender, nondistended. Bowel sounds audible Pelvis: Significant scrotal swelling/hydrocele with erythema concerning for cellulitis EXTREMITY: Adequate perfusion. Has contractures of his fingers left upper extremity SKIN: Normal color. No rash. NEURO: Awake alert oriented 3. No obvious focal deficit PSYCH: Calm and appropriate. No agitation. Ascorbate Calcium [Vitamin C] 500 mg PO DAILY 04/12/18 [History] Aspirin [Lo-Dose Aspirin EC] 81 mg PO DAILY 04/12/18 [History] Cetirizine HCl [Zyrtec] 10 mg PO DAILY 04/12/18 [History] Furosemide [Lasix] 40 mg PO BID 04/12/18 [History] Dantrolene Sodium 100 mg PO TID PRN 02/05/19 [History] traZODone [TraZODone] 100 mg PO HS PRN 02/05/19 [History] Allergy/AdvReac Type Severity Reaction Status Date / Time latex Allergy Rash Verified 04/11/18 22:23 Sulfa (Sulfonamide Allergy Difficulty Verified 11/30/16 13:00 Antibiotics) Breathing - Assessment and Plan (1) Sepsis Current Visit: Yes Status: Resolved Had 2 SIRS criteria on admission Likely secondary to cellulitis of the scrotum and urinary tract infection. Although pneumonia is also on the differential. Low index of suspicion for osteomyelitis of the decubitus ulcer right now but if the ESR does not improve in the patient clinically continues to have leukocytosis we might have to reevaluate Qualifiers: Sepsis type: sepsis due to unspecified organism Qualified Code(s): A41.9 - Sepsis, unspecified organism SNOMED Code(s): 82366958 (2) Catheter-associated urinary tract infection Current Visit: Yes Status: Acute Causative organism pansensitive pseudomonas aeruginosa Patient is already on Zosyn Continue Zosyn duration of treatment depends on the clinical picture Qualifiers: Indwelling urinary catheter type: indwelling urethral catheter Encounter type: initial encounter Qualified Code(s): T83.511A - Infection and inflammatory reaction due to indwelling urethral catheter, initial encounter; N39.0 - Urinary tract infection, site not specified SNOMED Code(s): 436477702 (3) Cellulitis of scrotum Current Visit: Yes Status: Acute Concern for staph and strep and skin jourdan causing the cellulitis We will start empiric vancomycin SNOMED Code(s): 01132018 (4) LLL pneumonia Current Visit: Yes Status: Acute Heart to really evaluate based on the patient's body habitus. Patient already on vancomycin and Zosyn Qualifiers: Pneumonia type: due to unspecified organism Qualified Code(s): J18.1 - Lobar pneumonia, unspecified organism SNOMED Code(s): 106152252 (5) Hydrocele Current Visit: Yes Status: Chronic Ultrasound states possible hematocele versus pyocele Patient was evaluated by urology; appreciate their input They stated that they would rather wait before they drained the fluid because they are concerned of introducing infection and I think that is pretty reasonable Qualifiers: Hydrocele type: unspecified Qualified Code(s): N43.3 - Hydrocele, unspecified SNOMED Code(s): 75039491, 017459147 (6) History of nephrectomy Current Visit: No Status: Acute Due to malignancy in the year 1999 SNOMED Code(s): 64359554332321 (7) Chronic indwelling Ulloa catheter Current Visit: Yes Status: Chronic SNOMED Code(s): 392073828 Past Med Surg Social Fam HX - Past Medical History Medical history: cancer, CHF, COPD Additional medical history: Paraplegic. kidney cancer (1999) Psychiatric history: no psych history - Past Surgical History Surgical History: cancer surgery, cholecystectomy, colostomy, pacemaker/AICD, other Additional surgical history: colostomy,left nephrectomy, chronic catheter. wound surgery - Social History Smoking Status: Never smoker Smokeless Tobacco Status: No Alcohol use: none Drug use: none - Family History Mother Living Status: Father Family Member Ethnicity: Non- Living Status: Hx Family Cardiac Disorders: No Hx Family Respiratory Disorders: No Hx Family Cancer: Yes Hx Family GI Disorders: No Hx Family Endocrine Disorder: Yes Hx Family Neuromuscular Disorders: No Hx Family Neurologic Disorders: Yes Hx Family HEENT Disorders: No Hx Family Autoimmune Disorders: No Brother Hx Family GI Disorders: Yes Consult Discharge Plan - Plan Referrals: Patrice Tejeda MD [Primary Care Provider] -
[2019-02-09] MEDS: traZODone 50 MG TABLET PO SCH (21:07)
[2019-02-10] MEDS: Piperacillin/Tazobactam 3.375 GM in 0.9 % Sodium Chloride Mini Bag 100 ML IVPB SCH ×4 (00:32→23:49)
[2019-02-10] MEDS: *HR* Heparin 5,000 UNIT/ML VIAL SQ SCH ×3 (06:28→21:31)
[2019-02-10 06:49] LABS: Basophils % 0.3 %; Eosinophils # 0.1 K/mcL (0.0-0.6); Eosinophils % 0.6 %; Hematocrit 34.2 % (37.5-50.1); Hemoglobin 10.5 g/dL (12.9-16.9); Immature Granulocytes % 1.6 % (0-4); Lymphocytes % 6.9 %; Mean Corpuscular HGB Conc 30.7 g/dL (31.6-35.5); Mean Corpuscular Hemoglobin 29.5 pg (28.0-33.3); Mean Corpuscular Volume 96.1 fL (83.0-100.0); Mean Platelet Volume 10.5 fL (9.4-12.4); Monocytes # 1.4 K/mcL (0.0-1.3); Monocytes % 10.2 %; Neutrophils # 11.2 K/mcL (1.6-8.9); Platelet Count 157 K/mcL (140-400); Red Blood Count 3.56 M/mcL (4.19-5.50); Red Cell Distribution Width 15.7 % (11.5-14.5); Segmented Neutrophils % 80.4 %
[2019-02-10 07:32] LABS: BUN/Creatinine Ratio 25 (6-26); Blood Urea Nitrogen 27 mg/dL (8-23); Calcium 8.4 mg/dL (8.6-10.3); Carbon Dioxide 27 mEq/L (23-29); Chloride 105 mEq/L (98-107); Glucose 77 mg/dL (70-105); Osmolality,Calculated 300 (280-300); Phosphorous 2.6 mg/dL (2.7-4.5); Potassium 3.5 mEq/L (3.5-5.1); Sodium 143 mEq/L (136-145); eGFR For Non-African Americans > 60 (> 60)
--- NOTE | 2019-02-10 10:05 | Urology Progress Note ---
<Violeta Schmitt N - Last Filed: 02/10/19 10:03> Date of Encounter: 02/10/19 Time of Encounter: 09:10 - Assessment and Plan (1) Cellulitis of scrotum Current Visit: Yes Status: Acute Assessment and plan: Patient is a 68-year-old male who presents with scrotal cellulitis. Vital signs are stable and afebrile. Patient is receiving IV Zosyn and vancomycin. (2) Acute renal insufficiency Current Visit: Yes Status: Acute Assessment and plan: Patient is a 68-year-old male who presents with acute renal insufficiency. Coco ent underwent reassuring renal ultrasound, and serum creatinine this greatly improved to 1.06. Patient will not require nephrostomy tube placement. (3) Catheter-associated urinary tract infection Current Visit: Yes Status: Acute Assessment and plan: Patient is a 68-year-old male who presents with catheter associated urinary tract infection, culture positive for pansensitive pseudomonas aeruginosa. P atient is receiving IV Zosyn and vancomycin. Qualifiers: Indwelling urinary catheter type: indwelling urethral catheter Encounter type: initial encounter Qualified Code(s): T83.511A - Infection and inflammatory reaction due to indwelling urethral catheter, initial encounter; N39.0 - Urinary tract infection, site not specified Progress Note Narrative: Patient seen and examined lying in bed in no apparent distress. Ulloa catheter indwelling and draining transparent, clear yellow urine into bedside bag. Objective Initial Vital Signs Temp Pulse Resp BP Pulse Ox 98.7 F 76 15 115/83 94 02/04/19 20:46 02/04/19 20:46 02/04/19 20:46 02/04/19 20:46 02/04/19 20:46 - General physical appearance Present: no distress, no pain - Respiratory Present: normal expansion, normal respiratory effort - Abdomen Absent: distended - Genitourinary Urine Appearance: Present: Clear - Integumentary Present: no rash, no abnormal pigmentation - Musculoskeletal Present: normal posture - Psychiatric Present: other (Patient sleeping.) - Labs 02/10/19 04:00 02/10/19 04:00 Diabetes panel 02/09/19 02/10/19 Range/Units 10:21 04:00 Sodium 142 143 (136-145) mEq/L Potassium 3.6 3.5 (3.5-5.1) mEq/L Chloride 105 105 (98-107) mEq/L Carbon Dioxide 28 27 (23-29) mEq/L BUN 31 H 27 H (8-23) mg/dL Creatinine 1.25 1.06 (0.70-1.30) mg/dL Glucose 80 77 (70-105) mg/dL Calcium 8.6 8.4 L (8.6-10.3) mg/dL Calcium panel 02/09/19 02/10/19 Range/Units 10:21 04:00 Calcium 8.6 8.4 L (8.6-10.3) mg/dL Phosphorus 2.2 L 2.6 L (2.7-4.5) mg/dL Pituitary panel 02/09/19 02/10/19 Range/Units 10:21 04:00 Sodium 142 143 (136-145) mEq/L Potassium 3.6 3.5 (3.5-5.1) mEq/L Chloride 105 105 (98-107) mEq/L Carbon Dioxide 28 27 (23-29) mEq/L BUN 31 H 27 H (8-23) mg/dL Creatinine 1.25 1.06 (0.70-1.30) mg/dL Glucose 80 77 (70-105) mg/dL Calcium 8.6 8.4 L (8.6-10.3) mg/dL Adrenal panel 02/09/19 02/10/19 Range/Units 10:21 04:00 Sodium 142 143 (136-145) mEq/L Potassium 3.6 3.5 (3.5-5.1) mEq/L Chloride 105 105 (98-107) mEq/L Carbon Dioxide 28 27 (23-29) mEq/L BUN 31 H 27 H (8-23) mg/dL Creatinine 1.25 1.06 (0.70-1.30) mg/dL Glucose 80 77 (70-105) mg/dL Calcium 8.6 8.4 L (8.6-10.3) mg/dL Consult Discharge Plan - Plan Referrals: Patrice Tejeda MD [Primary Care Provider] - <Dennis Alfaro - Last Filed: 02/11/19 07:21> Date of Encounter: 02/11/19 - Assessment and Plan (1) Cellulitis of scrotum Current Visit: Yes Status: Acute (2) Acute renal insufficiency Current Visit: Yes Status: Acute Assessment and plan: Agree with physician assistants assessment and plan. Significant improvement in renal function. Renal ultrasound without hydronephrosis and his solitary kidney. No need for nephrostomy tube. I suspect his renal insufficiency was intrinsic. Patient continues to have large hydrocele but I do not feel that it is infectious or a pyocele. Okay to observe. Objective Initial Vital Signs Temp Pulse Resp BP Pulse Ox 98.7 F 76 15 115/83 94 02/04/19 20:46 02/04/19 20:46 02/04/19 20:46 02/04/19 20:46 02/04/19 20:46 - Labs 02/11/19 04:35 02/11/19 04:35 Diabetes panel 02/10/19 02/11/19 Range/Units 04:00 04:35 Sodium 143 142 (136-145) mEq/L Potassium 3.5 3.4 L (3.5-5.1) mEq/L Chloride 105 107 (98-107) mEq/L Carbon Dioxide 27 30 H (23-29) mEq/L BUN 27 H 22 (8-23) mg/dL Creatinine 1.06 1.02 (0.70-1.30) mg/dL Glucose 77 101 (70-105) mg/dL Calcium 8.4 L 8.1 L (8.6-10.3) mg/dL Calcium panel 02/10/19 02/11/19 Range/Units 04:00 04:35 Calcium 8.4 L 8.1 L (8.6-10.3) mg/dL Phosphorus 2.6 L 2.6 L (2.7-4.5) mg/dL Pituitary panel 02/10/19 02/11/19 Range/Units 04:00 04:35 Sodium 143 142 (136-145) mEq/L Potassium 3.5 3.4 L (3.5-5.1) mEq/L Chloride 105 107 (98-107) mEq/L Carbon Dioxide 27 30 H (23-29) mEq/L BUN 27 H 22 (8-23) mg/dL Creatinine 1.06 1.02 (0.70-1.30) mg/dL Glucose 77 101 (70-105) mg/dL Calcium 8.4 L 8.1 L (8.6-10.3) mg/dL Adrenal panel 02/10/19 02/11/19 Range/Units 04:00 04:35 Sodium 143 142 (136-145) mEq/L Potassium 3.5 3.4 L (3.5-5.1) mEq/L Chloride 105 107 (98-107) mEq/L Carbon Dioxide 27 30 H (23-29) mEq/L BUN 27 H 22 (8-23) mg/dL Creatinine 1.06 1.02 (0.70-1.30) mg/dL Glucose 77 101 (70-105) mg/dL Calcium 8.4 L 8.1 L (8.6-10.3) mg/dL
--- NOTE | 2019-02-10 10:35 | Infectious Disease Progress No ---
ID Progress Note Date of Encounter: 02/10/19 Time of Encounter: 10:32 - Subjective Subjective: Agency and examined. No acute events noted overnight. Patient states overall he feels well. States he is much less confused today and feels better. Denies fevers, chills, or rigors. Denies chest pain, shortness of breath, or cough. Denies nausea, vomiting, diarrhea, or constipation. Ulloa catheter remains patent, but the patient states it has been leaking. Denies abdominal pain. Denies oral thrush or new skin lesions. States his appetite is okay. - Objective CBC & Chem 7: 02/11/19 04:35 02/11/19 04:35 - Line Documentation Line Documentation: Ulloa Catheter (Draining clear yellow urine.) - Exam Vitals: Temp Pulse Resp BP Pulse Ox 97.7 F 88 16 119/64 90 02/10/19 06:48 02/10/19 06:48 02/10/19 06:48 02/10/19 06:48 02/10/19 06:48 Exam: Head: Atraumatic, normal inspection, normocephalic. Eye: EOMI, PERRLA, no scleral icterus noted. ENT: Mucous membranes moist. No odontogenic infection noted. Neck: Normal inspection, no meningismus. Respiratory: Clear to auscultation. No rales, respiratory distress, rhonchi, or wheezes noted. Cardiovascular: Regular rate and rhythm, S1 and S2 audible. No murmurs, rubs, or gallops. GI: Soft, nondistended, normal bowel sounds. Colostomy noted to the left lower quadrant with liquid brown stool noted. Ulloa catheter noted to be draining clear yellow urine. Extremities: No joint swelling or tenderness noted. 1+ edema noted to the BLE. Neurological: Alert, oriented 3,. Paralysis noted to the BLE. Diminished sensation noted from mid-abdomen down. Psychiatric: normal affect, normal mood. Skin: Dry, intact, warm. Normal color. No rashes. - Assessment and Plan (1) Sepsis Current Visit: Yes Status: Resolved The patient had two SIRS criteria on admission. Likely secondary to scrotal cellulitis and UTI and pneumonia. Improved. White blood cell count trending down. Afebrile overnight. Blood cultures drawn 02/04/19 are negative 2 sets. Qualifiers: Sepsis type: sepsis due to unspecified organism Qualified Code(s): A41.9 - Sepsis, unspecified organism SNOMED Code(s): 11029326 (2) LLL pneumonia Current Visit: Yes Status: Acute Causative organism: Unclear. Location: Left lower lobe Chest x-ray showed findings concerning for left lower lobe pneumonia and effusion. CT of the abdomen and pelvis showed a small pleural effusion with adjacent airspace disease, either atelectasis or pneumonia. Aspiration is low on the differential. Currently on vancomycin and Zosyn. Qualifiers: Pneumonia type: due to unspecified organism Qualified Code(s): J18.1 - Lobar pneumonia, unspecified organism SNOMED Code(s): 894842630 (3) Catheter-associated urinary tract infection Current Visit: Yes Status: Acute Causative organism: pansensitive pseudomonas aeruginosa. Ulloa catheter exchanged by the urology team. Currently on Zosyn. Qualifiers: Indwelling urinary catheter type: indwelling urethral catheter Encounter type: initial encounter Qualified Code(s): T83.511A - Infection and inflammatory reaction due to indwelling urethral catheter, initial encounter; N39.0 - Urinary tract infection, site not specified SNOMED Code(s): 191103489 (4) Cellulitis of scrotum Current Visit: Yes Status: Acute CT of the abdomen and pelvis shows fluid seen within the scrotum with overlying skin thickening with no obvious soft tissue gas. Causative organism: Unclear. Concern for staph and strep and skin jourdan causing the cellulitis. Urology consult and following. Currently on vancomycin and Zosyn. SNOMED Code(s): 75850766 (5) Hydrocele Current Visit: Yes Status: Chronic Ultrasound states possible hematocele versus pyocele. Patient was evaluated by urology; appreciate their input. They stated that they would rather wait before they drained the fluid because they are concerned of introducing infection and I think that is pretty reasonable. Currently on vancomycin and Zosyn. Qualifiers: Hydrocele type: unspecified Qualified Code(s): N43.3 - Hydrocele, unspecified SNOMED Code(s): 92205766, 813077674 (6) Infection of fluid collection Current Visit: Yes Status: Suspected CT abdomen and pelvis shows asymmetric injection of the fat seen surrounding the proximal right and left thigh. Focal fluid collection seen posterior to the right femur, the sterility of which is indeterminate. Interventional radiology consult. Status post aspiration of the fluid collection that yielded approximately 25 mmol of straw-colored fluid. Gram stain is negative. Culture is pending. Currently on vancomycin and Zosyn. SNOMED Code(s): 71997933 (7) Chronic indwelling Ulloa catheter Current Visit: Yes Status: Chronic Urology consult and following. SNOMED Code(s): 564431507 (8) History of nephrectomy Current Visit: No Status: Acute Due to malignancy in the year 1999. 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 Check respiratory infectious panel. Unable to perform a MRSA screen since the patient started been on vancomycin for several days. Await right hip fluid collection aspiration cultures. Noticed this morning that only a Gram stain was done. Spoke with microbiology who states that only a Gram stain was ordered. They do still have the specimen, so culture was added. Gram stain is negative. Ulloa catheter and scrotal cellulitis management per the urology team. Continue vancomycin IV. Pharmacy to dose. Goal trough approximately 15. Continue Zosyn 3.375 g IV every 8 hours. Duration of treatment depends on the clinical picture. Monitor renal function for drug toxicity and dose adjust antibiotics. Consult Discharge Plan - Plan Referrals: Patrice Tejeda MD [Primary Care Provider] - Prescriptions: Lactobacillus Acidophilus [Acidophilus] 1 each PO BID 30 Days #60 capsule Doxycycline 100 mg PO BID 12 Days #24 capsule levoFLOXacin [Levofloxacin] 750 mg PO DAILY 12 Days #12 tablet - Attending Attestation I have personally performed a face to face evaluation on this patient. I have reviewed and agree with the care plan. History and Exam by me shows: Assessment and plan: 1.Sepsis 2.Left lower lobe pneumonia 3.Catheter associated urinary tract infection with Pseudomonas 4.Large hydrocele with scrotal cellulitis Recommendations: Check strep pneumococcal and legionella urinary antigens. Check respiratory infectious panel. Unable to perform a MRSA screen since the patient started been on vancomycin for several days. Await right hip fluid collection aspiration cultures. Noticed this morning that only a Gram stain was done. Spoke with microbiology who states that only a Gram stain was ordered. They do still have the specimen, so culture was added. Gram stain is negative. Ulloa catheter and scrotal cellulitis management per the urology team. Continue vancomycin IV. Pharmacy to dose. Goal trough approximately 15. Continue Zosyn 3.375 g IV every 8 hours. Duration of treatment depends on the clinical picture. Monitor renal function for drug toxicity and dose adjust antibiotics.
[2019-02-10] MEDS: Furosemide 20 MG TABLET PO SCH (10:50)
[2019-02-10] MEDS: Ascorbic Acid 500 MG TABLET PO SCH (10:50)
[2019-02-10] MEDS: Loratadine 10 MG TABLET PO SCH (10:51)
[2019-02-10] MEDS: Aspirin Enteric Coated 81 MG Tablet PO SCH (10:51)
--- NOTE | 2019-02-10 11:24 | Internal Med Progress Note ---
Hospitalist Progress Note - Encounter Date of Encounter: 02/10/19 Time of Encounter: 11:21 - Subjective Interval History: I have seen and evaluated the patient at bedside. Patient reports feeling better today, reports his breathing is better, denies nausea, vomiting, shortness of breath or chest pain. - Exam Vitals: Temp Pulse Resp BP Pulse Ox 98.4 F 91 18 134/91 88 02/10/19 11:11 02/10/19 11:11 02/10/19 11:11 02/10/19 11:11 02/10/19 11:11 Exam: Vitals: reviewed General: Alert and oriented x4. In no distress Cardiovascular: RRR, normal S1 & S2, no rubs, murmurs or gallops. Lungs: decreased air entry b/l, no wheezes or crackles. Abdomen: Obese, soft, non-tender, no rigidity. ostomy bag. NABS in all 4 quadrants Extremities: paraplegic. unstagable decubitus ulcer on the left heel. : scrotal erythema and edema improving Neurological: No acute focal neurological deficits Rest of the physical exam is non contributory - Assessment and Plan (1) Sepsis Current Visit: Yes Status: Resolved Assessment and Plan: patient continues to improve clinically. on piperacillin/tazobactam 3.375mg/IV Q8HRs. ID consulted and re-started vancomycin, recommendations appreciated. joint aspiration yesterday: gram staim: no bacteria observed, pending culture. (2) Cellulitis of scrotum Current Visit: Yes Status: Acute Assessment and Plan: erythema of the scrotum has improved. ID re-started vancomycin vancomycin was discontinue due to ANDREW. (3) Catheter-associated urinary tract infection Current Visit: Yes Status: Acute Assessment and Plan: U/C: ingram-sensitive pseudomonas. 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 s/p pacemaker. continue telemetry monitoring (7) NAN on CPAP Current Visit: No Status: Chronic Assessment and Plan: Nocturnal BiPap (8) Hydrocele Current Visit: Yes Status: Chronic Assessment and Plan: Plan of care per urology recommendations (9) Acute hypercapnic respiratory failure Current Visit: Yes Status: Resolved Assessment and Plan: Patient with no wheezing on auscultation. No respiratory distress. Continue oxygen by nasal cannula, titrate for O2 sat duration more than 92%. Bronchodilators every 4 hours when necessary, incentive spirometry. (10) ANDREW (acute kidney injury) Current Visit: No Status: Suspected (11) CHF (congestive heart failure) Current Visit: Yes Status: Suspected Assessment and Plan: Patient on furosemide as an outpatient due to suspected CHF. TTE findings nondiagnostic for congestive heart failure. We will continue furosemide, incr eased to 40 mg by mouth daily. (12) Decubitus ulcer of ischial area Current Visit: No Status: Chronic Assessment and Plan: wound care consulted DVT Prophylaxis: Patient on heparin subcutaneous. - Summary of Assessment and Plan Summary of Assessment and Plan: Patient to remain in the hospital due to resolving sepsis. Pending joint asp iration cultures report. - Time Spent with Patient Total time spent is greater than 50% in coordination of care (as documented) at patient's floor/unit and/or counseling patient: Greater than 35 minutes (40) Plan of Care Discussed with: patient (his and the nurse) Internal Medicine: Result - Labs CBC & Chem 7: 02/10/19 04:00 02/10/19 04:00 Labs: Short CBC 02/10/19 Range/Units 04:00 WBC 14.0 H (4.3-11.1) K/mcL Hgb 10.5 L (12.9-16.9) g/dL Hct 34.2 L (37.5-50.1) % Plt Count 157 (140-400) K/mcL Neutrophils # 11.2 H (1.6-8.9) K/mcL BMP 02/10/19 04:00 Sodium 143 Potassium 3.5 Chloride 105 Carbon Dioxide 27 BUN 27 H Creatinine 1.06 Glucose 77 Calcium 8.4 L - ABG Interpretation ABG results: ABG ABG pH 7.31 pH Units (7.32-7.45) L 02/08/19 11:57 ABG pCO2 54 mmHg (35-45) H 02/08/19 11:57 ABG pO2 84 mmHg (85-104) L 02/08/19 11:57 ABG O2 Saturation 95 % (95-98) 02/08/19 11:57 - Impressions Impressions Needle Aspiration CT 02/09/19 00:00 IMPRESSION: Successful CT guided fluid aspiration D/ / Clay Singer MD / Clay Singer MD Interpreting Provider: Clay Singer MD Retroperitoneum Ultrasound 02/09/19 09:00 IMPRESSION: Right renal cyst. The patient has undergone previous left nephrectomy. The bladder was not imaged as it was decompressed on the Ullao catheter at the time of imaging. D/ / 02/09/2019 11:00:02 Maykel Kendall MD / dimas Interpreting Provider: Maykel Kendall MD Consult Discharge Plan - Plan Referrals: Patrice Tejeda MD [Primary Care Provider] - (1) Sepsis Qualifiers: Sepsis type: sepsis due to unspecified organism Qualified Code(s): A41.9 - Sepsis, unspecified organism (3) Catheter-associated urinary tract infection Qualifiers: Indwelling urinary catheter type: indwelling urethral catheter Encounter type: initial encounter Qualified Code(s): T83.511A - Infection and inflammatory reaction due to indwelling urethral catheter, initial encounter; N39.0 - Urinary tract infection, site not specified (4) LLL pneumonia Qualifiers: Pneumonia type: due to unspecified organism Qualified Code(s): J18.1 - Lobar pneumonia, unspecified organism (6) Atrial fibrillation Qualifiers: Atrial fibrillation type: chronic Qualified Code(s): I48.2 - Chronic atrial fibrillation (8) Hydrocele Qualifiers: Hydrocele type: unspecified Qualified Code(s): N43.3 - Hydrocele, unspecified (11) CHF (congestive heart failure) Qualifiers: Heart failure type: unspecified Heart failure chronicity: unspecified Qualified Code(s): I50.9 - Heart failure, unspecified (12) Decubitus ulcer of ischial area Qualifiers: Pressure injury stage: unspecified pressure injury stage Laterality: left Qualified Code(s): L89.329 - Pressure ulcer of left buttock, unspecified stage
[2019-02-10] MEDS: Gentamicin Oint 15 GM TUBE TP SCH (17:16)
[2019-02-10] MEDS: traZODone 50 MG TABLET PO SCH (20:12)
--- NOTE | 2019-02-10 23:24 | Nephrology Progress Note ---
Date of Encounter: 02/10/19 Time of Encounter: 12:00 - Assessment and Plan (1) ANDREW (acute kidney injury) Current Visit: No Status: Suspected Scr normalized at 1.06, GFR>60 UOP not documented Continue to avoid nephrotoxins if possible Will signoff, please reconsult prn (2) Acute hypercapnic respiratory failure Current Visit: Yes Status: Resolved Improved, per primary (3) Catheter-associated urinary tract infection Current Visit: Yes Status: Acute Continue abx per primary team Qualifiers: Indwelling urinary catheter type: indwelling urethral catheter Encounter type: initial encounter Qualified Code(s): T83.511A - Infection and inflammatory reaction due to indwelling urethral catheter, initial encounter; N39.0 - Urinary tract infection, site not specified (4) Cellulitis of scrotum Current Visit: Yes Status: Acute Continue abx per primary team (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 history of (6) History of nephrectomy Current Visit: No Status: Acute Now with solitary kidney Subjective Interval history: Pt seen and examined doing better overall, breathing better. Objective - Vital Signs Vital signs: Vital Signs Temp Pulse Resp BP Pulse Ox 02/10/19 22:01 22 97 02/10/19 20:43 98.1 F 73 18 130/75 97 02/10/19 16:18 98.5 F 96 18 132/80 93 02/10/19 11:11 98.4 F 91 18 134/91 88 02/10/19 06:48 97.7 F 88 16 119/64 90 02/10/19 05:31 138/80 02/10/19 04:28 98.5 F 87 18 183/80 93 02/10/19 00:32 98.8 F 82 25 124/81 95 02/10/19 00:15 23 96 Intake and Output 02/10/19 02/10/19 02/10/19 07:59 15:59 23:59 Intake Total 350 / 1410 610 / 1410 450 / 1410 Output Total 200 / 200 Balance 150 / 1210 610 / 1210 450 / 1210 Intake: IV Fluids 350 / 1050 250 / 1050 450 / 1050 Zosyn 3.375 GM In 0.9 % Sodium 100 / 300 200 / 300 Chloride (Mini-Bag +) 100 ML @ 25 mls/hr IVPB Q8HR [facility] Rx#: [id number] Vancocin 1,000 MG In 0.9 % 250 / 500 250 / 500 Sodium Chloride 250 ML @ 167 mls/hr IVPB Q12H [facility] Rx#: [id number] Vancocin 1,500 MG In 0.9 % 250 / 250 Sodium Chloride 250 ML @ 166. 667 mls/hr IVPB Q12H [facility] Rx#: [id number] Oral 360 / 360 Output: Stool 200 / 200 Other: Meal Breakfast Percent of Meal Consumed 10% Stool Consistency loose Stool Color Brown # Voids 2 1 # Urine Diapers 2 3 Weight 136.078 kg Patient Weight 02/10/19 23:59 Weight 136.078 kg - General Appearance General appearance: Present: chronically ill EENT: Present: ATNC, mucous membranes moist Neck: Present: no JVD, supple Additional Comments: decreased BS bases bilat Cardiology: Present: edema, normal S1, normal S2 Gastrointestinal: Present: no tenderness, no guarding, obese (+ostomy) Integumentary: Present: warm and dry Additional Comments: paraplegic with LUE contractures Musculoskeletal: Present: deformities (as above) Psychiatric: Present: mood/affect appropriate - Lab 02/10/19 04:00 02/10/19 04:00 Consult Discharge Plan - Plan Referrals: Patrice Tejeda MD [Primary Care Provider] -
[2019-02-11 05:04] LABS: Basophils % 0.2 %; Eosinophils # 0.1 K/mcL (0.0-0.6); Eosinophils % 1.1 %; Hematocrit 34.4 % (37.5-50.1); Hemoglobin 10.4 g/dL (12.9-16.9); Immature Granulocytes % 2.7 % (0-4); Lymphocytes # 1.1 K/mcL (0.6-4.6); Lymphocytes % 8.6 %; Mean Corpuscular HGB Conc 30.2 g/dL (31.6-35.5); Mean Corpuscular Hemoglobin 29.4 pg (28.0-33.3); Mean Corpuscular Volume 97.2 fL (83.0-100.0); Mean Platelet Volume 10.2 fL (9.4-12.4); Monocytes # 1.4 K/mcL (0.0-1.3); Monocytes % 10.2 %; Neutrophils # 10.2 K/mcL (1.6-8.9); Platelet Count 166 K/mcL (140-400); Red Blood Count 3.54 M/mcL (4.19-5.50); Red Cell Distribution Width 15.5 % (11.5-14.5); Segmented Neutrophils % 77.2 %
[2019-02-11 05:20] LABS: BUN/Creatinine Ratio 22 (6-26); Blood Urea Nitrogen 22 mg/dL (8-23); Calcium 8.1 mg/dL (8.6-10.3); Carbon Dioxide 30 mEq/L (23-29); Chloride 107 mEq/L (98-107); Glucose 101 mg/dL (70-105); Osmolality,Calculated 297 (280-300); Phosphorous 2.6 mg/dL (2.7-4.5); Potassium 3.4 mEq/L (3.5-5.1); Sodium 142 mEq/L (136-145); eGFR For Non-African Americans > 60 (> 60)
[2019-02-11 05:32] LABS: Magnesium 1.9 mg/dL (1.6-2.6)
[2019-02-11] MEDS: *HR* Heparin 5,000 UNIT/ML VIAL SQ SCH ×2 (05:47→13:22)
[2019-02-11] MEDS: Ascorbic Acid 500 MG TABLET PO SCH (08:35)
[2019-02-11] MEDS: Aspirin Enteric Coated 81 MG Tablet PO SCH (08:36)
[2019-02-11] MEDS: Piperacillin/Tazobactam 3.375 GM in 0.9 % Sodium Chloride Mini Bag 100 ML IVPB SCH ×2 (08:36→15:35)
[2019-02-11] MEDS: Furosemide 20 MG TABLET PO SCH (08:36)
[2019-02-11] MEDS: Loratadine 10 MG TABLET PO SCH (08:36)
[2019-02-11] MEDS: Gentamicin Oint 15 GM TUBE TP SCH (08:37)
--- NOTE | 2019-02-11 09:41 | Urology Progress Note ---
<Violeta Schmitt N - Last Filed: 02/11/19 09:39> Date of Encounter: 02/11/19 Time of Encounter: 08:30 - Assessment and Plan (1) Cellulitis of scrotum Status: Acute Assessment and plan: Patient is a 68-year-old male who presents with scrotal cellulitis and acute kidney injury. Patient's renal function is recovered with a GFR greater than 60. White blood cell count is trending down. Vital signs are stable and afebrile. I discussed with the patient he does have a large hydrocele, but this is not likely a pyocele. We do not believe surgical intervention is in the patient's best interest as we may introduce bacteria into a sterile scrotum. If hydrocele is bothersome to patient, we can plan for drainage when scrotal cellulitis is completely resolved. We discussed outpatient follow-up with Dr. Alfaro within 2 weeks of discharge. (2) Acute renal insufficiency Status: Acute (3) Catheter-associated urinary tract infection Status: Acute Qualifiers: Indwelling urinary catheter type: indwelling urethral catheter Encounter type: initial encounter Qualified Code(s): T83.511A - Infection and inflammatory reaction due to indwelling urethral catheter, initial encounter; N39.0 - Urinary tract infection, site not specified Progress Note Narrative: Patient seen and examined sitting upright in bed in no apparent distress. Ulloa catheter is indwelling and draining transparent, clear yellow urine into bedside bag. Patient is still experiencing some leakage from urinary catheter, although, proper placement was confirmed on ultrasound. Patient denies any fever or chills. Objective Initial Vital Signs Temp Pulse Resp BP Pulse Ox 98.7 F 76 15 115/83 94 02/04/19 20:46 02/04/19 20:46 02/04/19 20:46 02/04/19 20:46 02/04/19 20:46 - General physical appearance Present: no distress, no pain, obese - Respiratory Present: normal expansion, normal respiratory effort - Abdomen Present: soft, non tender - Genitourinary scrotal mass/hydrocele: bilateral Urine Appearance: Present: Clear - Integumentary Present: no rash, no abnormal pigmentation - Musculoskeletal Present: normal posture - Psychiatric Present: oriented to time, oriented to person, oriented to place, speech is normal, memory intact - Labs 02/11/19 04:35 02/11/19 04:35 Diabetes panel 02/11/19 Range/Units 04:35 Sodium 142 (136-145) mEq/L Potassium 3.4 L (3.5-5.1) mEq/L Chloride 107 (98-107) mEq/L Carbon Dioxide 30 H (23-29) mEq/L BUN 22 (8-23) mg/dL Creatinine 1.02 (0.70-1.30) mg/dL Glucose 101 (70-105) mg/dL Calcium 8.1 L (8.6-10.3) mg/dL Calcium panel 02/11/19 Range/Units 04:35 Calcium 8.1 L (8.6-10.3) mg/dL Phosphorus 2.6 L (2.7-4.5) mg/dL Pituitary panel 02/11/19 Range/Units 04:35 Sodium 142 (136-145) mEq/L Potassium 3.4 L (3.5-5.1) mEq/L Chloride 107 (98-107) mEq/L Carbon Dioxide 30 H (23-29) mEq/L BUN 22 (8-23) mg/dL Creatinine 1.02 (0.70-1.30) mg/dL Glucose 101 (70-105) mg/dL Calcium 8.1 L (8.6-10.3) mg/dL Adrenal panel 02/11/19 Range/Units 04:35 Sodium 142 (136-145) mEq/L Potassium 3.4 L (3.5-5.1) mEq/L Chloride 107 (98-107) mEq/L Carbon Dioxide 30 H (23-29) mEq/L BUN 22 (8-23) mg/dL Creatinine 1.02 (0.70-1.30) mg/dL Glucose 101 (70-105) mg/dL Calcium 8.1 L (8.6-10.3) mg/dL Consult Discharge Plan - Plan Instructions: Doxycycline (By mouth), Levofloxacin (By mouth), Probiotic (By mouth) Referrals: Care, Wound Care [Other] (Please follow up with Dr. Hardin in 1 week at the wound care clinic. Office should call you at home with a follow up appointment) Alayna Landin CNP [Advanced Practice Nurse] - 02/16/19 10:00 am Dennis Alfaro MD [Partnered Physician] - 02/25/19 9:30 am Prescriptions: Lactobacillus Acidophilus [Acidophilus] 1 each PO BID 30 Days #60 capsule Doxycycline 100 mg PO BID 12 Days #24 capsule levoFLOXacin [Levofloxacin] 750 mg PO DAILY 12 Days #12 tablet <Dennis Alfaro - Last Filed: 02/12/19 07:30> Date of Encounter: 02/12/19 - Assessment and Plan (1) Cellulitis of scrotum Status: Resolved Assessment and plan: agree with physician assistants findings. The hydrocele is noted and very unlikely a pyocele. A pyocele would be a very rare occurrence. Complicated hydroceles (with septations) are fairly common finding. I feel that drainage or surgical intervention of the hydrocele would likely increase his risk of infection by introducing bacteria into his scrotal space. Unfortunately he continues to have incontinence around the catheter. The ultrasound confirms that the catheter is in position. Only option would be to attempt intravesical Botox as an outpatient to minimize the incontinence and increase his bladder capacity (2) Acute renal insufficiency Status: Acute Objective Initial Vital Signs Temp Pulse Resp BP Pulse Ox 98.7 F 76 15 115/83 94 02/04/19 20:46 02/04/19 20:46 02/04/19 20:46 02/04/19 20:46 02/04/19 20:46 - Labs 02/11/19 04:35 02/11/19 04:35
[2019-02-11 11:19] LABS: Adenovirus Not Detected (Not Detect); Bordetella Pertussis Not Detected (Not Detect); Chlamydophila pneumoniae Not Detected (Not Detect); Coronavirus 229E Not Detected (Not Detect); Coronavirus HKU1 Not Detected (Not Detect); Coronavirus NL63 Not Detected (Not Detect); Coronavirus OC43 Not Detected (Not Detect); Human Metapneumovirus Not Detected (Not Detect); Human Rhinovirus/Enterovirus Not Detected (Not Detect); Influenza A Subtype 2009 H1 Not Detected (Not Detect); Influenza A Untypeable Not Detected (Not Detect); Influenza B Not Detected (Not Detect); Mycoplasma pneumoniae Not Detected (Not Detect); Parainfluenza Virus 1 Not Detected (Not Detect); Parainfluenza Virus 2 Not Detected (Not Detect); Parainfluenza Virus 3 Not Detected (Not Detect); Parainfluenza Virus 4 Not Detected (Not Detect); Respiratory Syncytial Virus Not Detected (Not Detect)
--- NOTE | 2019-02-11 11:35 | Discharge Summary ---
Orders not resulted at time of discharge: Pending orders 02/05/19 06:00 ECG 12 lead ECG [ECG] AM 0600 02/08/19 09:20 UA w. reflex microscopic [Urinalysis reflex Microscopic] [URIN] Stat 02/08/19 18:24 Creatinine,Urine [UCHEM] Stat Eosinophil,Urine [URIN] Stat Sodium, Urine [UCHEM] Stat 02/09/19 10:37 Prothrombin Time INR [COAG] Stat 02/09/19 13:35 AFB Culture, Body Fluid [TB] Stat AFB Smear [TB] Stat 02/10/19 09:53 Culture,Body Fluid [RM] Routine Fungal Culture [MYC] Routine 02/10/19 10:46 Legionella Antigen [RM] Routine S. Pneumoniae Antigen [RM] Routine Date of Encounter: 02/11/19 Time of Encounter: 11:33 - Discharge Diagnosis (1) Sepsis Priority: Primary Status: Resolved Qualifiers: Sepsis type: sepsis due to unspecified organism Qualified Code(s): A41.9 - Sepsis, unspecified organism (2) Cellulitis of scrotum Priority: Secondary Status: Acute (3) Catheter-associated urinary tract infection Priority: Secondary Status: Acute Qualifiers: Indwelling urinary catheter type: indwelling urethral catheter Encounter type: initial encounter Qualified Code(s): T83.511A - Infection and inflammatory reaction due to indwelling urethral catheter, initial encounter; N39.0 - Urinary tract infection, site not specified (4) LLL pneumonia Priority: Secondary Status: Acute Qualifiers: Pneumonia type: due to unspecified organism Qualified Code(s): J18.1 - Lobar pneumonia, unspecified organism (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 (6) Atrial fibrillation Priority: Secondary Status: Chronic Qualifiers: Atrial fibrillation type: chronic Qualified Code(s): I48.2 - Chronic atrial fibrillation (7) NAN on CPAP Priority: Secondary Status: Chronic (8) Hydrocele Priority: Secondary Status: Chronic Qualifiers: Hydrocele type: unspecified Qualified Code(s): N43.3 - Hydrocele, unspecified (9) Acute hypercapnic respiratory failure Priority: Secondary Status: Resolved (10) ANDREW (acute kidney injury) Priority: Secondary Status: Resolved (11) CHF (congestive heart failure) Priority: Secondary Status: Suspected Qualifiers: Heart failure type: unspecified Heart failure chronicity: unspecified Qualified Code(s): I50.9 - Heart failure, unspecified (12) Decubitus ulcer of ischial area Priority: Secondary Status: Chronic Qualifiers: Pressure injury stage: unspecified pressure injury stage Laterality: left Qualified Code(s): L89.329 - Pressure ulcer of left buttock, unspecified stage Hospital course: Mr. Garrido is a 68 year old male PHM parapleija following a fall, suspected CHF, copd and kidney ca s/p nephrectomy. Patient was brought to the hospital due to fevers, chills, and redness and swelling in the scrotum. Patient was found to be hypotensive, admitted to the hospital due to sepsis, scrotal cellulitis and a hydrocele. Patient was managed with broad spectrum IV antibiotics. Ingram cultured. urine culture grew ingram sensitive pseudomonas. a CT/CT abd pelvis wo no iv no oral IMPRESSION: Fluid is seen in the scrotum with overlying skin thickening. No obvious soft tissue gas. Correlate with clinical exam. Asymmetric injection of the fat is seen surrounding the proximal right and left thigh. Focal fluid collection is seen posterior to the right femur, the sterility of which is indeterminate. Correlate for signs of cellulitis. Small pleural effusions with adjacent airspace disease, either atelectasis or pneumonia. urology consulted for the scrotal cellulitis and hydrocele. urology recommended outpatient follow up for hydrocele management after the scrotal cellulitis has been treated. due to a Tubular collection of fluid marginates the right femur posteriorly, measuring 8.5 cm x 2.4 cm. IR was consulted and patient underwent IR guided drainage, fluid culture and gram stain: no growth. ID consulted as patient was recently treated for possible Osteomyelitis of the right hip and patient found to have a elevated ERS. ID recommended to change patient to doxycycline and levofloxacin until 02/23/19 upon discharge. Patient is hemodynamically stable to be discharge home on oral antibiotics. Patient recommended to follow-up with vocational training instructor and urology within 1-2 weeks of hospital discharge. - Time Spent with Patient Total time spent providing and/or coordinating discharge services: Time spent: Greater than 30 minutes (40) - Discharge Medications Prescriptions: New Lactobacillus Acidophilus [Acidophilus] 1 each PO BID 30 Days #60 capsule Doxycycline 100 mg PO BID 12 Days #24 capsule levoFLOXacin [Levofloxacin] 750 mg PO DAILY 12 Days #12 tablet Continued Aspirin [Lo-Dose Aspirin EC] 81 mg PO DAILY Furosemide [Lasix] 40 mg PO BID Cetirizine HCl [Zyrtec] 10 mg PO DAILY Ascorbate Calcium [Vitamin C] 500 mg PO DAILY traZODone [TraZODone] 100 mg PO HS PRN PRN Reason: Sleep Dantrolene Sodium 100 mg PO TID PRN PRN Reason: Muscle Spasm Home Medications: Ascorbate Calcium [Vitamin C] 500 mg PO DAILY 04/12/18 [History] Aspirin [Lo-Dose Aspirin EC] 81 mg PO DAILY 04/12/18 [History] Cetirizine HCl [Zyrtec] 10 mg PO DAILY 04/12/18 [History] Furosemide [Lasix] 40 mg PO BID 04/12/18 [History] Dantrolene Sodium 100 mg PO TID PRN 02/05/19 [History] traZODone [TraZODone] 100 mg PO HS PRN 02/05/19 [History] Doxycycline 100 mg PO BID 12 Days #24 capsule 02/11/19 [Rx] Lactobacillus Acidophilus [Acidophilus] 1 each PO BID 30 Days #60 capsule 02/11/19 [Rx] levoFLOXacin [Levofloxacin] 750 mg PO DAILY 12 Days #12 tablet 02/11/19 [Rx] Allergies/Adverse Reactions: Allergy/AdvReac Type Severity Reaction Status Date / Time latex Allergy Rash Verified 04/11/18 22:23 Sulfa (Sulfonamide Allergy Difficulty Verified 11/30/16 13:00 Antibiotics) Breathing Date of admission: 02/05/19 00:25 Primary care physician: Patrice Tejeda MD Consults: 02/04/19 23:48 Consult to Urology [CONS] Stat Consulting Provider: Urology Malone Reason for Consult: scrotal swelling, fever Time Notified: 23:49 Call Completed: Yes 02/05/19 09:38 Consult to Nurse Navigator [CONS] Routine Comment: pn 02/06/19 16:45 Consult to Interventional Radiology [CONS] Routine Consulting Provider: Radiology Interventional Cols Reason for Consult: Tubular collection of fluid marginates the right femur posteriorly, measuring 8.5 cm x 2.4 cm Call Completed: Yes 02/06/19 17:43 Consult to Nutrition [CONS] Routine Comment: decreased appetite and PO intake - vanilla ensure Consulting Provider: NUTRITION Reason for Dietary Consult: PO Supplementation 02/08/19 09:35 Consult to Nephrology [CONS] Routine Consulting Provider: Kidney Mady/OSBALDO/SAGE/AYAAN Reason for Consult: andrew. sepsis on presentation. was on vancomycin. chest x-ray with pulm vascular congestion/edema Call Completed: No 02/09/19 09:17 Consult to Invasive Line Access Team [CONS] Routine Reason for Consult: Limited vascular access Line Type: EPIV PICC line indications: Limited vascular access Time Notified: 08:50 Call Completed: Yes 02/09/19 12:03 Consult to Infectious Diseases [CONS] Routine Consulting Provider: Infectious Disease Mady Reason for Consult: sepsis. recently treated for sepsis joint. Tubular collection of fluid marginates the right femur posteriorly, measuring 8.5 cm x 2.[address] abd/pelvis, Call Completed: No 02/10/19 11:28 Consult to Physical Therapy [CONS] Routine Comment: Evaluate, develop and implement POC Reason for Consult: paraplejic Does patient have active BEDREST order?: Yes Is patient medically & hemodynamically stable?: Yes 02/10/19 11:37 Consult to Wound Care [CONS] Routine Reason for Consult: patient has stage 2 to coccyx, abrasion on left knee, and unstagable pressure injury on right heel. Call Completed: No 02/10/19 16:21 Consult to Podiatry [CONS] Routine Consulting Provider: [facility] Reason for Consult: unstageable wound to right heel Call Completed: No - Constitutional Vitals: Temp Pulse Resp BP Pulse Ox 97.7 F 77 18 136/82 95 02/11/19 07:18 02/11/19 07:18 02/11/19 07:18 02/11/19 07:18 02/11/19 07:18 General appearance: Present: cooperative, A&O X 3, pleasant, no acute distress, answers questions appropriately Exam: Vitals: reviewed General: Alert and oriented x4. In no distress Cardiovascular: RRR, normal S1 & S2, no rubs, murmurs or gallops. Lungs: decreased air entry b/l, no wheezes or crackles. Abdomen: Obese, soft, non-tender, no rigidity. ostomy bag. NABS in all 4 quadrants Extremities: paraplegic. unstagable decubitus ulcer on the left heel. : scrotal erythema and edema improving Neurological: No acute focal neurological deficits Rest of the physical exam is non contributory - Patient Status Disposition: Home Health Service Condition: Fair Functional capacity at discharge: bed bound Overall status at discharge: patient is back to baseline - Discharge Instructions Follow Up With: Care, Wound Care [Other] (Please follow up with Dr. Hardin in 1 week at the wound care clinic. Office should call you at home with a follow up appointment) Alayna Landin CNP [Advanced Practice Nurse] - 02/16/19 10:00 am Dennis Alfaro MD [Partnered Physician] - 02/25/19 9:30 am - Diet and Activity Activity: as per physical therapy Diet: low salt diet
--- NOTE | 2019-02-11 11:40 | Podiatry Consult Note ---
Date of Encounter: 02/11/19 Time of Encounter: 11:00 Assessment and Plan (1) Deep tissue injury Status: Acute ASSESSEMENT: DTI to the right heel Ongoing x2 months. Wound measures 2.8cmx2.5cm with dry eschar tissue covering entire wound Wound is stable in appearance, no surrounding edema, warmth or erythema. No drainage Unable to assess full depth of wound related to presence of eschar tissue No odor Recommend application of allevyn dressing for protection Application of heel medix boot at all times for protection of heel Follow up in wound care center with 1 week following discharge in wound care center Please have appointment made prior to discharge. History of Present Illness HPI: 68 y o male with PMH of renal cancer, paraplegic after an accident for last 23years, COPD and CHF admitted 02/05/19 with scrotal erythema and edema with associated fevers and chills. He was treated for cellulitis with abx; zosyn and vanco. podiatry has been consulted related to a DTI to right heel. Patient states this has been chronic since early january when he was in [facility] reports he did not follow with wound care. Reports has been caring for wound and told him it was looking better. States he has not seen the wound and does not know what it has previously looked like. Denies any pain to heel, denies sensation to foot. RLE paralysis. Patient wearing padded socks on arrival. Denies any know fevers, chills, n/v or fls. Past Med Surg Social Fam HX - Past Medical History Medical history: cancer, CHF, COPD Additional medical history: Paraplegic. kidney cancer (1999) Psychiatric history: no psych history - Past Surgical History Surgical History: cancer surgery, cholecystectomy, colostomy, pacemaker/AICD, other Additional surgical history: colostomy,left nephrectomy, chronic catheter. wound surgery - Social History Smoking Status: Never smoker Smokeless Tobacco Status: No Alcohol use: none Drug use: none - Family History Mother Living Status: Father Family Member Ethnicity: Non- Living Status: Hx Family Cardiac Disorders: No Hx Family Respiratory Disorders: No Hx Family Cancer: Yes Hx Family GI Disorders: No Hx Family Endocrine Disorder: Yes Hx Family Neuromuscular Disorders: No Hx Family Neurologic Disorders: Yes Hx Family HEENT Disorders: No Hx Family Autoimmune Disorders: No Brother Hx Family GI Disorders: Yes Medications and Allergies Ascorbate Calcium [Vitamin C] 500 mg PO DAILY 04/12/18 [History] Aspirin [Lo-Dose Aspirin EC] 81 mg PO DAILY 04/12/18 [History] Cetirizine HCl [Zyrtec] 10 mg PO DAILY 04/12/18 [History] Furosemide [Lasix] 40 mg PO BID 04/12/18 [History] Dantrolene Sodium 100 mg PO TID PRN 02/05/19 [History] traZODone [TraZODone] 100 mg PO HS PRN 02/05/19 [History] Doxycycline 100 mg PO BID 12 Days #24 capsule 02/11/19 [Rx] Lactobacillus Acidophilus [Acidophilus] 1 each PO BID 30 Days #60 capsule 02/11/19 [Rx] levoFLOXacin [Levofloxacin] 750 mg PO DAILY 12 Days #12 tablet 02/11/19 [Rx] Allergy/AdvReac Type Severity Reaction Status Date / Time latex Allergy Rash Verified 04/11/18 22:23 Sulfa (Sulfonamide Allergy Difficulty Verified 11/30/16 13:00 Antibiotics) Breathing All Systems Reviewed: As per history of present illness Physical Exam - Constitutional Vitals: Temp Pulse Resp BP Pulse Ox 97.7 F 77 18 136/82 95 02/11/19 07:18 02/11/19 07:18 02/11/19 07:18 02/11/19 07:18 02/11/19 07:18 Exam: General Examination: CONSTITUTIONAL: Alert, oriented, in no acute distress, non-toxic. EXTREMITIES: CFT 3 seconds all toes. Edema +1 and pedal pulses palpable. SKIN: Skin with decreased turgor, decreased subcutaneous tissue, skin thin and shiny with trophic changes associated with comorbidities as described in history.. NEUROLOGIC: diminished sensation to light or moderate touch to RLE, diminished sensation to light touch to LLE. MUSCULOSKELETAL: paralysis to RLE. Minimal movement 2/5 to lle. ULCERATION: There is a DTI noted to the right heel, unknown depth. 2.8cmx2.8cm 100% eschar tissue to base. No surrounding edema, erythema or warmth. There is no bone exposure however there is minimal overlying tissue, contour of underlying calcaneus is palpable. There is no fluctuance surrounding wound. Surrounding skin is not boggy to palpation. Results - Labs Result Diagrams: 02/11/19 04:35 02/11/19 04:35 Labs: Abnormal lab results WBC 13.2 K/mcL (4.3-11.1) H 02/11/19 04:35 RBC 3.54 M/mcL (4.19-5.50) L 02/11/19 04:35 Hgb 10.4 g/dL (12.9-16.9) L 02/11/19 04:35 Hct 34.4 % (37.5-50.1) L 02/11/19 04:35 MCHC 30.2 g/dL (31.6-35.5) L 02/11/19 04:35 RDW 15.5 % (11.5-14.5) H 02/11/19 04:35 Plt Count 123 K/mcL (140-400) L 02/07/19 02:20 5.0 % (0-4) H 02/06/19 06:23 10.2 K/mcL (1.6-8.9) H 02/11/19 04:35 1.4 K/mcL (0.0-1.3) H 02/11/19 04:35 Slight Decrease (Normal) L 02/06/19 06:23 1+ (Not Present) A 02/05/19 04:43 ESR >= 130 mm/hr (0-10) H 02/08/19 04:35 ABG pH 7.31 pH Units (7.32-7.45) L 02/08/19 11:57 ABG pCO2 54 mmHg (35-45) H 02/08/19 11:57 ABG pO2 84 mmHg (85-104) L 02/08/19 11:57 ABG HCO3 29 mEq/L (21-27) H 02/07/19 17:07 ABG Total CO2 29 mEq/L (20-26) H 02/08/19 11:57 ABG O2 Saturation 91 % (95-98) L 02/07/19 05:34 Sodium 134 mEq/L (136-145) L 02/04/19 21:59 Potassium 3.4 mEq/L (3.5-5.1) L 02/11/19 04:35 Chloride 97 mEq/L (98-107) L 02/04/19 21:59 Carbon Dioxide 30 mEq/L (23-29) H 02/11/19 04:35 BUN 27 mg/dL (8-23) H 02/10/19 04:00 1.50 mg/dL (0.70-1.30) H 02/08/19 07:48 Est GFR ( Amer) 57 (> 60) L 02/08/19 07:48 Est GFR (Non-Af Amer) 58 (> 60) L 02/09/19 10:21 Glucose 114 mg/dL (70-105) H 02/07/19 02:20 POC Glucose 105 mg/dL (70-99) H 02/07/19 17:44 Calcium 8.1 mg/dL (8.6-10.3) L 02/11/19 04:35 Phosphorus 2.6 mg/dL (2.7-4.5) L 02/11/19 04:35 1.8 mg/dL (0.3-1.0) H 02/05/19 04:43 AST 9 Units/L (13-39) L 02/05/19 04:43 ALT 5 Units/L (7-52) L 02/05/19 04:43 105 Units/L (34-104) H 02/05/19 04:43 12 Units/L (30-223) L 02/08/19 18:41 253 mg/L (Less than 10) H 02/08/19 04:35 3.1 g/dL (3.5-5.7) L 02/05/19 04:43 3.6 g/dL (2.4-3.5) H 02/05/19 04:43 0.9 (1.1-2.2) L 02/05/19 04:43 Turbid (Clear) A 02/04/19 23:56 Ur Specific [place] < 1.005 (1.010-1.025) L 02/04/19 23:56 30 mg/dL (Neg-Trace) H 02/04/19 23:56 Small (Negative) H 02/04/19 23:56 Ur Leukocyte Esterase Large (Negative) H 02/04/19 23:56 TNTC per hpf (0-3) H 02/04/19 23:56 Ur Squamous Epith Cells Many per lpf (None-Few) H 02/04/19 23:56 Many per hpf (None-Few) H 02/04/19 23:56 Ur Culture Indicated? YES (NO) A 02/04/19 23:56 Vancomycin Trough 24 mcg/mL (5-10) H 02/11/19 04:35 H & H 02/11/19 Range/Units 04:35 Hgb 10.4 L (12.9-16.9) g/dL Hct 34.4 L (37.5-50.1) % All other labs normal. Consult Discharge Plan - Plan Instructions: Doxycycline (By mouth), Levofloxacin (By mouth), Probiotic (By mouth) Referrals: Care, Wound Care [Other] (Please follow up with Dr. Hardin in 1 week at the wound care clinic. Office should call you at home with a follow up appointment) Alayna Landin CNP [Advanced Practice Nurse] - 02/16/19 10:00 am Dennis Alfaro MD [Partnered Physician] - 02/25/19 9:30 am Prescriptions: Lactobacillus Acidophilus [Acidophilus] 1 each PO BID 30 Days #60 capsule Doxycycline 100 mg PO BID 12 Days #24 capsule levoFLOXacin [Levofloxacin] 750 mg PO DAILY 12 Days #12 tablet
--- NOTE | 2019-02-11 11:43 | Infectious Disease Progress No ---
ID Progress Note Date of Encounter: 02/11/19 Time of Encounter: 09:50 - Subjective Subjective: Patient seen and examined. No acute events noted overnight. Patient states overall he feels well. Denies fevers, chills, or rigors. Denies chest pain, shortness of breath, or cough. Denies nausea, vomiting, diarrhea, or constipation. Ulloa catheter remains patent, but the patient states it has been leaking. Denies abdominal pain. Denies oral thrush or new skin lesions. State s his appetite is okay. - Objective CBC & Chem 7: 02/11/19 04:35 02/11/19 04:35 - Line Documentation Line Documentation: Ulloa Catheter (Draining clear yellow urine.) - Exam Vitals: Temp Pulse Resp BP Pulse Ox 97.7 F 77 18 136/82 95 02/11/19 07:18 02/11/19 07:18 02/11/19 07:18 02/11/19 07:18 02/11/19 07:18 Exam: Head: Atraumatic, normal inspection, normocephalic. Eye: EOMI, PERRLA, no scleral icterus noted. ENT: Mucous membranes moist. No odontogenic infection noted. Neck: Normal inspection, no meningismus. Respiratory: Clear to auscultation. No rales, respiratory distress, rhonchi, or wheezes noted. Cardiovascular: Regular rate and rhythm, S1 and S2 audible. No murmurs, rubs, or gallops. GI: Soft, nondistended, normal bowel sounds. Colostomy noted to the left lower quadrant with liquid brown stool noted. Ulloa catheter noted to be draining clear yellow urine. Extremities: No joint swelling or tenderness noted. 1+ edema noted to the BLE. Neurological: Alert, oriented 3,. Paralysis noted to the BLE. Diminished sensation noted from mid-abdomen down. Psychiatric: normal affect, normal mood. Back: SKin flap to the right buttock well-healed. No skin breakdown noted. Skin: Dry, intact, warm. Normal color. No rashes. - Assessment and Plan (1) Sepsis Current Visit: Yes Status: Resolved The patient had two SIRS criteria on admission. Likely secondary to scrotal cellulitis and UTI and pneumonia. Improved. White blood cell count trending down. Afebrile overnight. Blood cultures drawn 02/04/19 are negative 2 sets. Qualifiers: Sepsis type: sepsis due to unspecified organism Qualified Code(s): A41.9 - Sepsis, unspecified organism SNOMED Code(s): 38682877 (2) LLL pneumonia Current Visit: Yes Status: Acute Causative organism: Unclear. Location: Left lower lobe Chest x-ray showed findings concerning for left lower lobe pneumonia and effusion. CT of the abdomen and pelvis showed a small pleural effusion with adjacent airspace disease, either atelectasis or pneumonia. Aspiration is low on the differential. Strep pneumo and legionella and RIP pending collection. Currently on vancomycin and Zosyn. Qualifiers: Pneumonia type: due to unspecified organism Qualified Code(s): J18.1 - Lobar pneumonia, unspecified organism SNOMED Code(s): 750250385 (3) Catheter-associated urinary tract infection Current Visit: Yes Status: Acute Causative organism: pansensitive pseudomonas aeruginosa. Ulloa catheter exchanged by the urology team. Currently on Zosyn. Qualifiers: Indwelling urinary catheter type: indwelling urethral catheter Encounter type: initial encounter Qualified Code(s): T83.511A - Infection and inflammatory reaction due to indwelling urethral catheter, initial encounter; N39.0 - Urinary tract infection, site not specified SNOMED Code(s): 289019857 (4) Cellulitis of scrotum Current Visit: Yes Status: Acute CT of the abdomen and pelvis shows fluid seen within the scrotum with overlying skin thickening with no obvious soft tissue gas. Causative organism: Unclear. Concern for staph and strep and skin jourdan causing the cellulitis. Urology consult and following. Currently on vancomycin and Zosyn. SNOMED Code(s): 52534288 (5) Hydrocele Current Visit: Yes Status: Chronic Ultrasound states possible hematocele versus pyocele. Patient was evaluated by urology; appreciate their input. They stated that they would rather wait before they drained the fluid because they are concerned of introducing infection and I think that is pretty reasonable. Currently on vancomycin and Zosyn. Qualifiers: Hydrocele type: unspecified Qualified Code(s): N43.3 - Hydrocele, unspecified SNOMED Code(s): 99185165, 140518334 (6) Infection of fluid collection Current Visit: Yes Status: Suspected CT abdomen and pelvis shows asymmetric injection of the fat seen surrounding the proximal right and left thigh. Focal fluid collection seen posterior to the right femur, the sterility of which is indeterminate. Interventional radiology consult. Status post aspiration of the fluid collection that yielded approximately 25 mmol of straw-colored fluid. Gram stain is negative. Culture is no growth. Currently on vancomycin and Zosyn. SNOMED Code(s): 15005879 (7) Chronic indwelling Ulloa catheter Current Visit: Yes Status: Chronic Urology consult and following. SNOMED Code(s): 117689170 (8) History of nephrectomy Current Visit: No Status: Acute Due to malignancy in the year 1999. SNOMED Code(s): 65550978932164 (9) Paraplegia following spinal cord injury Current Visit: Yes Status: Chronic SNOMED Code(s): 25589817, 23274639 (10) Decubitus ulcer Current Visit: Yes Status: Acute SNOMED Code(s): 275426863 - Recommendations Recommendations: Check strep pneumococcal and legionella urinary antigens. Check respiratory infectious panel. Unable to perform a MRSA screen since the patient started been on vancomycin for several days. Await right hip fluid collection aspiration cultures. Gram stain is negative. Ulloa catheter and scrotal cellulitis management per the urology team. Continue vancomycin IV. Pharmacy to dose. Goal trough approximately 15. Continue Zosyn 3.375 g IV every 8 hours. Duration of treatment depends on the clinical picture. Can transition to PO doxycycline and levaquin through 02/23/19. Monitor renal function for drug toxicity and dose adjust antibiotics. Consult Discharge Plan - Plan Referrals: Care, Wound Care [Other] (Please follow up with Dr. Hardin in 1 week at the wound care clinic. Office should call you at home with a follow up appointment) Alayna Landin CNP [Advanced Practice Nurse] - 02/16/19 10:00 am Dennis Alfaro MD [Partnered Physician] - 02/25/19 9:30 am Prescriptions: Lactobacillus Acidophilus [Acidophilus] 1 each PO BID 30 Days #60 capsule Doxycycline 100 mg PO BID 12 Days #24 capsule levoFLOXacin [Levofloxacin] 750 mg PO DAILY 12 Days #12 tablet - Attending Attestation I have personally performed a face to face evaluation on this patient. I have reviewed and agree with the care plan. History and Exam by me shows: Assessment and plan: 1.Sepsis 2.Left lower lobe pneumonia 3.Catheter associated urinary tract infection with Pseudomonas 4.Large hydrocele with scrotal cellulitis recommendations: Clinically doing better. Consider switching him to oral doxycycline and levofloxacin to cover the pos sible cellulitis of the scrotum and the pseudomonas aeruginosa urinary tract infection Duration of treatment through 02/23/2019 Discussed with the hospitalist the
[2019-02-11] MEDS ORDERED: Hyoscyamine SL 0.125 MG TAB.SUBL SL PRN (12:00)
--- NOTE | 2019-02-11 12:08 | Physician Discharge Referral ---
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 For more information, call the [place] Tobacco Quit Line at 7-274-YXWH-NOW. - Diet/Nutrition Diet/Nutrition Orders: Regular - Activity Activity Orders: Bedrest - Services Needed Following services are medically necessary services: Home Health Aide, Physical Therapy, Occupational Therapy - Transfer Medications Home Medications: Ascorbate Calcium [Vitamin C] 500 mg PO DAILY 04/12/18 [History] Aspirin [Lo-Dose Aspirin EC] 81 mg PO DAILY 04/12/18 [History] Cetirizine HCl [Zyrtec] 10 mg PO DAILY 04/12/18 [History] Furosemide [Lasix] 40 mg PO BID 04/12/18 [History] Dantrolene Sodium 100 mg PO TID PRN 02/05/19 [History] traZODone [TraZODone] 100 mg PO HS PRN 02/05/19 [History] Allergies/Adverse Reactions: Allergy/AdvReac Type Severity Reaction Status Date / Time latex Allergy Rash Verified 04/11/18 22:23 Sulfa (Sulfonamide Allergy Difficulty Verified 11/30/16 13:00 Antibiotics) Breathing Certification: Further, I certify that my clinical findings support that this patient is homebound (i.e. absences from home require considerable and taxing effort and are for medical reasons or [employer] services or infrequently or short duration when for other reasons) because: Homebound Reason: Patient requires assistance of a person or device to safely leave home Attestation: My signature below is to certify that this patient is under my care and that I, or nurse practitioner, or a physician's judicial administrative assistant working with me, has a [id number] encounter with this patient.
[2019-02-11 15:54] VITALS: BP 137/90
== END 2019-02-11 18:50 | disposition home health service (06) | DRG 698 ==
LOC: EMEROOARM 20:41 → 2ANU 20:41 → SUATTDRO 02-05 00:25 → OBSVTOIN 02-05 00:25 → 2ANU 02-05 01:43
PROVIDERS: ADMIT Family Medicine; ATTEND Internal Medicine
PROC: IRDRAIN (2019-02-09 13:15)

== ENCOUNTER 2019-10-04 14:52 | Inpatient (IN) ==
[2019-10-04] MEDS ORDERED: 0.9 % Sodium Chloride 1,000 ML IVC ONE (15:15)
[2019-10-04] MEDS ORDERED: Isovue-370 500 ML BOTTLE IVP ONE (15:55)
[2019-10-04 16:20] LABS: Basophils % 0.2 %; Eosinophils % 0.8 %; Mean Corpuscular Hemoglobin 30.5 pg (28.0-33.3); Mean Platelet Volume 11.6 fL (9.4-12.4); White Blood Count 4.8 K/mcL (4.3-11.1)
[2019-10-04 16:22] LABS: Hematocrit 34.5 % (37.5-50.1); Hemoglobin 11.2 g/dL (12.9-16.9); Immature Granulocytes % 0.6 % (0-4); Immature Platelets 10.2 % (1.1-6.1); Lymphocytes # 0.7 K/mcL (0.6-4.6); Lymphocytes % 15.3 %; Mean Corpuscular HGB Conc 32.5 g/dL (31.6-35.5); Monocytes # 0.3 K/mcL (0.0-1.3); Neutrophils # 3.7 K/mcL (1.6-8.9); Red Blood Count 3.67 M/mcL (4.19-5.50); Red Cell Distribution Width 16.2 % (11.5-14.5); Segmented Neutrophils % 77.1 %
[2019-10-04 16:25] LABS: Bilirubin,Urine Negative (Negative); Blood,Urine Moderate (Negative); Clarity,Urine Clear (Clear); Color,Urine Yellow (Yellow); Glucose,Urine (UA) Normal (Normal); Ketones,Urine Negative (Negative); Leukocyte Esterase,Urine Negative (Negative); Nitrite,Urine Positive (Negative); Protein,Urine 100 mg/dL (Neg-Trace); Specific Gravity,Urine 1.015 (1.010-1.025); Urobilinogen,Urine Normal (Normal)
[2019-10-04 16:29] LABS: Bacteria,Urine Many per hpf (None-Few); RBC,Urine 30-50 per hpf (0-3); Squamous Epithelial Cell,Urine Moderate per lpf (None-Few)
[2019-10-04 16:39] LABS: INR 1.2; Prothrombin Time 13.1 Seconds (9.4-12.1)
[2019-10-04 16:39] LABS: Platelet Count 91 K/mcL (140-400); Platelet Estimate Decreased (Normal)
[2019-10-04 16:42] LABS: Alanine Aminotransferase 20 Units/L (7-52); Albumin 2.9 g/dL (3.5-5.7); Albumin/Globulin Ratio 0.8 (1.1-2.2); Alkaline Phosphatase 115 Units/L (34-104); Aspartate Amino Transferase 19 Units/L (13-39); BUN/Creatinine Ratio 25 (6-26); Bilirubin,Direct 0.1 mg/dL (0.0-0.2); Bilirubin,Indirect 0.3 mg/dL (0.0-1.0); Bilirubin,Total 0.4 mg/dL (0.3-1.0); Blood Urea Nitrogen 22 mg/dL (8-23); Calcium 8.3 mg/dL (8.6-10.3); Carbon Dioxide 29 mEq/L (23-29); Chloride 102 mEq/L (98-107); Globulin 3.5 g/dL (2.4-3.5); Glucose 85 mg/dL (70-105); Osmolality,Calculated 291 (280-300); Sodium 139 mEq/L (136-145); Total Protein 6.4 g/dL (6.4-8.9); eGFR For African Americans > 60 (> 60); eGFR For Non-African Americans > 60 (> 60)
[2019-10-04 16:43] LABS: Troponin I < 0.03 ng/mL (< 0.04)
[2019-10-04] MEDS ORDERED: cefTRIAXone 1,000 MG in 0.9 % Sodium Chloride Mini Bag 100 ML IVPB ONE (16:45)
[2019-10-04] MEDS ORDERED: Azithromycin 500 MG in 0.9 % Sodium Chloride 250 ML IVPB ONE (16:45)
[2019-10-04] MEDS ORDERED: Ondansetron ODT 4 MG TAB.RAPDIS SL PRN (20:36)
[2019-10-04] MEDS ORDERED: Naloxone 0.4 MG/ML INJ IVP PRN (20:36)
[2019-10-04] MEDS ORDERED: Acetaminophen 325 MG TABLET PO PRN (20:36)
[2019-10-04] MEDS ORDERED: traZODone 50 MG TABLET PO PRN (20:40)
[2019-10-04 21:47] LABS: Magnesium 1.9 mg/dL (1.6-2.6); Phosphorous 3.6 mg/dL (2.7-4.5)
[2019-10-04] MEDS: Furosemide 20 MG TABLET PO SCH (22:04)
[2019-10-04 22:46] LABS: VBG HCO3 29 mEq/L (21-27); VBG PCO2 50 mmHg (41-51); VBG PH 7.38 pH Units (7.32-7.42); VBG PO2 198 mmHg (25-50)
[2019-10-04 23:55] LABS: Bilirubin,Urine Negative (Negative); Blood,Urine Moderate (Negative); Clarity,Urine Cloudy (Clear); Color,Urine Yellow (Yellow); Glucose,Urine (UA) Normal (Normal); Ketones,Urine Negative (Negative); Leukocyte Esterase,Urine Large (Negative); Nitrite,Urine Negative (Negative); Protein,Urine Trace mg/dL (Neg-Trace); Specific Gravity,Urine 1.027 (1.010-1.025); Urobilinogen,Urine Normal (Normal)
[2019-10-04 23:57] LABS: Bacteria,Urine Moderate per hpf (None-Few); Hyaline Casts,Urine None Seen per lpf (None-Few); RBC,Urine 50-100 per hpf (0-3); Squamous Epithelial Cell,Urine Moderate per lpf (None-Few); WBC,Urine TNTC per hpf (0-3)
[2019-10-05 04:35] LABS: Basophils % 0.4 %; Eosinophils % 0.8 %; Hematocrit 35.7 % (37.5-50.1); Hemoglobin 11.1 g/dL (12.9-16.9); Immature Granulocytes % 0.4 % (0-4); Lymphocytes # 0.7 K/mcL (0.6-4.6); Lymphocytes % 14.8 %; Mean Corpuscular HGB Conc 31.1 g/dL (31.6-35.5); Mean Corpuscular Hemoglobin 30.3 pg (28.0-33.3); Mean Corpuscular Volume 97.5 fL (83.0-100.0); Mean Platelet Volume 12.1 fL (9.4-12.4); Monocytes # 0.3 K/mcL (0.0-1.3); Neutrophils # 3.7 K/mcL (1.6-8.9); Platelet Count 101 K/mcL (140-400); Red Blood Count 3.66 M/mcL (4.19-5.50); Red Cell Distribution Width 16.5 % (11.5-14.5); Segmented Neutrophils % 77.6 %; White Blood Count 4.8 K/mcL (4.3-11.1)
[2019-10-05 04:55] LABS: BUN/Creatinine Ratio 27 (6-26); Blood Urea Nitrogen 25 mg/dL (8-23); Calcium 8.8 mg/dL (8.6-10.3); Carbon Dioxide 28 mEq/L (23-29); Chloride 101 mEq/L (98-107); Glucose 70 mg/dL (70-105); Osmolality,Calculated 291 (280-300); Potassium 4.3 mEq/L (3.5-5.1); Sodium 139 mEq/L (136-145); eGFR For African Americans > 60 (> 60); eGFR For Non-African Americans > 60 (> 60)
[2019-10-05] MEDS ORDERED: Cefepime HCl 1,000 MG in Water for inj. (sterile) 10 ML IVP SCH (06:00)
[2019-10-05] MEDS ORDERED: *HR* Heparin 5,000 UNIT/ML VIAL SQ SCH (06:00)
[2019-10-05 09:10] LABS: Adenovirus F 40/41 PCR Not detected (Not detect); Astrovirus PCR Not detected (Not detect); Campylobacter by PCR Not detected (Not detect); Cryptosporidium by PCR Not detected (Not detect); Cyclospora cayetanensis PCR Not detected (Not detect); E. coli O157 by PCR Not detected (Not detect); Entamoeba histolytica PCR Not detected (Not detect); Enteroaggregative E.coli(EAEC) Not detected (Not detect); Enteropathogenic E.coli(EPEC) Not detected (Not detect); Enterotoxigenic E.coli (ETEC) Not detected (Not detect); Giardia lamblia PCR Not detected (Not detect); Norovirus GI/GII PCR Not detected (Not detect); Plesiomonas shigelloides PCR Not detected (Not detect); Rotavirus A PCR Not detected (Not detect); Salmonella PCR Not detected (Not detect); Sapovirus PCR Not detected (Not detect); Shig/EnteroinvasiveE coli EIEC Not detected (Not detect); Shigalike tox-prod E coli STEC Not detected (Not detect); Vibrio PCR Not detected (Not detect); Vibrio cholerae PCR Not detected (Not detect); Yersinia enterocolitica PCR Not detected (Not detect)
[2019-10-05 09:11] LABS: C.difficile Toxin A/B Gene PCR DETECTED (Not detect)
[2019-10-05] MEDS: Furosemide 20 MG TABLET PO SCH (09:32)
[2019-10-05] MEDS: Aspirin Enteric Coated 81 MG Tablet PO SCH (09:32)
[2019-10-05] MEDS: Ascorbic Acid 500 MG TABLET PO SCH (09:33)
[2019-10-05] MEDS: Vancomycin Oral Soln 125 MG/2.5 ML UDC PO SCH ×4 (11:09→20:58)
[2019-10-05] MEDS: Piperacillin/Tazobactam 3.375 GM in 0.9 % Sodium Chloride Mini Bag 100 ML IVPB SCH (18:38)
[2019-10-06] MEDS: Piperacillin/Tazobactam 3.375 GM in 0.9 % Sodium Chloride Mini Bag 100 ML IVPB SCH ×3 (00:28→15:07)
[2019-10-06 02:13] LABS: Basophils % 0.2 %; Eosinophils % 0.1 %; Hematocrit 35.4 % (37.5-50.1); Hemoglobin 11.7 g/dL (12.9-16.9); Immature Granulocytes % 0.5 % (0-4); Lymphocytes # 0.9 K/mcL (0.6-4.6); Lymphocytes % 6.7 %; Mean Corpuscular HGB Conc 33.1 g/dL (31.6-35.5); Mean Corpuscular Hemoglobin 30.8 pg (28.0-33.3); Mean Corpuscular Volume 93.2 fL (83.0-100.0); Mean Platelet Volume 12.3 fL (9.4-12.4); Monocytes % 7.7 %; Neutrophils # 11.1 K/mcL (1.6-8.9); Platelet Count 111 K/mcL (140-400); Segmented Neutrophils % 84.8 %
[2019-10-06 02:14] LABS: White Blood Count 13.1 K/mcL (4.3-11.1)
[2019-10-06 02:25] LABS: BUN/Creatinine Ratio 22 (6-26); Blood Urea Nitrogen 29 mg/dL (8-23); Calcium 8.5 mg/dL (8.6-10.3); Carbon Dioxide 29 mEq/L (23-29); Chloride 105 mEq/L (98-107); Glucose 75 mg/dL (70-105); Osmolality,Calculated 295 (280-300); Potassium 4.3 mEq/L (3.5-5.1); Sodium 140 mEq/L (136-145); eGFR For African Americans > 60 (> 60); eGFR For Non-African Americans 55 (> 60)
[2019-10-06] MEDS: Ascorbic Acid 500 MG TABLET PO SCH (09:21)
[2019-10-06] MEDS: Aspirin Enteric Coated 81 MG Tablet PO SCH (09:21)
[2019-10-06] MEDS: Vancomycin Oral Soln 125 MG/2.5 ML UDC PO SCH ×4 (09:29→22:21)
[2019-10-06] MEDS: Ipratropium/Albuterol Neb 3 ML IH SCH ×2 (14:20→20:27)
[2019-10-06] MEDS: Furosemide 40 MG/4 ML VIAL IVP SCH (15:07)
[2019-10-06 17:10] LABS: Adenovirus Not Detected (Not Detect); Bordetella Pertussis Not Detected (Not Detect); Chlamydophila pneumoniae Not Detected (Not Detect); Coronavirus 229E Not Detected (Not Detect); Coronavirus HKU1 Not Detected (Not Detect); Coronavirus NL63 Not Detected (Not Detect); Coronavirus OC43 Not Detected (Not Detect); Human Metapneumovirus Not Detected (Not Detect); Human Rhinovirus/Enterovirus Not Detected (Not Detect); Influenza A Subtype 2009 H1 Not Detected (Not Detect); Influenza B Not Detected (Not Detect); Mycoplasma pneumoniae Not Detected (Not Detect); Parainfluenza Virus 1 Not Detected (Not Detect); Parainfluenza Virus 2 Not Detected (Not Detect); Parainfluenza Virus 3 Not Detected (Not Detect); Parainfluenza Virus 4 Not Detected (Not Detect); Respiratory Syncytial Virus Not Detected (Not Detect)
[2019-10-07] MEDS: Piperacillin/Tazobactam 3.375 GM in 0.9 % Sodium Chloride Mini Bag 100 ML IVPB SCH ×3 (01:08→17:20)
[2019-10-07 01:12] LABS: Eosinophils % 0.1 %; Monocytes % 8.5 %
[2019-10-07 01:14] LABS: Basophils % 0.1 %; Hematocrit 33.6 % (37.5-50.1); Hemoglobin 10.5 g/dL (12.9-16.9); Immature Granulocytes % 0.4 % (0-4); Immature Platelets 8.9 % (1.1-6.1); Lymphocytes % 8.7 %; Mean Corpuscular HGB Conc 31.3 g/dL (31.6-35.5); Mean Corpuscular Hemoglobin 30.5 pg (28.0-33.3); Mean Corpuscular Volume 97.7 fL (83.0-100.0); Mean Platelet Volume 12.1 fL (9.4-12.4); Neutrophils # 9.2 K/mcL (1.6-8.9); Red Blood Count 3.44 M/mcL (4.19-5.50); Red Cell Distribution Width 16.8 % (11.5-14.5); Segmented Neutrophils % 82.2 %; White Blood Count 11.2 K/mcL (4.3-11.1)
[2019-10-07 01:15] LABS: Platelet Count 89 K/mcL (140-400)
[2019-10-07 01:25] LABS: BUN/Creatinine Ratio 23 (6-26); Blood Urea Nitrogen 28 mg/dL (8-23); Calcium 8.4 mg/dL (8.6-10.3); Carbon Dioxide 28 mEq/L (23-29); Chloride 105 mEq/L (98-107); Glucose 89 mg/dL (70-105); Osmolality,Calculated 295 (280-300); Sodium 140 mEq/L (136-145); eGFR For African Americans > 60 (> 60); eGFR For Non-African Americans 60 (> 60)
[2019-10-07] MEDS: Ipratropium/Albuterol Neb 3 ML IH SCH ×4 (03:23→22:16)
[2019-10-07] MEDS: Furosemide 40 MG/4 ML VIAL IVP SCH (08:20)
[2019-10-07] MEDS: Ascorbic Acid 500 MG TABLET PO SCH (08:20)
[2019-10-07] MEDS: Aspirin Enteric Coated 81 MG Tablet PO SCH (08:20)
[2019-10-07] MEDS: Vancomycin Oral Soln 125 MG/2.5 ML UDC PO SCH ×4 (08:20→19:40)
[2019-10-08] MEDS: Piperacillin/Tazobactam 3.375 GM in 0.9 % Sodium Chloride Mini Bag 100 ML IVPB SCH ×3 (00:45→16:30)
[2019-10-08] MEDS: Ipratropium/Albuterol Neb 3 ML IH SCH ×4 (04:21→22:01)
[2019-10-08 05:55] LABS: Basophils % 0.3 %; Eosinophils % 0.8 %; Immature Granulocytes % 0.4 % (0-4)
[2019-10-08 05:57] LABS: Eosinophils # 0.1 K/mcL (0.0-0.6); Hematocrit 32.7 % (37.5-50.1); Hemoglobin 10.5 g/dL (12.9-16.9); Immature Platelets 8.6 % (1.1-6.1); Lymphocytes % 12.7 %; Mean Corpuscular HGB Conc 32.1 g/dL (31.6-35.5); Mean Corpuscular Hemoglobin 30.8 pg (28.0-33.3); Mean Corpuscular Volume 95.9 fL (83.0-100.0); Mean Platelet Volume 12.1 fL (9.4-12.4); Monocytes # 0.5 K/mcL (0.0-1.3); Monocytes % 7.1 %; Red Blood Count 3.41 M/mcL (4.19-5.50); Red Cell Distribution Width 16.7 % (11.5-14.5); Segmented Neutrophils % 78.7 %; White Blood Count 7.6 K/mcL (4.3-11.1)
[2019-10-08 05:58] LABS: Platelet Count 93 K/mcL (140-400); Platelet Estimate Decreased (Normal)
[2019-10-08 06:16] LABS: BUN/Creatinine Ratio 18 (6-26); Blood Urea Nitrogen 22 mg/dL (8-23); Calcium 8.7 mg/dL (8.6-10.3); Carbon Dioxide 31 mEq/L (23-29); Chloride 101 mEq/L (98-107); Glucose 92 mg/dL (70-105); Osmolality,Calculated 295 (280-300); Potassium 3.9 mEq/L (3.5-5.1); Sodium 141 mEq/L (136-145); eGFR For African Americans > 60 (> 60); eGFR For Non-African Americans 59 (> 60)
[2019-10-08] MEDS: Ascorbic Acid 500 MG TABLET PO SCH (08:04)
[2019-10-08] MEDS: Furosemide 40 MG/4 ML VIAL IVP SCH (08:04)
[2019-10-08] MEDS: Aspirin Enteric Coated 81 MG Tablet PO SCH (08:04)
[2019-10-08] MEDS: Vancomycin Oral Soln 125 MG/2.5 ML UDC PO SCH ×4 (08:14→19:51)
[2019-10-08] MEDS: Lactobacillus 1 EACH CAP.SPRINK PO SCH (19:50)
[2019-10-09] MEDS: Piperacillin/Tazobactam 3.375 GM in 0.9 % Sodium Chloride Mini Bag 100 ML IVPB SCH ×2 (01:03→08:00)
[2019-10-09 03:25] LABS: Basophils % 0.3 %; Eosinophils # 0.1 K/mcL (0.0-0.6); Eosinophils % 1.3 %; Hematocrit 32.9 % (37.5-50.1); Hemoglobin 10.4 g/dL (12.9-16.9); Immature Granulocytes % 0.3 % (0-4); Lymphocytes # 0.7 K/mcL (0.6-4.6); Lymphocytes % 10.8 %; Mean Corpuscular HGB Conc 31.6 g/dL (31.6-35.5); Mean Corpuscular Hemoglobin 30.9 pg (28.0-33.3); Mean Corpuscular Volume 97.6 fL (83.0-100.0); Mean Platelet Volume 12.3 fL (9.4-12.4); Monocytes # 0.5 K/mcL (0.0-1.3); Monocytes % 6.9 %; Neutrophils # 5.4 K/mcL (1.6-8.9); Platelet Count 103 K/mcL (140-400); Red Blood Count 3.37 M/mcL (4.19-5.50); Red Cell Distribution Width 16.4 % (11.5-14.5); Segmented Neutrophils % 80.4 %; White Blood Count 6.7 K/mcL (4.3-11.1)
[2019-10-09] MEDS: Ipratropium/Albuterol Neb 3 ML IH SCH ×2 (03:25→10:52)
[2019-10-09 03:38] LABS: Blood Urea Nitrogen 17 mg/dL (8-23); Calcium 8.5 mg/dL (8.6-10.3); Carbon Dioxide 31 mEq/L (23-29); Chloride 104 mEq/L (98-107); Glucose 86 mg/dL (70-105); Osmolality,Calculated 291 (280-300); Sodium 140 mEq/L (136-145)
[2019-10-09 04:15] LABS: BUN/Creatinine Ratio 15 (6-26); eGFR For African Americans > 60 (> 60); eGFR For Non-African Americans > 60 (> 60)
[2019-10-09 07:20] VITALS: BP 137/77
[2019-10-09] MEDS: Lactobacillus 1 EACH CAP.SPRINK PO SCH (08:00)
[2019-10-09] MEDS: Ascorbic Acid 500 MG TABLET PO SCH (08:00)
[2019-10-09] MEDS: Aspirin Enteric Coated 81 MG Tablet PO SCH (08:00)
[2019-10-09] MEDS: Furosemide 40 MG/4 ML VIAL IVP SCH (08:01)
[2019-10-09] MEDS: Vancomycin Oral Soln 125 MG/2.5 ML UDC PO SCH (08:01)
== END 2019-10-09 14:41 | disposition home or self-care (01) | DRG 698 ==
LOC: 3NENU 14:52 → EMEROOARM 14:52 → SUATTDRO 19:33 → 3NENU 20:30 → 3BNU 10-05 14:11
PROVIDERS: ADMIT Family Medicine; ATTEND Internal Medicine

== ENCOUNTER 2019-10-26 13:19 | Inpatient (IN) ==
[2019-10-26 14:21] LABS: Basophils % 0.2 %; Eosinophils # 0.1 K/mcL (0.0-0.6); Eosinophils % 1.3 %; Hematocrit 37.6 % (37.5-50.1); Hemoglobin 11.6 g/dL (12.9-16.9); Immature Granulocytes % 0.2 % (0-4); Immature Platelets 6.9 % (1.1-6.1); Lymphocytes # 0.8 K/mcL (0.6-4.6); Lymphocytes % 15.6 %; Mean Corpuscular HGB Conc 30.9 g/dL (31.6-35.5); Mean Corpuscular Hemoglobin 30.5 pg (28.0-33.3); Mean Corpuscular Volume 98.9 fL (83.0-100.0); Mean Platelet Volume 11.4 fL (9.4-12.4); Monocytes # 0.4 K/mcL (0.0-1.3); Monocytes % 7.4 %; Neutrophils # 3.6 K/mcL (1.6-8.9); Platelet Count 97 K/mcL (140-400); Red Cell Distribution Width 16.8 % (11.5-14.5); Segmented Neutrophils % 75.3 %; White Blood Count 4.8 K/mcL (4.3-11.1)
[2019-10-26 14:22] LABS: Platelet Estimate Decreased (Normal)
[2019-10-26 14:37] LABS: Alanine Aminotransferase 15 Units/L (7-52); Albumin 3.4 g/dL (3.5-5.7); Albumin/Globulin Ratio 0.9 (1.1-2.2); Alkaline Phosphatase 111 Units/L (34-104); Aspartate Amino Transferase 18 Units/L (13-39); BUN/Creatinine Ratio 33 (6-26); Bilirubin,Direct 0.2 mg/dL (0.0-0.2); Bilirubin,Indirect 0.3 mg/dL (0.0-1.0); Bilirubin,Total 0.5 mg/dL (0.3-1.0); Blood Urea Nitrogen 28 mg/dL (8-23); Calcium 8.8 mg/dL (8.6-10.3); Carbon Dioxide 28 mEq/L (23-29); Chloride 105 mEq/L (98-107); Globulin 3.8 g/dL (2.4-3.5); Glucose 66 mg/dL (70-105); Magnesium 2.1 mg/dL (1.6-2.6); Osmolality,Calculated 292 (280-300); Potassium 4.6 mEq/L (3.5-5.1); Sodium 139 mEq/L (136-145); Total Protein 7.2 g/dL (6.4-8.9); Troponin I < 0.03 ng/mL (< 0.04); eGFR For African Americans > 60 (> 60); eGFR For Non-African Americans > 60 (> 60)
[2019-10-26 15:07] LABS: INR 1.1; Prothrombin Time 12.4 Seconds (9.4-12.1)
[2019-10-26] MEDS: 0.9 % Sodium Chloride 1,000 ML IVC STA ×2 (15:08→16:36)
[2019-10-26 15:10] LABS: Activated Partial Thrombo Time 50.9 Seconds (26.0-36.0)
[2019-10-26] MEDS ORDERED: cefTRIAXone 2,000 MG in Water for inj. (sterile) 20 ML IVP ONE (15:24)
[2019-10-26 15:43] LABS: Bacteria,Urine Many per hpf (None-Few); Bilirubin,Urine Negative (Negative); Blood,Urine Large (Negative); Clarity,Urine Turbid (Clear); Color,Urine Yellow (Yellow); Glucose,Urine (UA) Normal (Normal); Ketones,Urine Negative (Negative); Leukocyte Esterase,Urine Large (Negative); Nitrite,Urine Positive (Negative); Protein,Urine 100 mg/dL (Neg-Trace); RBC,Urine 15-30 per hpf (0-3); Specific Gravity,Urine 1.013 (1.010-1.025); Squamous Epithelial Cell,Urine Many per lpf (None-Few); Urobilinogen,Urine Normal (Normal); WBC,Urine TNTC per hpf (0-3)
[2019-10-26 15:49] LABS: Yeast,Urine Few per hpf (None Seen)
[2019-10-26] MEDS ORDERED: 0.9 % Sodium Chloride 500 ML IVC STA (16:29)
[2019-10-26] MEDS ORDERED: Naloxone 0.4 MG/ML INJ IVP PRN (16:57)
[2019-10-26] MEDS ORDERED: Acetaminophen 325 MG TABLET PO PRN (16:57)
[2019-10-26] MEDS ORDERED: 0.9 % Sodium Chloride 1,000 ML IVC ONE (18:41)
[2019-10-26] MEDS ORDERED: 0.9 % Sodium Chloride 500 ML IVC ONE (18:47)
[2019-10-26] MEDS ORDERED: Albumin 25% 25gram/100mL 25 GM/100 ML IV.SOLN IVPB ONE ×2 (23:32)
[2019-10-27] MEDS ORDERED: Piperacillin/Tazobactam 3.375 GM in 0.9 % Sodium Chloride Mini Bag 100 ML IVPB SCH
[2019-10-27] MEDS ORDERED: Albumin 25% 25gram/100mL 25 GM/100 ML IV.SOLN IVPB ONE ×2 (00:15)
[2019-10-27] MEDS: Piperacillin/Tazobactam 3.375 GM in 0.9 % Sodium Chloride Mini Bag 100 ML IVPB SCH ×4 (00:24→23:18)
[2019-10-27 01:30] LABS: BUN/Creatinine Ratio 29 (6-26); Blood Urea Nitrogen 30 mg/dL (8-23); Calcium 8.2 mg/dL (8.6-10.3); Carbon Dioxide 22 mEq/L (23-29); Chloride 108 mEq/L (98-107); Glucose 54 mg/dL (70-105); Osmolality,Calculated 290 (280-300); Sodium 138 mEq/L (136-145); eGFR For African Americans > 60 (> 60); eGFR For Non-African Americans > 60 (> 60)
[2019-10-27 02:05] LABS: Basophils % 0.2 %; Hematocrit 34.5 % (37.5-50.1); Hemoglobin 10.9 g/dL (12.9-16.9); Mean Corpuscular HGB Conc 31.6 g/dL (31.6-35.5); Mean Platelet Volume 11.7 fL (9.4-12.4)
[2019-10-27 02:07] LABS: Eosinophils % 0.5 %; Immature Granulocytes % 0.4 % (0-4); Immature Platelets 8.7 % (1.1-6.1); Lymphocytes # 0.6 K/mcL (0.6-4.6); Lymphocytes % 10.1 %; Mean Corpuscular Hemoglobin 30.6 pg (28.0-33.3); Mean Corpuscular Volume 96.9 fL (83.0-100.0); Monocytes # 0.5 K/mcL (0.0-1.3); Monocytes % 9.5 %; Neutrophils # 4.4 K/mcL (1.6-8.9); Red Blood Count 3.56 M/mcL (4.19-5.50); Segmented Neutrophils % 79.3 %; White Blood Count 5.6 K/mcL (4.3-11.1)
[2019-10-27 02:13] LABS: Platelet Count 81 K/mcL (140-400)
[2019-10-27] MEDS ORDERED: Dextrose Gel 15 GM/37.5 ML TUBE PO PRN ×2 (09:46)
[2019-10-27] MEDS ORDERED: *HR* Dextrose 50 % in Water (Syg) 50 ML SYRINGE IVP PRN (09:46)
[2019-10-27] MEDS: D5% in Water 1,000 ML IVC PRN (11:03)
[2019-10-27 16:22] LABS: ABG Base Excess 4 mEq/L (-2 to 3); ABG HCO3 30 mEq/L (21-27); ABG Oxygen Saturation 94 % (95-98); ABG PCO2 53 mmHg (35-45); ABG PH 7.36 pH Units (7.32-7.45); ABG PO2 75 mmHg (85-104); ABG TCO2 32 mEq/L (20-26)
[2019-10-27] MEDS: Silvasorb 44.4 ML TUBE TP SCH (17:21)
[2019-10-27] MEDS ORDERED: traZODone 50 MG TABLET PO PRN (17:39)
[2019-10-28 07:11] LABS: Basophils % 0.3 %
[2019-10-28 07:12] LABS: Hematocrit 35.6 % (37.5-50.1); Immature Platelets 9.2 % (1.1-6.1); Mean Corpuscular HGB Conc 30.9 g/dL (31.6-35.5); Mean Corpuscular Hemoglobin 30.1 pg (28.0-33.3); Mean Corpuscular Volume 97.5 fL (83.0-100.0); Mean Platelet Volume 12.9 fL (9.4-12.4); Red Blood Count 3.65 M/mcL (4.19-5.50); Red Cell Distribution Width 17.3 % (11.5-14.5); Segmented Neutrophils % 71.4 %; White Blood Count 6.3 K/mcL (4.3-11.1)
[2019-10-28 07:13] LABS: Eosinophils % 0.6 %; Immature Granulocytes % 0.5 % (0-4); Lymphocytes % 15.3 %; Monocytes # 0.8 K/mcL (0.0-1.3); Monocytes % 11.9 %; Neutrophils # 4.5 K/mcL (1.6-8.9)
[2019-10-28 07:19] LABS: Platelet Count 65 K/mcL (140-400)
[2019-10-28 07:33] LABS: Alanine Aminotransferase 13 Units/L (7-52); Albumin 3.4 g/dL (3.5-5.7); Alkaline Phosphatase 107 Units/L (34-104); Aspartate Amino Transferase 20 Units/L (13-39); BUN/Creatinine Ratio 22 (6-26); Bilirubin,Total 0.7 mg/dL (0.3-1.0); Blood Urea Nitrogen 29 mg/dL (8-23); Calcium 8.4 mg/dL (8.6-10.3); Carbon Dioxide 23 mEq/L (23-29); Chloride 106 mEq/L (98-107); Globulin 3.3 g/dL (2.4-3.5); Glucose 60 mg/dL (70-105); Osmolality,Calculated 298 (280-300); Potassium 4.5 mEq/L (3.5-5.1); Sodium 142 mEq/L (136-145); Total Protein 6.7 g/dL (6.4-8.9); eGFR For African Americans > 60 (> 60); eGFR For Non-African Americans 55 (> 60)
[2019-10-28] MEDS ORDERED: Aminoglycoside Consult 1 EACH MC ONE (07:36)
[2019-10-28] MEDS: Aspirin Enteric Coated 81 MG Tablet PO SCH (08:52)
[2019-10-28] MEDS: Piperacillin/Tazobactam 3.375 GM in 0.9 % Sodium Chloride Mini Bag 100 ML IVPB SCH ×3 (08:52→23:44)
[2019-10-28] MEDS: Silvasorb 44.4 ML TUBE TP SCH (09:10)
[2019-10-28 15:11] LABS: Thyroid Stimulating Hormone 14.315 mcIU/mL (0.340-5.600); Triiodothyronine (T3) Free 1.94 pg/mL (2.50-3.90)
[2019-10-28] MEDS: D5% in Water 1,000 ML IVC PRN (23:45)
[2019-10-29] MEDS: Aspirin Enteric Coated 81 MG Tablet PO SCH (07:44)
[2019-10-29] MEDS: Piperacillin/Tazobactam 3.375 GM in 0.9 % Sodium Chloride Mini Bag 100 ML IVPB SCH ×2 (07:44→16:27)
[2019-10-29] MEDS: Silvasorb 44.4 ML TUBE TP SCH (07:46)
[2019-10-29] MEDS: Thiamine (B-1) 100 MG TABLET PO SCH (08:03)
[2019-10-29] MEDS ORDERED: *HR* FentaNYL (PF) 100 MCG/2 ML VIAL ONE (08:55)
[2019-10-29] MEDS ORDERED: Lidocaine -MPF 2% 2 ML VIAL ONE (08:58)
[2019-10-29] MEDS ORDERED: Ketamine *HR* 500 MG/10 ML MDV ONE (09:05)
[2019-10-29] MEDS ORDERED: Lidocaine -MPF 4% 5 ML AMPUL ONE (09:10)
[2019-10-29] MEDS ORDERED: *HR* Rocuronium Bromide 50 MG/5 ML VIAL ONE (10:01)
[2019-10-29 16:58] LABS: Monocytes % 9.3 %
[2019-10-29 17:00] LABS: Basophils % 0.3 %; Eosinophils # 0.1 K/mcL (0.0-0.6); Eosinophils % 1.1 %; Hematocrit 33.9 % (37.5-50.1); Hemoglobin 10.7 g/dL (12.9-16.9); Immature Granulocytes % 0.3 % (0-4); Lymphocytes # 0.9 K/mcL (0.6-4.6); Lymphocytes % 9.8 %; Mean Corpuscular HGB Conc 31.6 g/dL (31.6-35.5); Mean Corpuscular Hemoglobin 30.3 pg (28.0-33.3); Mean Platelet Volume 12.1 fL (9.4-12.4); Monocytes # 0.9 K/mcL (0.0-1.3); Neutrophils # 7.5 K/mcL (1.6-8.9); Red Blood Count 3.53 M/mcL (4.19-5.50); Red Cell Distribution Width 16.8 % (11.5-14.5); Segmented Neutrophils % 79.2 %; White Blood Count 9.5 K/mcL (4.3-11.1)
[2019-10-29 17:03] LABS: Platelet Count 75 K/mcL (140-400)
[2019-10-29 17:16] LABS: BUN/Creatinine Ratio 19 (6-26); Blood Urea Nitrogen 21 mg/dL (8-23); Calcium 8.7 mg/dL (8.6-10.3); Carbon Dioxide 25 mEq/L (23-29); Chloride 107 mEq/L (98-107); Glucose 100 mg/dL (70-105); Osmolality,Calculated 291 (280-300); Potassium 4.6 mEq/L (3.5-5.1); Sodium 139 mEq/L (136-145); eGFR For African Americans > 60 (> 60); eGFR For Non-African Americans > 60 (> 60)
[2019-10-30] MEDS: Piperacillin/Tazobactam 3.375 GM in 0.9 % Sodium Chloride Mini Bag 100 ML IVPB SCH ×3 (00:31→16:19)
[2019-10-30 06:02] LABS: Basophils % 0.2 %; Mean Platelet Volume 11.7 fL (9.4-12.4)
[2019-10-30 06:04] LABS: Eosinophils # 0.1 K/mcL (0.0-0.6); Eosinophils % 1.2 %; Hematocrit 34.8 % (37.5-50.1); Hemoglobin 10.8 g/dL (12.9-16.9); Immature Granulocytes % 0.4 % (0-4); Immature Platelets 8.9 % (1.1-6.1); Lymphocytes # 0.9 K/mcL (0.6-4.6); Lymphocytes % 8.1 %; Mean Corpuscular Hemoglobin 31.2 pg (28.0-33.3); Mean Corpuscular Volume 100.6 fL (83.0-100.0); Monocytes # 0.9 K/mcL (0.0-1.3); Monocytes % 8.7 %; Neutrophils # 8.7 K/mcL (1.6-8.9); Red Blood Count 3.46 M/mcL (4.19-5.50); Red Cell Distribution Width 16.7 % (11.5-14.5); Segmented Neutrophils % 81.4 %; White Blood Count 10.7 K/mcL (4.3-11.1)
[2019-10-30 06:13] LABS: Platelet Count 89 K/mcL (140-400); Platelet Estimate Decreased (Normal)
[2019-10-30 06:26] LABS: BUN/Creatinine Ratio 16 (6-26); Blood Urea Nitrogen 18 mg/dL (8-23); Calcium 8.7 mg/dL (8.6-10.3); Carbon Dioxide 27 mEq/L (23-29); Chloride 104 mEq/L (98-107); Glucose 81 mg/dL (70-105); Osmolality,Calculated 293 (280-300); Potassium 4.6 mEq/L (3.5-5.1); Sodium 141 mEq/L (136-145); eGFR For African Americans > 60 (> 60); eGFR For Non-African Americans > 60 (> 60)
[2019-10-30] MEDS: Thiamine (B-1) 100 MG TABLET PO SCH (08:10)
[2019-10-30] MEDS: Aspirin Enteric Coated 81 MG Tablet PO SCH (08:11)
[2019-10-30] MEDS: Silvasorb 44.4 ML TUBE TP SCH (08:18)
[2019-10-30] MEDS: D5% in Water 1,000 ML IVC SCH ×2 (12:05→23:00)
[2019-10-31] MEDS: Piperacillin/Tazobactam 3.375 GM in 0.9 % Sodium Chloride Mini Bag 100 ML IVPB SCH ×2 (00:21→08:02)
[2019-10-31 06:30] LABS: Eosinophils % 2.9 %; Hemoglobin 10.8 g/dL (12.9-16.9)
[2019-10-31 06:32] LABS: Basophils % 0.1 %; Eosinophils # 0.2 K/mcL (0.0-0.6); Hematocrit 33.4 % (37.5-50.1); Immature Granulocytes % 0.5 % (0-4); Immature Platelets 9.5 % (1.1-6.1); Lymphocytes % 12.5 %; Mean Corpuscular HGB Conc 32.3 g/dL (31.6-35.5); Mean Corpuscular Hemoglobin 31.3 pg (28.0-33.3); Mean Corpuscular Volume 96.8 fL (83.0-100.0); Monocytes # 0.8 K/mcL (0.0-1.3); Monocytes % 9.9 %; Red Blood Count 3.45 M/mcL (4.19-5.50); Red Cell Distribution Width 16.3 % (11.5-14.5); Segmented Neutrophils % 74.1 %; White Blood Count 8.2 K/mcL (4.3-11.1)
[2019-10-31 06:33] LABS: Neutrophils # 6.1 K/mcL (1.6-8.9); Platelet Count 92 K/mcL (140-400)
[2019-10-31 06:50] LABS: BUN/Creatinine Ratio 13 (6-26); Blood Urea Nitrogen 13 mg/dL (8-23); Calcium 8.4 mg/dL (8.6-10.3); Carbon Dioxide 28 mEq/L (23-29); Chloride 103 mEq/L (98-107); Glucose 114 mg/dL (70-105); Osmolality,Calculated 289 (280-300); Potassium 4.7 mEq/L (3.5-5.1); Sodium 139 mEq/L (136-145); eGFR For African Americans > 60 (> 60); eGFR For Non-African Americans > 60 (> 60)
[2019-10-31] MEDS: D5% in Water 1,000 ML IVC SCH (08:01)
[2019-10-31] MEDS: Thiamine (B-1) 100 MG TABLET PO SCH (08:02)
[2019-10-31] MEDS: Aspirin Enteric Coated 81 MG Tablet PO SCH (08:02)
[2019-10-31] MEDS: Silvasorb 44.4 ML TUBE TP SCH (08:03)
[2019-10-31] MEDS ORDERED: Furosemide 40 MG/4 ML VIAL IVP ONE ×2 (08:50)
[2019-10-31] MEDS: Sulfamethoxazole/Trimeth DS 1 EACH TABLET PO SCH ×2 (10:34→20:58)
[2019-10-31] MEDS: Nystatin SUSP 5 ML UD.LIQ PO SCH ×3 (12:25→20:34)
[2019-10-31] MEDS ORDERED: Furosemide 20 MG/2 ML VIAL IVP ONE (16:00)
[2019-10-31] MEDS: D5% in Water 1,000 ML IVC PRN (17:56)
[2019-11-01 07:24] VITALS: BP 147/85
[2019-11-01 07:52] LABS: Basophils % 0.3 %; Eosinophils # 0.2 K/mcL (0.0-0.6); Eosinophils % 3.8 %; Hematocrit 33.4 % (37.5-50.1); Hemoglobin 10.8 g/dL (12.9-16.9); Immature Granulocytes % 0.5 % (0-4); Lymphocytes # 0.9 K/mcL (0.6-4.6); Lymphocytes % 14.4 %; Mean Corpuscular HGB Conc 32.3 g/dL (31.6-35.5); Mean Corpuscular Hemoglobin 30.9 pg (28.0-33.3); Mean Corpuscular Volume 95.4 fL (83.0-100.0); Mean Platelet Volume 12.1 fL (9.4-12.4); Monocytes # 0.6 K/mcL (0.0-1.3); Monocytes % 9.2 %; Neutrophils # 4.5 K/mcL (1.6-8.9); Platelet Count 113 K/mcL (140-400); Segmented Neutrophils % 71.8 %; White Blood Count 6.3 K/mcL (4.3-11.1)
[2019-11-01 08:10] LABS: BUN/Creatinine Ratio 12 (6-26); Blood Urea Nitrogen 12 mg/dL (8-23); Calcium 8.5 mg/dL (8.6-10.3); Carbon Dioxide 31 mEq/L (23-29); Chloride 101 mEq/L (98-107); Glucose 76 mg/dL (70-105); Osmolality,Calculated 289 (280-300); Potassium 4.3 mEq/L (3.5-5.1); Sodium 140 mEq/L (136-145); eGFR For African Americans > 60 (> 60); eGFR For Non-African Americans > 60 (> 60)
[2019-11-01] MEDS ORDERED: Furosemide 40 MG TABLET PO SCH (09:00)
[2019-11-01] MEDS: Sulfamethoxazole/Trimeth DS 1 EACH TABLET PO SCH (10:18)
[2019-11-01] MEDS: Aspirin Enteric Coated 81 MG Tablet PO SCH (10:18)
[2019-11-01] MEDS: Silvasorb 44.4 ML TUBE TP SCH (10:18)
[2019-11-01] MEDS: Nystatin SUSP 5 ML UD.LIQ PO SCH (10:18)
[2019-11-01] MEDS: Thiamine (B-1) 100 MG TABLET PO SCH (10:18)
[2019-11-03 15:24] LABS: Influenza A PCR Body Fluid NOT DETECTED; Influenza B PCR Body Fluid NOT DETECTED; RVP Body Fluid Source BAL LUL
[2019-11-04 08:31] LABS: RSV PCR Body Fluid NOT DETECTED
== END 2019-11-01 12:02 | disposition home health service (06) | DRG 698 ==
LOC: 3ANU 13:19 → EMEROOARM 13:19 → SUATTDRO 16:48 → 3ANU 17:30 → 2NNU 21:06 → SUATTDRO 10-27 07:57 → 2ANU 10-31 02:35
PROVIDERS: ADMIT Internal Medicine; ATTEND Internal Medicine

== ENCOUNTER 2020-01-17 17:34 | Inpatient (IN) ==
[2020-01-17 19:02] LABS: Bilirubin,Urine Negative (Negative); Blood,Urine Large (Negative); Clarity,Urine Cloudy (Clear); Color,Urine Yellow (Yellow); Glucose,Urine (UA) Normal (Normal); Ketones,Urine Negative (Negative); Leukocyte Esterase,Urine Large (Negative); Nitrite,Urine Positive (Negative); PH,Urine 7.5 pH Units (5.0-8.0); Protein,Urine 30 mg/dL (Neg-Trace); Specific Gravity,Urine 1.015 (1.010-1.025); Urobilinogen,Urine Normal (Normal)
[2020-01-17 19:05] LABS: Bacteria,Urine Many per hpf (None-Few); Hyaline Casts,Urine Few per lpf (None-Few); Squamous Epithelial Cell,Urine Many per lpf (None-Few)
[2020-01-17 19:08] LABS: Basophils % 0.2 %; Hemoglobin 11.8 g/dL (12.9-16.9); Immature Granulocytes % 0.6 % (0-4)
[2020-01-17 19:10] LABS: Eosinophils # 0.1 K/mcL (0.0-0.6); Eosinophils % 0.9 %; Hematocrit 40.5 % (37.5-50.1); Immature Platelets 12.1 % (1.1-6.1); Lymphocytes # 0.7 K/mcL (0.6-4.6); Mean Corpuscular HGB Conc 29.1 g/dL (31.6-35.5); Mean Corpuscular Hemoglobin 28.9 pg (28.0-33.3); Mean Platelet Volume 12.4 fL (9.4-12.4); Monocytes # 0.4 K/mcL (0.0-1.3); Monocytes % 7.2 %; Neutrophils # 4.3 K/mcL (1.6-8.9); Red Blood Count 4.09 M/mcL (4.19-5.50); Red Cell Distribution Width 17.3 % (11.5-14.5); Segmented Neutrophils % 79.1 %; White Blood Count 5.4 K/mcL (4.3-11.1)
[2020-01-17 19:11] LABS: Platelet Count 78 K/mcL (140-400)
[2020-01-17 19:16] LABS: Triple Phosphate Crystal,Urine Present; WBC,Urine 15-30 per hpf (0-3)
[2020-01-17 19:30] LABS: BUN/Creatinine Ratio 23 (6-26); Blood Urea Nitrogen 23 mg/dL (8-23); Carbon Dioxide 33 mEq/L (23-29); Chloride 98 mEq/L (98-107); Glucose 147 mg/dL (70-105); Osmolality,Calculated 292 (280-300); Potassium 3.7 mEq/L (3.5-5.1); Sodium 138 mEq/L (136-145); eGFR For African Americans > 60 (> 60); eGFR For Non-African Americans > 60 (> 60)
[2020-01-17 19:31] LABS: Troponin I < 0.03 ng/mL (< 0.04)
[2020-01-17] MEDS ORDERED: Naloxone 0.4 MG/ML INJ IVP PRN (22:55)
[2020-01-18] MEDS ORDERED: Furosemide 40 MG/4 ML VIAL IVP SCH (01:00)
[2020-01-18] MEDS: Piperacillin/Tazobactam 3.375 GM in 0.9 % Sodium Chloride Mini Bag 100 ML IVPB SCH ×2 (01:07→07:43)
[2020-01-18] MEDS: *HR* Heparin 5,000 UNIT/ML VIAL SQ SCH ×2 (05:08→17:35)
[2020-01-18 06:05] LABS: Hemoglobin 11.3 g/dL (12.9-16.9); Mean Corpuscular Volume 98.2 fL (83.0-100.0)
[2020-01-18 06:06] LABS: Basophils % 0.2 %; Eosinophils % 0.4 %; Hematocrit 38.3 % (37.5-50.1); Immature Granulocytes % 0.6 % (0-4); Immature Platelets 10.7 % (1.1-6.1); Lymphocytes # 0.5 K/mcL (0.6-4.6); Lymphocytes % 10.2 %; Mean Corpuscular HGB Conc 29.5 g/dL (31.6-35.5); Mean Platelet Volume 12.4 fL (9.4-12.4); Monocytes # 0.4 K/mcL (0.0-1.3); Monocytes % 7.1 %; Neutrophils # 4.2 K/mcL (1.6-8.9); Red Cell Distribution Width 17.2 % (11.5-14.5); Segmented Neutrophils % 81.5 %; White Blood Count 5.1 K/mcL (4.3-11.1)
[2020-01-18 06:13] LABS: Platelet Count 82 K/mcL (140-400)
[2020-01-18 06:17] LABS: Alanine Aminotransferase 13 Units/L (7-52); Albumin/Globulin Ratio 0.7 (1.1-2.2); Alkaline Phosphatase 119 Units/L (34-104); Aspartate Amino Transferase 17 Units/L (13-39); BUN/Creatinine Ratio 22 (6-26); Bilirubin,Total 0.6 mg/dL (0.3-1.0); Blood Urea Nitrogen 22 mg/dL (8-23); Calcium 8.9 mg/dL (8.6-10.3); Carbon Dioxide 31 mEq/L (23-29); Chloride 100 mEq/L (98-107); Globulin 4.3 g/dL (2.4-3.5); Glucose 79 mg/dL (70-105); Osmolality,Calculated 290 (280-300); Potassium 3.9 mEq/L (3.5-5.1); Sodium 139 mEq/L (136-145); Total Protein 7.3 g/dL (6.4-8.9); eGFR For African Americans > 60 (> 60); eGFR For Non-African Americans > 60 (> 60)
[2020-01-18] MEDS ORDERED: Loratadine 10 MG TABLET PO PRN (14:56)
[2020-01-18] MEDS ORDERED: Nystatin POWDER 30 GM BOTTLE TP PRN (15:14)
[2020-01-18] MEDS: Furosemide 40 MG/4 ML VIAL IVP SCH (17:35)
[2020-01-19] MEDS ORDERED: Ipratropium/Albuterol Neb 3 ML IH ONE (03:34)
[2020-01-19] MEDS: *HR* Heparin 5,000 UNIT/ML VIAL SQ SCH ×2 (05:10→17:17)
[2020-01-19 05:47] LABS: Mean Platelet Volume 11.3 fL (9.4-12.4); Red Cell Distribution Width 17.2 % (11.5-14.5)
[2020-01-19 05:50] LABS: Basophils % 0.5 %; Eosinophils % 0.5 %; Hematocrit 36.9 % (37.5-50.1); Hemoglobin 10.8 g/dL (12.9-16.9); Immature Granulocytes % 0.5 % (0-4); Immature Platelets 6.8 % (1.1-6.1); Lymphocytes # 0.8 K/mcL (0.6-4.6); Lymphocytes % 17.4 %; Mean Corpuscular HGB Conc 29.3 g/dL (31.6-35.5); Mean Corpuscular Hemoglobin 28.7 pg (28.0-33.3); Mean Corpuscular Volume 98.1 fL (83.0-100.0); Monocytes # 0.5 K/mcL (0.0-1.3); Monocytes % 11.5 %; Platelet Count 103 K/mcL (140-400); Red Blood Count 3.76 M/mcL (4.19-5.50); Segmented Neutrophils % 69.6 %; White Blood Count 4.4 K/mcL (4.3-11.1)
[2020-01-19 05:55] LABS: Neutrophils # 3.1 K/mcL (1.6-8.9)
[2020-01-19 06:08] LABS: BUN/Creatinine Ratio 17 (6-26); Blood Urea Nitrogen 20 mg/dL (8-23); Calcium 8.8 mg/dL (8.6-10.3); Carbon Dioxide 34 mEq/L (23-29); Chloride 99 mEq/L (98-107); Glucose 91 mg/dL (70-105); Osmolality,Calculated 292 (280-300); Potassium 4.1 mEq/L (3.5-5.1); Sodium 140 mEq/L (136-145); eGFR For African Americans > 60 (> 60); eGFR For Non-African Americans > 60 (> 60)
[2020-01-19] MEDS: Furosemide 40 MG/4 ML VIAL IVP SCH ×2 (07:58→17:17)
[2020-01-19] MEDS: Aspirin Enteric Coated 81 MG Tablet PO SCH (07:58)
[2020-01-19] MEDS: traZODone 50 MG TABLET PO PRN (22:16)
[2020-01-20 01:18] LABS: Basophils % 0.2 %; Eosinophils # 0.1 K/mcL (0.0-0.6); Eosinophils % 1.3 %; Hematocrit 38.5 % (37.5-50.1); Hemoglobin 11.5 g/dL (12.9-16.9); Immature Granulocytes % 0.5 % (0-4); Immature Platelets 8.2 % (1.1-6.1); Lymphocytes % 18.7 %; Mean Corpuscular HGB Conc 29.9 g/dL (31.6-35.5); Mean Platelet Volume 11.5 fL (9.4-12.4); Monocytes # 0.7 K/mcL (0.0-1.3); Monocytes % 12.4 %; Neutrophils # 3.7 K/mcL (1.6-8.9); Platelet Count 131 K/mcL (140-400); Red Blood Count 3.97 M/mcL (4.19-5.50); Red Cell Distribution Width 17.1 % (11.5-14.5); Segmented Neutrophils % 66.9 %; White Blood Count 5.6 K/mcL (4.3-11.1)
[2020-01-20 01:36] LABS: % Iron Saturation 11 % (20-55); BUN/Creatinine Ratio 17 (6-26); Blood Urea Nitrogen 18 mg/dL (8-23); Calcium 9.1 mg/dL (8.6-10.3); Carbon Dioxide 36 mEq/L (23-29); Chloride 96 mEq/L (98-107); Glucose 78 mg/dL (70-105); Iron 33 mcg/dL (65-175); Magnesium 1.8 mg/dL (1.6-2.6); Osmolality,Calculated 297 (280-300); Potassium 3.6 mEq/L (3.5-5.1); Sodium 143 mEq/L (136-145); Transferrin 209 mg/dL (203-362); eGFR For African Americans > 60 (> 60); eGFR For Non-African Americans > 60 (> 60)
[2020-01-20 01:54] LABS: Ferritin 208 ng/mL (20-250)
[2020-01-20] MEDS: *HR* Heparin 5,000 UNIT/ML VIAL SQ SCH ×2 (05:51→16:44)
[2020-01-20] MEDS: Aspirin Enteric Coated 81 MG Tablet PO SCH (08:09)
[2020-01-20] MEDS: Furosemide 40 MG/4 ML VIAL IVP SCH ×2 (08:09→16:44)
[2020-01-20] MEDS: traZODone 50 MG TABLET PO PRN (23:15)
[2020-01-21] MEDS: *HR* Heparin 5,000 UNIT/ML VIAL SQ SCH ×2 (04:57→17:31)
[2020-01-21 05:08] LABS: Basophils % 0.4 %; Eosinophils # 0.1 K/mcL (0.0-0.6); Eosinophils % 0.9 %; Hematocrit 39.5 % (37.5-50.1); Hemoglobin 12.2 g/dL (12.9-16.9); Immature Granulocytes % 0.7 % (0-4); Lymphocytes # 1.3 K/mcL (0.6-4.6); Lymphocytes % 17.3 %; Mean Corpuscular HGB Conc 30.9 g/dL (31.6-35.5); Mean Corpuscular Hemoglobin 29.7 pg (28.0-33.3); Mean Corpuscular Volume 96.1 fL (83.0-100.0); Mean Platelet Volume 10.9 fL (9.4-12.4); Monocytes # 0.7 K/mcL (0.0-1.3); Monocytes % 9.6 %; Neutrophils # 5.3 K/mcL (1.6-8.9); Platelet Count 164 K/mcL (140-400); Red Blood Count 4.11 M/mcL (4.19-5.50); Red Cell Distribution Width 17.1 % (11.5-14.5); Segmented Neutrophils % 71.1 %; White Blood Count 7.4 K/mcL (4.3-11.1)
[2020-01-21 05:26] LABS: BUN/Creatinine Ratio 16 (6-26); Blood Urea Nitrogen 18 mg/dL (8-23); Calcium 9.3 mg/dL (8.6-10.3); Carbon Dioxide 42 mEq/L (23-29); Chloride 92 mEq/L (98-107); Glucose 78 mg/dL (70-105); Magnesium 1.9 mg/dL (1.6-2.6); Osmolality,Calculated 295 (280-300); Potassium 3.7 mEq/L (3.5-5.1); Sodium 142 mEq/L (136-145); eGFR For African Americans > 60 (> 60); eGFR For Non-African Americans > 60 (> 60)
[2020-01-21] MEDS: Aspirin Enteric Coated 81 MG Tablet PO SCH (07:28)
[2020-01-21] MEDS: Furosemide 40 MG TABLET PO SCH ×2 (07:28→17:31)
[2020-01-21 10:03] LABS: VBG HCO3 43 mEq/L (21-27); VBG PCO2 59 mmHg (41-51); VBG PH 7.47 pH Units (7.32-7.42); VBG PO2 62 mmHg (25-50)
[2020-01-22 02:50] LABS: Basophils % 0.3 %; Eosinophils # 0.1 K/mcL (0.0-0.6); Eosinophils % 0.8 %; Hematocrit 40.2 % (37.5-50.1); Hemoglobin 12.4 g/dL (12.9-16.9); Immature Granulocytes % 0.6 % (0-4); Lymphocytes # 1.5 K/mcL (0.6-4.6); Lymphocytes % 15.4 %; Mean Corpuscular HGB Conc 30.8 g/dL (31.6-35.5); Mean Corpuscular Hemoglobin 28.9 pg (28.0-33.3); Mean Corpuscular Volume 93.7 fL (83.0-100.0); Monocytes # 0.9 K/mcL (0.0-1.3); Monocytes % 9.3 %; Neutrophils # 7.4 K/mcL (1.6-8.9); Platelet Count 209 K/mcL (140-400); Red Blood Count 4.29 M/mcL (4.19-5.50); Red Cell Distribution Width 17.1 % (11.5-14.5); Segmented Neutrophils % 73.6 %
[2020-01-22 03:02] LABS: VBG HCO3 41 mEq/L (21-27); VBG PCO2 50 mmHg (41-51); VBG PH 7.53 pH Units (7.32-7.42); VBG PO2 113 mmHg (25-50)
[2020-01-22 03:08] LABS: BUN/Creatinine Ratio 19 (6-26); Blood Urea Nitrogen 22 mg/dL (8-23); Calcium 9.5 mg/dL (8.6-10.3); Carbon Dioxide 39 mEq/L (23-29); Chloride 91 mEq/L (98-107); Glucose 112 mg/dL (70-105); Osmolality,Calculated 290 (280-300); Potassium 4.3 mEq/L (3.5-5.1); Sodium 138 mEq/L (136-145); eGFR For African Americans > 60 (> 60); eGFR For Non-African Americans > 60 (> 60)
[2020-01-22] MEDS: *HR* Heparin 5,000 UNIT/ML VIAL SQ SCH (06:14)
[2020-01-22] MEDS: Aspirin Enteric Coated 81 MG Tablet PO SCH (07:29)
[2020-01-22] MEDS: Furosemide 40 MG TABLET PO SCH (07:29)
[2020-01-22 10:16] VITALS: BP 123/70
== END 2020-01-22 11:41 | disposition home health service (06) | DRG 291 ==
LOC: 2NENU 17:34 → EMEROOARM 17:34 → 2NENU 22:00 → SUATTDRO 22:55 → 3ANU 01-18 23:03
PROVIDERS: ADMIT Internal Medicine; ATTEND Internal Medicine

== ENCOUNTER 2020-11-04 12:35 | Inpatient (IN) ==
[~2020-11-04 12:35] MED LIST: *HR* Propofol 200 MG/20 ML VIAL IVP ONE; *HR* Rocuronium Bromide 50 MG/5 ML VIAL IVP ONE; EPHEDrine 50 MG/ML VIAL IVP ONE; Lidocaine -MPF 2% 5 ML VIAL INFILT ONE; Lidocaine -MPF 4% 5 ML AMPUL INFILT ONE; Ondansetron 4 MG/2 ML VIAL IVP ONE
[2020-11-04] MEDS ORDERED: 0.9 % Sodium Chloride 1,000 ML IVC ONE (13:19)
[2020-11-04] MEDS ORDERED: Isovue-370 500 ML BOTTLE IVP ONE (13:20)
[2020-11-04 14:14] LABS: VBG HCO3 32 mEq/L (21-27); VBG PCO2 69 mmHg (41-51); VBG PH 7.27 pH Units (7.32-7.42); VBG PO2 122 mmHg (25-50)
[2020-11-04 14:16] LABS: Basophils % 0.2 %
[2020-11-04 14:18] LABS: Eosinophils % 0.4 %; Hematocrit 37.7 % (37.5-50.1); Hemoglobin 11.3 g/dL (12.9-16.9); Immature Granulocytes % 0.9 % (0-4); Immature Platelets 20.5 % (1.1-6.1); Lymphocytes # 0.5 K/mcL (0.6-4.6); Mean Corpuscular Hemoglobin 30.5 pg (28.0-33.3); Mean Corpuscular Volume 101.9 fL (83.0-100.0); Mean Platelet Volume 12.6 fL (9.4-12.4); Monocytes # 0.3 K/mcL (0.0-1.3); Neutrophils # 4.4 K/mcL (1.6-8.9); Nucleated Red Blood Cells 0.4 /100 WBC (0); Red Cell Distribution Width 17.5 % (11.5-14.5); Segmented Neutrophils % 82.5 %; White Blood Count 5.3 K/mcL (4.3-11.1)
[2020-11-04 14:19] LABS: INR 1.1; Prothrombin Time 13.2 Seconds (9.4-12.1)
[2020-11-04 14:24] LABS: Platelet Count 44 K/mcL (140-400)
[2020-11-04 14:35] LABS: Alanine Aminotransferase 19 Units/L (7-52); Albumin/Globulin Ratio 0.6 (1.1-2.2); Alkaline Phosphatase 99 Units/L (34-104); Aspartate Amino Transferase 23 Units/L (13-39); BUN/Creatinine Ratio 34 (6-26); Bilirubin,Direct 0.1 mg/dL (0.0-0.2); Bilirubin,Indirect 0.3 mg/dL (0.0-1.0); Bilirubin,Total 0.4 mg/dL (0.3-1.0); Blood Urea Nitrogen 40 mg/dL (8-23); Calcium 9.1 mg/dL (8.6-10.3); Carbon Dioxide 28 mEq/L (23-29); Chloride 99 mEq/L (98-107); Glucose 71 mg/dL (70-105); Lipase 44 Units/L (11-82); Magnesium 2.1 mg/dL (1.6-2.6); Osmolality,Calculated 290 (280-300); Phosphorous 4.4 mg/dL (2.7-4.5); Potassium 5.3 mEq/L (3.5-5.1); Sodium 136 mEq/L (136-145); Troponin I < 0.03 ng/mL (< 0.04); eGFR For African Americans > 60 (> 60); eGFR For Non-African Americans > 60 (> 60)
[2020-11-04] MEDS ORDERED: Furosemide 40 MG/4 ML VIAL IVP ONE (14:46)
[2020-11-04 14:47] LABS: Thyroid Stimulating Hormone 1.009 mcIU/mL (0.340-5.600)
[2020-11-04 15:04] LABS: Anisocytosis 1+ (Not Present); Large Platelets Present (Not Present); Platelet Estimate Decreased (Normal)
[2020-11-04 15:05] LABS: Macrocytosis Present (Not Present)
[2020-11-04 15:15] LABS: Bilirubin,Urine Negative (Negative); Blood,Urine Large (Negative); Color,Urine Yellow (Yellow); Glucose,Urine (UA) Normal (Normal); Ketones,Urine Negative (Negative); Leukocyte Esterase,Urine Small (Negative); Nitrite,Urine Negative (Negative); PH,Urine 5.5 pH Units (5.0-8.0); Protein,Urine 100 mg/dL (Neg-Trace); Specific Gravity,Urine 1.025 (1.010-1.025); Urobilinogen,Urine Normal (Normal)
[2020-11-04 15:16] LABS: Clarity,Urine Ex.Turbid (Clear)
[2020-11-04] MEDS ORDERED: Meropenem 1,000 MG in 0.9 % Sodium Chloride Mini Bag 100 ML IVPB ONE (15:16)
[2020-11-04 15:39] LABS: Calcium Oxalate Crystals,Urine Present
[2020-11-04 15:40] LABS: Renal Epithelial Cells,Urine Moderate per hpf (None-Few); Squamous Epithelial Cell,Urine Many per hpf (None-Few); Transitional Epi Cells,Urine Moderate per hpf (None-Few); WBC,Urine 15-30 per hpf (0-3)
[2020-11-04 15:41] LABS: Bacteria,Urine Many per hpf (None-Few)
[2020-11-04 16:09] LABS: Triiodothyronine (T3) Free 2.54 pg/mL (2.50-3.90)
[2020-11-04] MEDS ORDERED: Vancomycin 2,000 MG/520 ML IV.SOLN IVPB ONE (18:00)
[2020-11-04] MEDS ORDERED: Naloxone 0.4 MG/ML INJ IVP PRN (20:35)
[2020-11-04] MEDS ORDERED: Ondansetron ODT 4 MG TAB.RAPDIS SL PRN (20:35)
[2020-11-04] MEDS ORDERED: Acetaminophen 325 MG TABLET PO PRN (20:35)
[2020-11-04] MEDS ORDERED: Ipratropium/Albuterol Neb 3 ML IH PRN (20:50)
[2020-11-04] MEDS ORDERED: Ipratropium/Albuterol Neb 3 ML IH ONE (20:50)
[2020-11-04] MEDS ORDERED: Ipratropium/Albuterol Neb 3 ML ONE (20:59)
[2020-11-04] MEDS ORDERED: *HR* Dextrose 50 % in Water (Vial) 50 ML VIAL IVP PRN (21:44)
[2020-11-04] MEDS ORDERED: D5% in Water 1,000 ML IVC PRN (21:44)
[2020-11-04] MEDS ORDERED: Dextrose Gel 15 GM/37.5 ML TUBE PO PRN ×2 (21:44)
[2020-11-04] MEDS: Insulin LISPRO 300 UNITS/3 ML VIAL SUBQ SCH (22:12)
[2020-11-05] MEDS: Meropenem 1,000 MG in Water for inj. (sterile) 20 ML IVP SCH ×3 (00:16→15:47)
[2020-11-05 02:48] LABS: Basophils % 0.1 %; Eosinophils % 0.1 %; Immature Granulocytes % 0.6 % (0-4); Nucleated Red Blood Cells 0.3 /100 WBC (0); Segmented Neutrophils % 78.5 %
[2020-11-05 02:49] LABS: Hematocrit 39.2 % (37.5-50.1); Hemoglobin 11.7 g/dL (12.9-16.9); Immature Platelets 20.9 % (1.1-6.1); Lymphocytes # 0.5 K/mcL (0.6-4.6); Lymphocytes % 7.7 %; Mean Corpuscular HGB Conc 29.8 g/dL (31.6-35.5); Mean Corpuscular Hemoglobin 30.2 pg (28.0-33.3); Mean Corpuscular Volume 101.3 fL (83.0-100.0); Mean Platelet Volume 14.1 fL (9.4-12.4); Monocytes # 0.9 K/mcL (0.0-1.3); Neutrophils # 5.4 K/mcL (1.6-8.9); Red Blood Count 3.87 M/mcL (4.19-5.50); Red Cell Distribution Width 17.6 % (11.5-14.5); White Blood Count 6.9 K/mcL (4.3-11.1)
[2020-11-05 02:50] LABS: Platelet Count 53 K/mcL (140-400)
[2020-11-05 02:57] LABS: Calcium 9.2 mg/dL (8.6-10.3); Magnesium 2.1 mg/dL (1.6-2.6); Phosphorous 4.1 mg/dL (2.7-4.5); Potassium 5.5 mEq/L (3.5-5.1)
[2020-11-05] MEDS ORDERED: Vancomycin 1,750 MG/517.5 ML IV.SOLN IVPB SCH (06:00)
[2020-11-05] MEDS: Insulin LISPRO 300 UNITS/3 ML VIAL SUBQ SCH ×3 (07:34→15:55)
[2020-11-05] MEDS ORDERED: Furosemide 40 MG/4 ML VIAL IVP SCH (08:00)
[2020-11-05] MEDS ORDERED: 0.9 % Sodium Chloride 2,000 ML ONE (12:57)
[2020-11-05] MEDS ORDERED: Dexmedetomidine HCl 400 MCG/100 ML MLS IVC ONE (13:22)
[2020-11-05] MEDS ORDERED: *HR* FentaNYL (PF) 100 MCG/2 ML VIAL ONE (13:24)
[2020-11-05] MEDS ORDERED: Artificial Tears SOLN 15 ML BOTTLE BOTH EYES PRN (13:47)
[2020-11-05] MEDS ORDERED: *HR* FentaNYL (PF) 100 MCG/2 ML VIAL IVP ONE (14:01)
[2020-11-05] MEDS: FentaNYL (PF) 1,000 MCG/100 ML IV.SOLN IVC SCH ×2 (14:30→21:50)
[2020-11-05] MEDS: Norepinephrine 4 MG/254 ML IV.SOLN IVC SCH (14:30)
[2020-11-05 15:11] LABS: ABG Base Excess 2 mEq/L (-2 to 3); ABG HCO3 27 mEq/L (21-27); ABG Oxygen Saturation 84 % (95-98); ABG PCO2 44 mmHg (35-45); ABG PO2 49 mmHg (85-104); ABG TCO2 29 mEq/L (20-26); Blood Gas VT 550 cc
[2020-11-05] MEDS: Dexmedetomidine HCl 400 MCG/100 ML MLS IVC SCH ×2 (15:19→21:50)
[2020-11-05] MEDS: Pantoprazole 40 MG VIAL IVP SCH (15:35)
[2020-11-05] MEDS: Piperacillin/Tazobactam 3.375 GM in 0.9 % Sodium Chloride Mini Bag 100 ML IVPB SCH ×2 (15:47→23:43)
[2020-11-05] MEDS: Artificial Tears SOLN 15 ML BOTTLE BOTH EYES SCH ×3 (15:47→23:44)
[2020-11-05] MEDS ORDERED: Perflutren Lipid Microsphere 1.3 ML in 0.9 % Sodium Chloride 8.7 ML IVP PRN (16:38)
[2020-11-05] MEDS ORDERED: *HR* Midazolam HCl 5 MG/5 ML VIAL IVP ONE (16:43)
[2020-11-05] MEDS ORDERED: *HR* Midazolam HCl 2 MG/2 ML VIAL IVP ONE (16:43)
[2020-11-05] MEDS ORDERED: *HR* Etomidate 40 MG/20 ML VIAL IVP ONE (16:43)
[2020-11-05] MEDS ORDERED: *HR* Rocuronium Bromide 50 MG/5 ML VIAL IVP ONE (16:43)
[2020-11-05] MEDS ORDERED: *HR* Succinylcholine 200 MG/10 ML VIAL IVP ONE (16:43)
[2020-11-05] MEDS: MethylPREDNISolone 40 MG/ML VIAL IVP SCH ×3 (18:01→23:43)
[2020-11-05] MEDS ORDERED: Norepinephrine 4 MG/254 ML IV.SOLN IVC ONE (18:02)
[2020-11-05] MEDS: Ipratropium/Albuterol Neb 3 ML IH SCH ×3 (18:44→23:17)
[2020-11-05] MEDS: Vancomycin 1,500 MG/265 ML IV.SOLN IVPB SCH (20:16)
[2020-11-05] MEDS: Chlorhexidine Rinse 15 ML MOUTHWASH MM SCH (20:16)
[2020-11-05] MEDS: *HR* Heparin 5,000 UNIT/ML VIAL SQ SCH (20:17)
[2020-11-06] MEDS: Ipratropium/Albuterol Neb 3 ML IH SCH ×6 (03:26→23:44)
[2020-11-06] MEDS: Dexmedetomidine HCl 400 MCG/100 ML MLS IVC SCH ×4 (03:41→21:06)
[2020-11-06 03:42] LABS: ABG Base Excess 2 mEq/L (-2 to 3); ABG HCO3 26 mEq/L (21-27); ABG Oxygen Saturation 98 % (95-98); ABG PCO2 35 mmHg (35-45); ABG PH 7.47 pH Units (7.32-7.45); ABG PO2 92 mmHg (85-104); ABG TCO2 27 mEq/L (20-26); Blood Gas Modality ASSIST CONTROL; Blood Gas VT 550 cc
[2020-11-06] MEDS: Artificial Tears SOLN 15 ML BOTTLE BOTH EYES SCH ×6 (03:42→23:20)
[2020-11-06 04:00] LABS: Immature Granulocytes % 0.4 % (0-4); Lymphocytes % 3.1 %
[2020-11-06 04:02] LABS: Eosinophils % 0.1 %; Hematocrit 35.5 % (37.5-50.1); Hemoglobin 11.2 g/dL (12.9-16.9); Immature Platelets 15.3 % (1.1-6.1); Lymphocytes # 0.4 K/mcL (0.6-4.6); Mean Corpuscular HGB Conc 31.5 g/dL (31.6-35.5); Mean Corpuscular Hemoglobin 30.2 pg (28.0-33.3); Mean Corpuscular Volume 95.7 fL (83.0-100.0); Mean Platelet Volume 12.8 fL (9.4-12.4); Monocytes # 0.2 K/mcL (0.0-1.3); Monocytes % 1.4 %; Neutrophils # 10.9 K/mcL (1.6-8.9); Nucleated Red Blood Cells 0.2 /100 WBC (0); Red Blood Count 3.71 M/mcL (4.19-5.50); Red Cell Distribution Width 17.9 % (11.5-14.5); White Blood Count 11.5 K/mcL (4.3-11.1)
[2020-11-06 04:18] LABS: Potassium 5.3 mEq/L (3.5-5.1)
[2020-11-06 04:26] LABS: Platelet Count 57 K/mcL (140-400)
[2020-11-06] MEDS: FentaNYL (PF) 1,000 MCG/100 ML IV.SOLN IVC SCH ×4 (06:22→19:45)
[2020-11-06] MEDS: MethylPREDNISolone 40 MG/ML VIAL IVP SCH ×4 (06:23→23:20)
[2020-11-06] MEDS: *HR* Heparin 5,000 UNIT/ML VIAL SQ SCH ×3 (06:26→21:06)
[2020-11-06] MEDS ORDERED: Calcium Gluconate 1gm/50mL 1 GM/50 ML BAG IVPB ONE (06:52)
[2020-11-06] MEDS: Vancomycin 1,500 MG/265 ML IV.SOLN IVPB SCH ×2 (06:57→17:18)
[2020-11-06] MEDS: Pantoprazole 40 MG VIAL IVP SCH (08:00)
[2020-11-06] MEDS: Piperacillin/Tazobactam 3.375 GM in 0.9 % Sodium Chloride Mini Bag 100 ML IVPB SCH ×3 (08:00→23:20)
[2020-11-06] MEDS: Chlorhexidine Rinse 15 ML MOUTHWASH MM SCH ×2 (08:00→19:39)
[2020-11-06] MEDS: Insulin LISPRO 300 UNITS/3 ML VIAL SUBQ SCH ×4 (08:00→23:25)
[2020-11-06 10:21] LABS: Source of Body Fluid LEFT LOWER LOBE LUNG
[2020-11-06 13:38] LABS: Appearance of Body Fluid Slightly Hazy (Clear); Source of Body Fluid RIGHT LOWER LOBE LUN; Volume of Body Fluid 10 mL
[2020-11-06 13:44] LABS: Appearance of Body Fluid Hazy (Clear); Volume of Body Fluid 10 mL
[2020-11-06] MEDS: Norepinephrine 4 MG/254 ML IV.SOLN IVC SCH (13:56)
[2020-11-06] MEDS ORDERED: Insulin LISPRO 300 UNITS/3 ML VIAL SUBQ SCH (14:11)
[2020-11-07] MEDS: FentaNYL (PF) 1,000 MCG/100 ML IV.SOLN IVC SCH ×2 (02:17→09:51)
[2020-11-07] MEDS: Dexmedetomidine HCl 400 MCG/100 ML MLS IVC SCH ×3 (03:20→16:11)
[2020-11-07] MEDS: Artificial Tears SOLN 15 ML BOTTLE BOTH EYES SCH ×6 (03:21→23:11)
[2020-11-07 03:30] LABS: Hematocrit 33.6 % (37.5-50.1)
[2020-11-07 03:32] LABS: Immature Granulocytes % 0.3 % (0-4); Lymphocytes # 0.5 K/mcL (0.6-4.6); Lymphocytes % 3.6 %; Mean Corpuscular HGB Conc 32.7 g/dL (31.6-35.5); Mean Corpuscular Hemoglobin 30.6 pg (28.0-33.3); Mean Corpuscular Volume 93.3 fL (83.0-100.0); Mean Platelet Volume 12.1 fL (9.4-12.4); Monocytes # 0.5 K/mcL (0.0-1.3); Monocytes % 3.5 %; Neutrophils # 12.7 K/mcL (1.6-8.9); Nucleated Red Blood Cells 0.1 /100 WBC (0); Platelet Count 69 K/mcL (140-400); Segmented Neutrophils % 92.6 %; White Blood Count 13.7 K/mcL (4.3-11.1)
[2020-11-07] MEDS: Ipratropium/Albuterol Neb 3 ML IH SCH ×6 (03:33→23:33)
[2020-11-07 03:47] LABS: BUN/Creatinine Ratio 33 (6-26); Blood Urea Nitrogen 45 mg/dL (8-23); Calcium 8.7 mg/dL (8.6-10.3); Carbon Dioxide 23 mEq/L (23-29); Chloride 101 mEq/L (98-107); Glucose 221 mg/dL (70-105); Osmolality,Calculated 300 (280-300); Sodium 136 mEq/L (136-145); eGFR For African Americans > 60 (> 60); eGFR For Non-African Americans 52 (> 60)
[2020-11-07 04:05] LABS: ABG Base Excess 3 mEq/L (-2 to 3); ABG HCO3 26 mEq/L (21-27); ABG Oxygen Saturation 97 % (95-98); ABG PCO2 35 mmHg (35-45); ABG PH 7.48 pH Units (7.32-7.45); ABG PO2 79 mmHg (85-104); ABG TCO2 27 mEq/L (20-26); Blood Gas Modality ASSIST CONTROL; Blood Gas VT 500 cc
[2020-11-07] MEDS: *HR* Heparin 5,000 UNIT/ML VIAL SQ SCH ×3 (04:57→20:45)
[2020-11-07] MEDS: MethylPREDNISolone 40 MG/ML VIAL IVP SCH ×4 (04:57→23:11)
[2020-11-07] MEDS: Insulin LISPRO 300 UNITS/3 ML VIAL SUBQ SCH ×4 (04:58→23:14)
[2020-11-07 05:08] LABS: Vancomycin,Trough 42 mcg/mL (5-10)
[2020-11-07] MEDS: Chlorhexidine Rinse 15 ML MOUTHWASH MM SCH ×2 (07:18→20:45)
[2020-11-07] MEDS: Pantoprazole 40 MG VIAL IVP SCH (07:18)
[2020-11-07] MEDS: Piperacillin/Tazobactam 3.375 GM in 0.9 % Sodium Chloride Mini Bag 100 ML IVPB SCH ×3 (07:18→23:11)
[2020-11-07] MEDS: Norepinephrine 4 MG/254 ML IV.SOLN IVC SCH (14:13)
[2020-11-07] MEDS ORDERED: traZODone 50 MG TABLET PO SCH (23:00)
[2020-11-08] MEDS: Ipratropium/Albuterol Neb 3 ML IH SCH ×6 (03:35→23:58)
[2020-11-08 03:54] LABS: Immature Granulocytes % 0.5 % (0-4); Red Cell Distribution Width 18.6 % (11.5-14.5); Segmented Neutrophils % 94.5 %
[2020-11-08 03:56] LABS: Hemoglobin 10.2 g/dL (12.9-16.9); Immature Platelets 12.4 % (1.1-6.1); Lymphocytes # 0.4 K/mcL (0.6-4.6); Mean Corpuscular Hemoglobin 29.8 pg (28.0-33.3); Mean Corpuscular Volume 99.4 fL (83.0-100.0); Mean Platelet Volume 12.1 fL (9.4-12.4); Monocytes # 0.3 K/mcL (0.0-1.3); Neutrophils # 12.1 K/mcL (1.6-8.9); Red Blood Count 3.42 M/mcL (4.19-5.50); White Blood Count 12.8 K/mcL (4.3-11.1)
[2020-11-08 04:00] LABS: Platelet Count 85 K/mcL (140-400)
[2020-11-08 04:14] LABS: BUN/Creatinine Ratio 40 (6-26); Blood Urea Nitrogen 49 mg/dL (8-23); Calcium 8.8 mg/dL (8.6-10.3); Carbon Dioxide 26 mEq/L (23-29); Chloride 107 mEq/L (98-107); Glucose 116 mg/dL (70-105); Osmolality,Calculated 310 (280-300); Potassium 3.8 mEq/L (3.5-5.1); Sodium 143 mEq/L (136-145); eGFR For African Americans > 60 (> 60); eGFR For Non-African Americans 59 (> 60)
[2020-11-08] MEDS: Artificial Tears SOLN 15 ML BOTTLE BOTH EYES SCH ×2 (04:23→07:33)
[2020-11-08] MEDS: *HR* Heparin 5,000 UNIT/ML VIAL SQ SCH ×3 (06:54→20:30)
[2020-11-08] MEDS: MethylPREDNISolone 40 MG/ML VIAL IVP SCH (06:54)
[2020-11-08] MEDS: Insulin LISPRO 300 UNITS/3 ML VIAL SUBQ SCH ×3 (06:54→17:06)
[2020-11-08] MEDS: Chlorhexidine Rinse 15 ML MOUTHWASH MM SCH (07:33)
[2020-11-08] MEDS: Pantoprazole 40 MG VIAL IVP SCH (07:33)
[2020-11-08] MEDS: Piperacillin/Tazobactam 3.375 GM in 0.9 % Sodium Chloride Mini Bag 100 ML IVPB SCH ×2 (07:33→16:54)
[2020-11-08] MEDS ORDERED: *HR* Dextrose 50 % in Water (Vial) 50 ML VIAL IVP PRN (14:39)
[2020-11-08] MEDS ORDERED: Ondansetron ODT 4 MG TAB.RAPDIS SL PRN (14:39)
[2020-11-08] MEDS ORDERED: Dextrose Gel 15 GM/37.5 ML TUBE PO PRN ×2 (14:39)
[2020-11-08] MEDS ORDERED: Ipratropium/Albuterol Neb 3 ML IH PRN (14:39)
[2020-11-08] MEDS ORDERED: Acetaminophen 325 MG TABLET PO PRN (14:39)
[2020-11-08] MEDS ORDERED: Naloxone 0.4 MG/ML INJ IVP PRN (14:39)
[2020-11-08] MEDS ORDERED: D5% in Water 1,000 ML IVC PRN (14:39)
[2020-11-08] MEDS ORDERED: Glycopyrrolate 0.2 MG/ML VIAL IVP ONE (14:43)
[2020-11-08] MEDS ORDERED: *HR* LORazepam 2 MG/ML VIAL IVP ONE (14:43)
[2020-11-08] MEDS: traZODone 50 MG TABLET PO SCH (20:29)
[2020-11-09] MEDS: Piperacillin/Tazobactam 3.375 GM in 0.9 % Sodium Chloride Mini Bag 100 ML IVPB SCH ×3 (00:45→16:53)
[2020-11-09] MEDS: Insulin LISPRO 300 UNITS/3 ML VIAL SUBQ SCH ×5 (00:46→21:30)
[2020-11-09 01:08] LABS: Hematocrit 32.7 % (37.5-50.1); Hemoglobin 9.8 g/dL (12.9-16.9); Mean Corpuscular Hemoglobin 29.9 pg (28.0-33.3); Mean Corpuscular Volume 99.7 fL (83.0-100.0); Mean Platelet Volume 11.9 fL (9.4-12.4); Red Blood Count 3.28 M/mcL (4.19-5.50); Red Cell Distribution Width 18.2 % (11.5-14.5); White Blood Count 9.1 K/mcL (4.3-11.1)
[2020-11-09 01:27] LABS: BUN/Creatinine Ratio 42 (6-26); Blood Urea Nitrogen 52 mg/dL (8-23); Calcium 8.6 mg/dL (8.6-10.3); Carbon Dioxide 27 mEq/L (23-29); Chloride 104 mEq/L (98-107); Glucose 101 mg/dL (70-105); Osmolality,Calculated 306 (280-300); Potassium 4.1 mEq/L (3.5-5.1); Sodium 141 mEq/L (136-145); eGFR For African Americans > 60 (> 60); eGFR For Non-African Americans 59 (> 60)
[2020-11-09] MEDS: Ipratropium/Albuterol Neb 3 ML IH SCH ×6 (04:32→23:18)
[2020-11-09] MEDS: *HR* Heparin 5,000 UNIT/ML VIAL SQ SCH ×3 (05:33→21:15)
[2020-11-09] MEDS ORDERED: MethylPREDNISolone 40 MG/ML VIAL IVP SCH ×2 (09:00)
[2020-11-09] MEDS ORDERED: Pantoprazole 40 MG VIAL IVP SCH (09:00)
[2020-11-09] MEDS ORDERED: E-Z-HD (BARIUM SULF) SUSPENSION PO ONE (11:10)
[2020-11-09] MEDS ORDERED: E-Z-PAQUE (BARIUM SULF) SUSP 1 BOTTLE PO ONE (11:10)
[2020-11-09] MEDS: Melatonin 3 MG TABLET PO SCH (21:15)
[2020-11-09] MEDS: traZODone 50 MG TABLET PO SCH (21:15)
[2020-11-09 22:09] LABS: ABG Base Excess 4 mEq/L (-2 to 3); ABG HCO3 32 mEq/L (21-27); ABG Oxygen Saturation 89 % (95-98); ABG PCO2 68 mmHg (35-45); ABG PH 7.28 pH Units (7.32-7.45); ABG PO2 65 mmHg (85-104); ABG TCO2 34 mEq/L (20-26)
[2020-11-10] MEDS: Piperacillin/Tazobactam 3.375 GM in 0.9 % Sodium Chloride Mini Bag 100 ML IVPB SCH ×3 (00:40→16:20)
[2020-11-10] MEDS: Ipratropium/Albuterol Neb 3 ML IH SCH ×6 (03:34→23:25)
[2020-11-10 05:04] LABS: Hematocrit 34.1 % (37.5-50.1); Hemoglobin 10.4 g/dL (12.9-16.9); Mean Corpuscular HGB Conc 30.5 g/dL (31.6-35.5); Mean Corpuscular Hemoglobin 30.9 pg (28.0-33.3); Mean Corpuscular Volume 101.2 fL (83.0-100.0); Mean Platelet Volume 12.2 fL (9.4-12.4); Platelet Count 107 K/mcL (140-400); Red Blood Count 3.37 M/mcL (4.19-5.50); Red Cell Distribution Width 17.6 % (11.5-14.5); White Blood Count 8.2 K/mcL (4.3-11.1)
[2020-11-10] MEDS: *HR* Heparin 5,000 UNIT/ML VIAL SQ SCH ×3 (05:22→21:00)
[2020-11-10 05:23] LABS: BUN/Creatinine Ratio 38 (6-26); Blood Urea Nitrogen 50 mg/dL (8-23); Calcium 8.5 mg/dL (8.6-10.3); Carbon Dioxide 29 mEq/L (23-29); Chloride 105 mEq/L (98-107); Glucose 80 mg/dL (70-105); Osmolality,Calculated 304 (280-300); Potassium 4.4 mEq/L (3.5-5.1); Sodium 141 mEq/L (136-145); eGFR For African Americans > 60 (> 60); eGFR For Non-African Americans 54 (> 60)
[2020-11-10 08:20] LABS: ABG Base Excess 4 mEq/L (-2 to 3); ABG HCO3 32 mEq/L (21-27); ABG Oxygen Saturation 93 % (95-98); ABG PCO2 67 mmHg (35-45); ABG PH 7.29 pH Units (7.32-7.45); ABG PO2 79 mmHg (85-104); ABG TCO2 34 mEq/L (20-26)
[2020-11-10] MEDS: Insulin LISPRO 300 UNITS/3 ML VIAL SUBQ SCH ×3 (09:05→16:18)
[2020-11-10] MEDS ORDERED: Ketamine *HR* 500 MG/10 ML MDV ONE (09:16)
[2020-11-10] MEDS ORDERED: Lidocaine -MPF 2% 2 ML VIAL ONE (09:16)
[2020-11-10] MEDS ORDERED: *HR* Propofol 200 MG/20 ML VIAL IVP ONE (09:17)
[2020-11-10] MEDS ORDERED: *HR* FentaNYL (PF) 100 MCG/2 ML VIAL ONE (09:18)
[2020-11-10] MEDS ORDERED: Lidocaine -MPF 4% 5 ML AMPUL ONE (09:34)
[2020-11-10] MEDS ORDERED: *HR* PHENYLEPHRINE 1,000 MCG/10 ML SYRINGE IVP ONE (09:50)
[2020-11-10] MEDS ORDERED: Furosemide 40 MG/4 ML VIAL IVP ONE (10:40)
[2020-11-10] MEDS: MethylPREDNISolone 40 MG/ML VIAL IVP SCH (12:01)
[2020-11-10] MEDS: Melatonin 3 MG TABLET PO SCH (21:01)
[2020-11-11] MEDS: Piperacillin/Tazobactam 3.375 GM in 0.9 % Sodium Chloride Mini Bag 100 ML IVPB SCH ×3 (00:30→17:35)
[2020-11-11 01:19] LABS: Hematocrit 34.6 % (37.5-50.1); Hemoglobin 10.5 g/dL (12.9-16.9); Mean Corpuscular HGB Conc 30.3 g/dL (31.6-35.5); Mean Corpuscular Hemoglobin 30.3 pg (28.0-33.3); Red Blood Count 3.46 M/mcL (4.19-5.50); Red Cell Distribution Width 17.2 % (11.5-14.5); White Blood Count 8.2 K/mcL (4.3-11.1)
[2020-11-11 01:21] LABS: Platelet Count 97 K/mcL (140-400)
[2020-11-11 01:37] LABS: BUN/Creatinine Ratio 42 (6-26); Blood Urea Nitrogen 48 mg/dL (8-23); Calcium 8.7 mg/dL (8.6-10.3); Carbon Dioxide 29 mEq/L (23-29); Chloride 108 mEq/L (98-107); Glucose 97 mg/dL (70-105); Osmolality,Calculated 309 (280-300); Potassium 5.3 mEq/L (3.5-5.1); Sodium 143 mEq/L (136-145); eGFR For African Americans > 60 (> 60); eGFR For Non-African Americans > 60 (> 60)
[2020-11-11] MEDS: Ipratropium/Albuterol Neb 3 ML IH SCH ×6 (03:44→22:57)
[2020-11-11 04:21] LABS: Adenovirus Not Detected (Not Detect); Bordetella Pertussis Not Detected (Not Detect); Chlamydophila pneumoniae Not Detected (Not Detect); Coronavirus 229E Not Detected (Not Detect); Coronavirus HKU1 Not Detected (Not Detect); Coronavirus NL63 Not Detected (Not Detect); Coronavirus OC43 Not Detected (Not Detect); Human Metapneumovirus Not Detected (Not Detect); Human Rhinovirus/Enterovirus Not Detected (Not Detect); Influenza A Subtype 2009 H1 Not Detected (Not Detect); Influenza B Not Detected (Not Detect); Mycoplasma pneumoniae Not Detected (Not Detect); Parainfluenza Virus 1 Not Detected (Not Detect); Parainfluenza Virus 2 Not Detected (Not Detect); Parainfluenza Virus 3 Not Detected (Not Detect); Parainfluenza Virus 4 Not Detected (Not Detect); Respiratory Syncytial Virus Not Detected (Not Detect); SARS-CoV-2 Not Detected (Not Detect)
[2020-11-11] MEDS: *HR* Heparin 5,000 UNIT/ML VIAL SQ SCH ×3 (05:29→22:12)
[2020-11-11] MEDS: Insulin LISPRO 300 UNITS/3 ML VIAL SUBQ SCH ×5 (07:30→20:15)
[2020-11-11] MEDS: Aspirin Enteric Coated 81 MG Tablet PO SCH ×2 (07:35→08:57)
[2020-11-11] MEDS: MethylPREDNISolone 40 MG/ML VIAL IVP SCH (08:57)
[2020-11-11 11:58] LABS: INR 1.2; Prothrombin Time 14.1 Seconds (9.4-12.1)
[2020-11-11] MEDS ORDERED: Furosemide 40 MG TABLET PO SCH (13:45)
[2020-11-11 14:44] LABS: RBC,Pleural Fluid 5000 RBC/mcL
[2020-11-11] MEDS ORDERED: 0.9 % Sodium Chloride 250 ML IVC ONE (16:20)
[2020-11-11 16:50] LABS: ABG Base Excess 2 mEq/L (-2 to 3); ABG HCO3 36 mEq/L (21-27); ABG Oxygen Saturation 81 % (95-98); ABG PCO2 119 mmHg (35-45); ABG PH 7.09 pH Units (7.32-7.45); ABG PO2 66 mmHg (85-104); ABG TCO2 39 mEq/L (20-26)
[2020-11-11] MEDS ORDERED: Albumin 25% 25gram/100mL 25 GM/100 ML IV.SOLN IVPB ONE (16:58)
[2020-11-11] MEDS ORDERED: Furosemide 40 MG/4 ML VIAL IVP ONE (16:58)
[2020-11-11 18:00] LABS: Appearance of Pleural Fl Cloudy (Clear); Basophils,Pleural Fluid 0 %; Eosinophils,Pleural Fluid 0 %; Monocytes,Pleural Fluid 0 %
[2020-11-11] MEDS: Melatonin 3 MG TABLET PO SCH (20:37)
[2020-11-11 21:57] LABS: ABG Base Excess 5 mEq/L (-2 to 3); ABG HCO3 35 mEq/L (21-27); ABG Oxygen Saturation 97 % (95-98); ABG PCO2 87 mmHg (35-45); ABG PH 7.21 pH Units (7.32-7.45); ABG PO2 112 mmHg (85-104); ABG TCO2 38 mEq/L (20-26); Blood Gas Modality AVAPS; Blood Gas VT 500 cc
[2020-11-11] MEDS: Nystatin POWDER 30 GM BOTTLE TP SCH (22:16)
[2020-11-12] MEDS: Piperacillin/Tazobactam 3.375 GM in 0.9 % Sodium Chloride Mini Bag 100 ML IVPB SCH ×4 (00:08→23:04)
[2020-11-12 02:01] LABS: Basophils % 0.2 %; Hematocrit 36.2 % (37.5-50.1); Hemoglobin 10.7 g/dL (12.9-16.9); Immature Granulocytes % 0.4 % (0-4); Lymphocytes # 0.5 K/mcL (0.6-4.6); Mean Corpuscular HGB Conc 29.6 g/dL (31.6-35.5); Mean Corpuscular Hemoglobin 31.1 pg (28.0-33.3); Mean Corpuscular Volume 105.2 fL (83.0-100.0); Mean Platelet Volume 12.3 fL (9.4-12.4); Monocytes # 0.6 K/mcL (0.0-1.3); Monocytes % 6.4 %; Neutrophils # 8.5 K/mcL (1.6-8.9); Red Blood Count 3.44 M/mcL (4.19-5.50); White Blood Count 9.7 K/mcL (4.3-11.1)
[2020-11-12 02:07] LABS: Platelet Count 91 K/mcL (140-400)
[2020-11-12 02:21] LABS: BUN/Creatinine Ratio 40 (6-26); Blood Urea Nitrogen 50 mg/dL (8-23); Calcium 8.9 mg/dL (8.6-10.3); Carbon Dioxide 28 mEq/L (23-29); Chloride 107 mEq/L (98-107); Glucose 93 mg/dL (70-105); Osmolality,Calculated 311 (280-300); Potassium 4.8 mEq/L (3.5-5.1); Sodium 144 mEq/L (136-145); eGFR For African Americans > 60 (> 60); eGFR For Non-African Americans 58 (> 60)
[2020-11-12 02:27] LABS: Anisocytosis 1+ (Not Present); Macrocytosis Present (Not Present); Platelet Estimate Slight Decrease (Normal)
[2020-11-12] MEDS: Ipratropium/Albuterol Neb 3 ML IH SCH ×6 (04:28→23:59)
[2020-11-12 04:44] LABS: ABG Base Excess 7 mEq/L (-2 to 3); ABG HCO3 39 mEq/L (21-27); ABG Oxygen Saturation 87 % (95-98); ABG PCO2 109 mmHg (35-45); ABG PH 7.16 pH Units (7.32-7.45); ABG PO2 72 mmHg (85-104); ABG TCO2 42 mEq/L (20-26); Blood Gas Modality AVAPS; Blood Gas VT 500 cc
[2020-11-12] MEDS: *HR* Heparin 5,000 UNIT/ML VIAL SQ SCH ×3 (05:29→21:53)
[2020-11-12 05:37] LABS: ABG Base Excess 5 mEq/L (-2 to 3); ABG HCO3 36 mEq/L (21-27); ABG Oxygen Saturation 93 % (95-98); ABG PCO2 92 mmHg (35-45); ABG PO2 88 mmHg (85-104); ABG TCO2 39 mEq/L (20-26); Blood Gas Modality AVAPS; Blood Gas VT 450 cc
[2020-11-12] MEDS: Insulin LISPRO 300 UNITS/3 ML VIAL SUBQ SCH ×4 (07:31→20:16)
[2020-11-12] MEDS: Aspirin Enteric Coated 81 MG Tablet PO SCH (07:32)
[2020-11-12] MEDS: Furosemide 40 MG/4 ML VIAL IVP SCH ×2 (07:43→20:15)
[2020-11-12] MEDS: MethylPREDNISolone 40 MG/ML VIAL IVP SCH (07:44)
[2020-11-12] MEDS: Nystatin POWDER 30 GM BOTTLE TP SCH ×2 (07:44→20:40)
[2020-11-12] MEDS ORDERED: *HR* Propofol 200 MG/20 ML VIAL IVP ONE (11:12)
[2020-11-12] MEDS ORDERED: Lidocaine -MPF 2% 2 ML VIAL ONE (11:59)
[2020-11-12] MEDS: Melatonin 3 MG TABLET PO SCH (20:15)
[2020-11-13] MEDS: Ipratropium/Albuterol Neb 3 ML IH SCH ×6 (03:48→23:42)
[2020-11-13 04:13] LABS: Basophils % 0.1 %; Eosinophils % 0.1 %; Hematocrit 35.4 % (37.5-50.1); Hemoglobin 10.8 g/dL (12.9-16.9); Immature Granulocytes % 0.5 % (0-4); Lymphocytes # 0.6 K/mcL (0.6-4.6); Mean Corpuscular HGB Conc 30.5 g/dL (31.6-35.5); Mean Corpuscular Hemoglobin 30.9 pg (28.0-33.3); Mean Corpuscular Volume 101.4 fL (83.0-100.0); Mean Platelet Volume 12.1 fL (9.4-12.4); Monocytes # 1.1 K/mcL (0.0-1.3); Monocytes % 6.9 %; Neutrophils # 13.4 K/mcL (1.6-8.9); Platelet Count 138 K/mcL (140-400); Red Blood Count 3.49 M/mcL (4.19-5.50); Red Cell Distribution Width 16.3 % (11.5-14.5); Segmented Neutrophils % 88.4 %
[2020-11-13 04:18] LABS: White Blood Count 15.2 K/mcL (4.3-11.1)
[2020-11-13 04:25] LABS: BUN/Creatinine Ratio 48 (6-26); Blood Urea Nitrogen 56 mg/dL (8-23); Calcium 9.1 mg/dL (8.6-10.3); Carbon Dioxide 35 mEq/L (23-29); Chloride 102 mEq/L (98-107); Glucose 119 mg/dL (70-105); Osmolality,Calculated 319 (280-300); Potassium 4.1 mEq/L (3.5-5.1); Sodium 146 mEq/L (136-145); eGFR For African Americans > 60 (> 60); eGFR For Non-African Americans > 60 (> 60)
[2020-11-13] MEDS: *HR* Heparin 5,000 UNIT/ML VIAL SQ SCH ×3 (05:31→21:30)
[2020-11-13] MEDS: Insulin LISPRO 300 UNITS/3 ML VIAL SUBQ SCH ×3 (07:40→21:51)
[2020-11-13] MEDS: Furosemide 40 MG/4 ML VIAL IVP SCH ×2 (08:46→21:32)
[2020-11-13] MEDS: MethylPREDNISolone 40 MG/ML VIAL IVP SCH (08:46)
[2020-11-13] MEDS: Aspirin Enteric Coated 81 MG Tablet PO SCH (08:46)
[2020-11-13] MEDS: Piperacillin/Tazobactam 3.375 GM in 0.9 % Sodium Chloride Mini Bag 100 ML IVPB SCH (08:47)
[2020-11-13] MEDS: Nystatin POWDER 30 GM BOTTLE TP SCH (08:48)
[2020-11-13] MEDS ORDERED: Dextrose Gel 15 GM/37.5 ML TUBE PO PRN ×4 (09:24→11:39)
[2020-11-13] MEDS ORDERED: *HR* Dextrose 50 % in Water (Vial) 50 ML VIAL IVP PRN ×2 (09:24→11:39)
[2020-11-13] MEDS ORDERED: Ipratropium/Albuterol Neb 3 ML IH PRN ×2 (09:24→11:39)
[2020-11-13] MEDS ORDERED: Acetaminophen 325 MG TABLET PO PRN ×2 (09:24→11:39)
[2020-11-13] MEDS ORDERED: Ondansetron ODT 4 MG TAB.RAPDIS SL PRN ×2 (09:24→11:39)
[2020-11-13] MEDS ORDERED: D5% in Water 1,000 ML IVC PRN ×2 (09:24→11:39)
[2020-11-13] MEDS ORDERED: Naloxone 0.4 MG/ML INJ IVP PRN ×2 (09:24→11:39)
[2020-11-13] MEDS ORDERED: Insulin LISPRO 300 UNITS/3 ML VIAL SUBQ SCH ×2 (11:30→21:00)
[2020-11-13] MEDS ORDERED: Ipratropium/Albuterol Neb 3 ML IH SCH (12:00)
[2020-11-13] MEDS ORDERED: *HR* Heparin 5,000 UNIT/ML VIAL SQ SCH (14:00)
[2020-11-13] MEDS ORDERED: Piperacillin/Tazobactam 3.375 GM in 0.9 % Sodium Chloride Mini Bag 100 ML IVPB SCH ×2 (16:00)
[2020-11-13] MEDS ORDERED: Ringers Solution, Lactated 250 ML IVC PRN (18:15)
[2020-11-13] MEDS ORDERED: Ringers Solution, Lactated 500 ML ONE (18:17)
[2020-11-13] MEDS ORDERED: Melatonin 3 MG TABLET PO SCH (21:00)
[2020-11-13] MEDS ORDERED: Furosemide 40 MG/4 ML VIAL IVP SCH (21:00)
[2020-11-13] MEDS ORDERED: Nystatin POWDER 30 GM BOTTLE TP SCH (21:00)
[2020-11-13] MEDS: Melatonin 3 MG TABLET PO SCH (21:00)
[2020-11-14 02:58] LABS: Basophils % 0.1 %; Hematocrit 37.9 % (37.5-50.1); Hemoglobin 11.4 g/dL (12.9-16.9); Immature Granulocytes % 0.7 % (0-4); Lymphocytes # 0.6 K/mcL (0.6-4.6); Lymphocytes % 4.9 %; Mean Corpuscular HGB Conc 30.1 g/dL (31.6-35.5); Monocytes # 0.9 K/mcL (0.0-1.3); Monocytes % 7.5 %; Neutrophils # 10.4 K/mcL (1.6-8.9); Platelet Count 164 K/mcL (140-400); Red Blood Count 3.68 M/mcL (4.19-5.50); Red Cell Distribution Width 16.1 % (11.5-14.5); Segmented Neutrophils % 86.8 %; White Blood Count 11.9 K/mcL (4.3-11.1)
[2020-11-14 03:37] LABS: BUN/Creatinine Ratio 40 (6-26); Blood Urea Nitrogen 50 mg/dL (8-23); Calcium 9.3 mg/dL (8.6-10.3); Carbon Dioxide 38 mEq/L (23-29); Chloride 100 mEq/L (98-107); Glucose 114 mg/dL (70-105); Osmolality,Calculated 318 (280-300); Potassium 4.3 mEq/L (3.5-5.1); Sodium 147 mEq/L (136-145); eGFR For African Americans > 60 (> 60); eGFR For Non-African Americans 58 (> 60)
[2020-11-14] MEDS: Ipratropium/Albuterol Neb 3 ML IH SCH ×5 (04:21→19:35)
[2020-11-14] MEDS: *HR* Heparin 5,000 UNIT/ML VIAL SQ SCH ×3 (05:47→21:09)
[2020-11-14] MEDS: Nystatin POWDER 30 GM BOTTLE TP SCH ×3 (05:48→21:09)
[2020-11-14] MEDS: Insulin LISPRO 300 UNITS/3 ML VIAL SUBQ SCH ×4 (07:34→21:09)
[2020-11-14] MEDS ORDERED: MethylPREDNISolone 40 MG/ML VIAL IVP SCH ×2 (09:00)
[2020-11-14] MEDS ORDERED: Aspirin Enteric Coated 81 MG Tablet PO SCH ×2 (09:00)
[2020-11-14] MEDS: Furosemide 40 MG/4 ML VIAL IVP SCH ×2 (10:22→21:08)
[2020-11-14 17:54] LABS: Appearance of Body Fluid Cloudy (Clear); Volume of Body Fluid 7 mL
[2020-11-14 20:01] LABS: ABG Base Excess -5 mEq/L (-2 to 3); ABG HCO3 20 mEq/L (21-27); ABG Oxygen Saturation 100 % (95-98); ABG PCO2 35 mmHg (35-45); ABG PH 7.37 pH Units (7.32-7.45); ABG PO2 566 mmHg (85-104); ABG TCO2 21 mEq/L (20-26); Blood Gas Modality ASSIST CONTROL; Blood Gas VT 480 cc
[2020-11-14] MEDS: Melatonin 3 MG TABLET PO SCH (21:09)
[2020-11-15] MEDS: Ipratropium/Albuterol Neb 3 ML IH SCH ×5 (03:32→20:14)
[2020-11-15 04:03] LABS: Basophils % 0.1 %; Hematocrit 37.1 % (37.5-50.1); Hemoglobin 11.2 g/dL (12.9-16.9); Immature Granulocytes % 0.6 % (0-4); Lymphocytes # 0.3 K/mcL (0.6-4.6); Lymphocytes % 2.7 %; Mean Corpuscular HGB Conc 30.2 g/dL (31.6-35.5); Mean Corpuscular Hemoglobin 30.9 pg (28.0-33.3); Mean Corpuscular Volume 102.5 fL (83.0-100.0); Mean Platelet Volume 11.8 fL (9.4-12.4); Monocytes # 0.6 K/mcL (0.0-1.3); Monocytes % 5.1 %; Neutrophils # 10.1 K/mcL (1.6-8.9); Platelet Count 195 K/mcL (140-400); Red Blood Count 3.62 M/mcL (4.19-5.50); Red Cell Distribution Width 16.1 % (11.5-14.5); Segmented Neutrophils % 91.5 %; White Blood Count 11.1 K/mcL (4.3-11.1)
[2020-11-15 04:27] LABS: BUN/Creatinine Ratio 51 (6-26); Blood Urea Nitrogen 50 mg/dL (8-23); Calcium 9.2 mg/dL (8.6-10.3); Carbon Dioxide 44 mEq/L (23-29); Chloride 101 mEq/L (98-107); Glucose 114 mg/dL (70-105); Osmolality,Calculated 328 (280-300); Potassium 4.2 mEq/L (3.5-5.1); Sodium 152 mEq/L (136-145); eGFR For African Americans > 60 (> 60); eGFR For Non-African Americans > 60 (> 60)
[2020-11-15] MEDS: *HR* Heparin 5,000 UNIT/ML VIAL SQ SCH (05:40)
[2020-11-15] MEDS: Insulin LISPRO 300 UNITS/3 ML VIAL SUBQ SCH (08:23)
[2020-11-15] MEDS ORDERED: Naloxone 0.4 MG/ML INJ IVP PRN (12:31)
[2020-11-15] MEDS ORDERED: Ondansetron ODT 4 MG TAB.RAPDIS SL PRN (12:31)
[2020-11-15] MEDS ORDERED: D5% in Water 1,000 ML IVC PRN (12:31)
[2020-11-15] MEDS ORDERED: *HR* Dextrose 50 % in Water (Vial) 50 ML VIAL IVP PRN (12:31)
[2020-11-15] MEDS ORDERED: Dextrose Gel 15 GM/37.5 ML TUBE PO PRN ×2 (12:31)
[2020-11-15] MEDS ORDERED: Vancomycin 1,750 MG in 0.9 % Sodium Chloride 250 ML IVPB SCH (13:00)
[2020-11-15] MEDS ORDERED: *HR* Heparin 5,000 UNIT/ML VIAL SQ SCH (14:00)
[2020-11-15] MEDS ORDERED: Insulin LISPRO 300 UNITS/3 ML VIAL SUBQ SCH (16:00)
[2020-11-15 19:21] VITALS: BP 94/59
[2020-11-15] MEDS ORDERED: Nystatin POWDER 30 GM BOTTLE TP SCH (21:00)
[2020-11-15] MEDS ORDERED: Melatonin 3 MG TABLET GTUBE SCH (21:00)
[2020-11-16] MEDS ORDERED: Aspirin 81 MG TAB.CHEW GTUBE SCH (09:00)
[2020-11-16] MEDS ORDERED: MethylPREDNISolone 40 MG/ML VIAL IVP SCH (09:00)
[2020-11-16] MEDS ORDERED: Furosemide 40 MG/4 ML VIAL IVP SCH (09:00)
[2020-11-17 09:12] LABS: Influenza A PCR Body Fluid NOT DETECTED; Influenza B PCR Body Fluid NOT DETECTED; RVP Body Fluid Source BAL
[2020-11-17 10:30] LABS: RSV PCR Body Fluid NOT DETECTED
== END 2020-11-15 22:16 | disposition expired | DRG 981 ==
LOC: 2NNU 12:35 → EMEROOARM 12:35 → SUATTDRO 19:24 → 2NNU 21:10 → ICNU 11-05 14:40 → SUATTDRO 11-05 20:38 → 3ANU 11-08 17:41 → 2NNU 11-10 11:06 → ICNU 11-12 12:19 → 2NENU 11-15 09:35
PROVIDERS: ADMIT Student in an Organized Health Care Education/Training Program; ATTEND Internal Medicine